=== PATIENT | male | born 1985 | race Caucasian/White ===

== ENCOUNTER 2021-11-29 19:11 | Emergency (ER) | payer OTHER ==
[2021-11-29 19:23] VITALS: TEMP 98.9
[2021-11-29 19:44] LABS: Appearance,Urine Clear (Clear); Bilirubin,Urine Negative (Negative); Blood,Urine Negative (Negative); Color,Urine Light Yellow; Glucose,Urine (UA) Negative (Negative); Ketones,Urine Negative (Negative); Leukocyte Esterase,Urine Negative (Negative); Nitrite,Urine Negative (Negative); PH, Urine 6.5 (5.0-8.0); Protein,Urine Negative (Negative); Specific Gravity,Urine 1.003 (1.001-1.035); Urobilinogen,Urine <2.0 mg/dL (<2.0)
[2021-11-29 20:00] LABS: Amphetamine Screen,Urine Detected (NotDetected); Barbiturate Screen,Urine Not Detected (NotDetected); Benzodiazepines Screen,Urine Not Detected (NotDetected); Cocaine Screen,Urine Not Detected (NotDetected); Methadone Screen, Urine Not Detected (NotDetected); Opiate Screen,Urine Not Detected (NotDetected); Oxycodone Screen, Urine Not Detected (NotDetected); Phencyclidine Screen,Urine Not Detected (NotDetected); Tricyclic Antidepressant,Urine Not Detected (NotDetected); Urn Cannabinoid Scrn Detected (NotDetected)
--- NOTE | 2021-11-29 21:45 | ED ---
General Adult HPI - General Source: patient Mode of arrival: ambulatory Limitations: no limitations <Preston Chandra - Last Filed: 11/29/21 22:49> <Cosmo Barton - Last Filed: 11/30/21 12:49> - General Chief complaint: Psychiatric Symptoms Stated complaint: Mental health eval Time Seen by Provider: 11/29/21 19:28 - History of Present Illness Initial comments: Dictation was produced using [employer] dictation software. please excuse any grammatical, word or spelling errors. Chief Complaint: 36-year-old male presents to the emergency department for visual and auditory hallucinations. History of Present Illness: 6-year-old male who presents to emergency Department with request for mental health admission. Patient states that he has been having visual and auditory hallucinations. Denies any suicidal or homicidal ideation. Patient state he used sympathomimetics recently and states that he still high. Patient has no medical complaints. The ROS documented in this emergency department record has been reviewed and confirmed by me. Those systems with pertinent positive or negative responses have been documented in the HPI. All other systems are other negative and/or noncontributory. PHYSICAL EXAM: General Impression: Alert and oriented x3, not in acute distress HEENT: Normocephalic atraumatic, extra-ocular movements intact, pupils equal and reactive to light bilaterally, mucous membranes moist. Cardiovascular: Heart regular rate and rhythm Chest: Able to complete full sentences, no retractions, no tachypnea Abdomen: abdomen soft, non-tender, non-distended, no organomegaly Musculoskeletal: Pulses present and equal in all extremities, no peripheral edema Motor: no focal deficits noted Neurological: CN II-XII grossly intact, no focal motor or sensory deficits noted Skin: Intact with no visualized rashes Psych: Normal affect and mood ED course: 36-year-old male presents emergency department for psychiatric complaint. Patient reporting visual auditory hallucinations. Signs upon arrival are within acceptable limits. Patient is well-appearing and not complaining of any medical issues at this time. Patient had been in the waiting room for approximately 2 hours and 30 minutes until he was able to be rubbed in bed 14. Patient medically cleared for EPS evaluation. care signed out to Dr. Priest pending EPS evaluation. (Preston Chandra) - Related Data Home Medications Medication Instructions Recorded Confirmed No Known Home Medications 11/29/21 11/29/21 Allergies Allergy/AdvReac Type Severity Reaction Status Date / Time venom-honey bee Allergy Anaphylaxis Verified 11/29/21 22:59 [bee venom (honey bee)] Review of Systems ROS Other: All systems not noted in ROS Statement are negative. <Preston Chandra - Last Filed: 11/29/21 22:49> ROS Other: All systems not noted in ROS Statement are negative. <Cosmo Barton - Last Filed: 11/30/21 12:49> ROS Statement: Those systems with pertinent positive or pertinent negative responses have been documented in the HPI. Past Medical History Past Medical History: Hypertension Additional Past Medical History / Comment(s): IVDA History of Any Multi-Drug Resistant Organisms: None Reported Past Surgical History: No Surgical Hx Reported Past Anesthesia/Blood Transfusion Reactions: Unable to Obtain Past Psychological History: ADD/ADHD, Anxiety, Bipolar, Depression, PTSD Smoking Status: Current every day smoker Past Alcohol Use History: Daily Past Drug Use History: IV Drug Use, Methamphetamine <Preston Chandra - Last Filed: 11/29/21 22:49> General Exam Limitations: no limitations <Preston Chandra - Last Filed: 11/29/21 22:49> Course Vital Signs 11/29/21 19:18 Temperature 98.9 F Pulse Rate 108 H Respiratory 22 Rate Blood Pressure 165/101 O2 Sat by Pulse 98 Oximetry Medical Decision Making - Lab Data Result diagrams: 11/30/21 03:13 11/30/21 03:13 <Cosmo Barton - Last Filed: 11/30/21 12:49> - Medical Decision Making Patient was putting psych evaluation. EPS and psychiatry Dr. Edwards evaluated the patient in that he is stable for discharge home. Will provide with a safety plan. Patient was discharged home in stable condition. (Cosmo Barton) - Lab Data Lab Results 11/29/21 11/30/21 11/30/21 Range/Units 19:31 03:13 03:13 WBC 14.5 H (3.8-10.6) k/uL RBC 4.92 (4.30-5.90) m/uL Hgb 16.5 (13.0-17.5) gm/dL Hct 47.5 (39.0-53.0) % MCV 96.4 (80.0-100.0) fL MCH 33.5 (25.0-35.0) pg MCHC 34.7 (31.0-37.0) g/dL RDW 13.4 (11.5-15.5) % Plt Count 384 (150-450) k/uL MPV 6.8 Neutrophils % 76 % Lymphocytes % 15 % Monocytes % 6 % Eosinophils % 1 % Basophils % 0 % Neutrophils # 11.1 H (1.3-7.7) k/uL Lymphocytes # 2.2 (1.0-4.8) k/uL Monocytes # 0.9 (0-1.0) k/uL Eosinophils # 0.1 (0-0.7) k/uL Basophils # 0.0 (0-0.2) k/uL Sodium 134 L (137-145) mmol/L Potassium 4.3 (3.5-5.1) mmol/L Chloride 101 (98-107) mmol/L Carbon Dioxide 23 (22-30) mmol/L Anion Gap 10 mmol/L BUN 13 (9-20) mg/dL Creatinine 0.87 (0.66-1.25) mg/dL Est GFR (CKD-EPI)AfAm >90 (>60 ml/min/1.73 sqM) Est GFR (CKD-EPI)NonAf >90 (>60 ml/min/1.73 sqM) Glucose 102 H (74-99) mg/dL Calcium 10.0 (8.4-10.2) mg/dL Magnesium 1.8 (1.6-2.3) mg/dL Urine Color Light Yellow Urine Appearance Clear (Clear) Urine pH 6.5 (5.0-8.0) Ur Specific [place] 1.003 (1.001-1.035) Urine Protein Negative (Negative) Urine Glucose (UA) Negative (Negative) Urine Ketones Negative (Negative) Urine Blood Negative (Negative) Urine Nitrite Negative (Negative) Urine Bilirubin Negative (Negative) Urine Urobilinogen <2.0 (<2.0) mg/dL Ur Leukocyte Esterase Negative (Negative) Urine Opiates Screen Not Detected (NotDetected) Ur Oxycodone Screen Not Detected (NotDetected) Urine Methadone Screen Not Detected (NotDetected) Ur Propoxyphene Screen Not Detected (NotDetected) Ur Barbiturates Screen Not Detected (NotDetected) U Tricyclic Antidepress Not Detected (NotDetected) Ur Phencyclidine Scrn Not Detected (NotDetected) Ur Amphetamines Screen Detected H (NotDetected) U Methamphetamines Scrn Detected H (NotDetected) U Benzodiazepines Scrn Not Detected (NotDetected) Urine Cocaine Screen Not Detected (NotDetected) U Marijuana (THC) Screen Detected H (NotDetected) Disposition <Preston Chandra - Last Filed: 11/29/21 22:49> Is patient prescribed a controlled substance at d/c from ED?: No <Cosmo Barton - Last Filed: 11/30/21 12:49> Clinical Impression: Encounter for psychiatric assessment Disposition: HOME SELF-CARE Condition: Fair Additional Instructions: Please see safety plan for further instructions. Referrals: None,Stated [Primary Care Provider] - 1-2 days
[2021-11-30] MEDS ORDERED: LORazepam 1 MG TAB PO STA (00:35)
[2021-11-30] MEDS ORDERED: ZIPRASIDONE 20 MG CAP PO STA (01:49)
[2021-11-30] MEDS ORDERED: SODIUM CHLORIDE 0.9% 1,000 ML IV ONE (02:40)
[2021-11-30 03:45] LABS: Basophils % (A) 0 %; Eosinophils # (A) 0.1 k/uL (0-0.7); Eosinophils % (A) 1 %; HCT 47.5 % (39.0-53.0); HGB 16.5 gm/dL (13.0-17.5); Lymphocytes # (A) 2.2 k/uL (1.0-4.8); Lymphocytes % (A) 15 %; MCH 33.5 pg (25.0-35.0); MCHC 34.7 g/dL (31.0-37.0); MCV 96.4 fL (80.0-100.0); Mean Platelet Volume 6.8; Monocytes # (A) 0.9 k/uL (0-1.0); Monocytes % (A) 6 %; Neutrophils # (A) 11.1 k/uL (1.3-7.7); Neutrophils % (A) 76 %; Platelet Count 384 k/uL (150-450); RBC 4.92 m/uL (4.30-5.90); RDW 13.4 % (11.5-15.5); WBC 14.5 k/uL (3.8-10.6)
[2021-11-30 04:03] LABS: African American GFR (CKD) >90 (>60 ml/min/1.73 sqM); Anion Gap 10 mmol/L; Blood Urea Nitrogen 13 mg/dL (9-20); Carbon Dioxide 23 mmol/L (22-30); Chloride 101 mmol/L (98-107); Glucose 102 mg/dL (74-99); Magnesium 1.8 mg/dL (1.6-2.3); Non-African American GFR(CKD) >90 (>60 ml/min/1.73 sqM); Potassium 4.3 mmol/L (3.5-5.1); Sodium 134 mmol/L (137-145)
[2021-11-30 13:39] VITALS: BP 148/81; PULSE 96; RESP 18
== END 2021-11-30 13:39 | disposition home or self-care (01) ==
LOC: EC 19:11
DX: R44.0 Auditory hallucinations (principal); I10 Essential (primary) hypertension; F17.200 Nicotine dependence, unspecified, uncomplicated; Z91.030 Bee allergy status
CPT/HCPCS: 36415; 80048; 80306; 81003; 82075; 83735; 85025; 96360; 99284

== ENCOUNTER 2022-06-06 21:30 | Emergency (ER) | payer OTHER ==
[2022-06-06 21:49] VITALS: BP 149/84
--- NOTE | 2022-06-06 22:09 | ED ---
General Adult HPI - General Chief complaint: Drug Screen Stated complaint: Detox Time Seen by Provider: 06/06/22 21:41 Source: patient, RN notes reviewed Mode of arrival: EMS Limitations: no limitations - History of Present Illness Initial comments: 37-year-old male with a history of methamphetamine abuse presents to the emergency department with a chief complaint of medical clearance. She reports that he is a patient at [facility] for alcohol withdrawal and detox, and [facility] requested that he be evaluated in the emergency department. Patient reports that he snorted two lines of methamphetamine two days ago and reports feeling jittery and is unable to sit still. Patient reports that his last drink was beer on saturday. He denies headache, fever, chills, chest pain, palpitations, shortness of breath, cough, abdominal pain, NVD, dysuria. Patient denies homicidal/suicidal ideation. Denies auditory/visual hallucinations. - Related Data Home Medications Medication Instructions Recorded Confirmed No Known Home Medications 11/29/21 11/29/21 Allergies Allergy/AdvReac Type Severity Reaction Status Date / Time venom-honey bee Allergy Anaphylaxis Verified 11/29/21 22:59 [bee venom (honey bee)] Review of Systems ROS Statement: Those systems with pertinent positive or pertinent negative responses have been documented in the HPI. ROS Other: All systems not noted in ROS Statement are negative. Past Medical History Past Medical History: Hypertension Additional Past Medical History / Comment(s): IVDA History of Any Multi-Drug Resistant Organisms: None Reported Past Surgical History: No Surgical Hx Reported Past Anesthesia/Blood Transfusion Reactions: Unable to Obtain Past Psychological History: ADD/ADHD, Anxiety, Bipolar, Depression, PTSD Smoking Status: Current every day smoker Past Alcohol Use History: Daily Past Drug Use History: IV Drug Use, Methamphetamine General Exam Limitations: no limitations General appearance: alert, in no apparent distress, anxious, other (Pt is pacing around room, patient is hyperactive but cooperative when given commands) Head exam: Present: atraumatic, normocephalic, normal inspection Eye exam: Present: normal appearance, PERRL, EOMI. Absent: scleral icterus, conjunctival injection, periorbital swelling ENT exam: Present: normal exam, mucous membranes moist Neck exam: Present: normal inspection. Absent: tenderness, meningismus, lymphadenopathy Respiratory exam: Present: normal lung sounds bilaterally. Absent: respiratory distress, wheezes, rales, rhonchi, stridor Cardiovascular Exam: Present: regular rate, normal rhythm, normal heart sounds. Absent: systolic murmur, diastolic murmur, rubs, gallop, clicks GI/Abdominal exam: Present: soft, normal bowel sounds. Absent: distended, tenderness, guarding, rebound, rigid Extremities exam: Present: normal inspection, full ROM, normal capillary refill. Absent: tenderness, pedal edema, joint swelling, calf tenderness Back exam: Present: normal inspection Neurological exam: Present: alert, oriented X3, CN II-XII intact Psychiatric exam: Present: normal affect, normal mood Skin exam: Present: warm, dry, intact, normal color. Absent: rash Course Vital Signs 06/06/22 21:48 Pulse Rate 84 Respiratory 18 Rate Blood Pressure 149/84 O2 Sat by Pulse 99 Oximetry EKG Findings - EKG Comments: EKG Findings:: I interpreted the following: EKG performed at 22:18. Rate 85 bpm normal sinus rhythm. GA interval 159, QRS duration 105, QT/QTc 360/403 Medical Decision Making - Medical Decision Making Was pt. sent in by a medical professional or institution (BRIDGER Zuniga, [employer], urgent care, hospital, or group home...) When possible be specific @ -[No] Did you speak to anyone other than the patient for history (EMS, parent, family, police, friend...)? What history was obtained from this source @ -[No] Did you review nursing and triage notes (agree or disagree)? Why? @ -[I reviewed and agree with nursing and triage notes] Were old charts reviewed (outside hosp., previous admission, EMS record, old EKG, old radiological studies, urgent care reports/EKG's, group home records)? Report findings @ -[No old charts were reviewed] Differential Diagnosis (chest pain, altered mental status, abdominal pain women, abdominal pain men, vaginal bleeding, weakness, fever, dyspnea, syncope, headache, dizziness, GI bleed, back pain, seizure, CVA, palpatations, mental health)? @ -[not applicable] EKG interpreted by me (3pts min.). @ -[As above] X-rays interpreted by me (1pt min.). @ -[None done] CT interpreted by me (1pt min.). @ -[None done] U/S interpreted by me (1pt. min.). @ -[None done] What testing was considered but not performed or refused? (CT, X-rays, U/S, labs)? Why? @ -[None] What meds were considered but not given or refused? Why? @ -[None] Did you discuss the management of the patient with other professionals (professionals i.e. Dr., PA, PR[employer]AL [employer]ER, lab, RT, psych nurse, social science manager, hammersmith helper, teacher, program officer, porter sample case)? Give summary @ -[No] Was smoking cessation discussed for >3mins.? @ -[No] Was critical care preformed (if so, how long)? @ -[No] Were there social determinants of health that impacted care today? How? (Homelessness, low income, unemployed, alcoholism, drug addiction, transportation, low edu. Level, literacy, decrease access to med. care, detention, rehab)? @ -[No] Was there de-escalation of care discussed even if they declined (Discuss DNR or withdrawal of care, Hospice)? DNR status @ -[No] What co-morbidities impacted this encounter? (DM, HTN, Smoking, COPD, CAD, Cancer, CVA, ARF, Chemo, Hep., AIDS, mental health diagnosis, sleep apnea, morbid obesity)? @ -[None] Was patient admitted / discharged? Hospital course, mention meds given and route, prescriptions, significant lab abnormalities, going to OR and other pertinent info. @ -37 -year-old male presents to the emergency department for medical clearance. She had a history and physical performed while in the emergency department. physical exam reveals anxious, pleasant male in no acute distress, heart rate regular, lung sounds clear bilaterally. Lab work and EKG essentially unremarkable. Patient is medically cleared. He was encouraged to follow up with his primary care doctor within 1-2 days if symptoms worsen or persist. Return precautions were discussed. Patient was discharged in stable condition all questions and comments were addressed. I discussed the case with Dr. Arreaga [facility] who agrees with the plan of care. Undiagnosed new problem with uncertain prognosis? @ -[No] Drug Therapy requiring intensive monitoring for toxicity (Heparin, Nitro, Insulin, Cardizem)? @ -[No] Were any procedures done? @ -[No] Diagnosis/symptom? @ -medical clearance a Acute, or Chronic, or Acute on Chronic? @ acute Uncomplicated (without systemic symptoms) or Complicated (systemic symptoms)? @ -uncomplicated Side effects of treatment? @ -[No] Exacerbation, Progression, or Severe Exacerbation? @ -[No] Poses a threat to life or bodily function? How? (Chest pain, USA, ID, pneumonia, PE, COPD, DKA, ARF, appy, cholecystitis, CVA, Diverticulitis, Homicidal, Suicidal, threat to staff... and all critical care pts) @ -[No] - Lab Data Result diagrams: 06/06/22 22:12 06/06/22 22:12 Lab Results 06/06/22 06/06/22 06/06/22 Range/Units 21:33 22:12 22:12 WBC 12.6 H (3.8-10.6) k/uL RBC 4.71 (4.30-5.90) m/uL Hgb 15.9 (13.0-17.5) gm/dL Hct 45.2 (39.0-53.0) % MCV 96.0 (80.0-100.0) fL MCH 33.7 (25.0-35.0) pg MCHC 35.1 (31.0-37.0) g/dL RDW 12.0 (11.5-15.5) % Plt Count 413 (150-450) k/uL MPV 6.5 Neutrophils % 66 % Lymphocytes % 23 % Monocytes % 7 % Eosinophils % 2 % Basophils % 1 % Neutrophils # 8.3 H (1.3-7.7) k/uL Lymphocytes # 2.9 (1.0-4.8) k/uL Monocytes # 0.9 (0-1.0) k/uL Eosinophils # 0.2 (0-0.7) k/uL Basophils # 0.1 (0-0.2) k/uL Sodium 134 L (137-145) mmol/L Potassium 4.7 (3.5-5.1) mmol/L Chloride 101 (98-107) mmol/L Carbon Dioxide 26 (22-30) mmol/L Anion Gap 7 mmol/L BUN 14 (9-20) mg/dL Creatinine 0.79 (0.66-1.25) mg/dL Est GFR (CKD-EPI)AfAm >90 (>60 ml/min/1.73 sqM) Est GFR (CKD-EPI)NonAf >90 (>60 ml/min/1.73 sqM) Glucose 89 (74-99) mg/dL Calcium 9.4 (8.4-10.2) mg/dL Urine Opiates Screen Not Detected (NotDetected) Ur Oxycodone Screen Not Detected (NotDetected) Urine Methadone Screen Not Detected (NotDetected) Ur Propoxyphene Screen Not Detected (NotDetected) Ur Barbiturates Screen Not Detected (NotDetected) U Tricyclic Antidepress Not Detected (NotDetected) Ur Phencyclidine Scrn Not Detected (NotDetected) Ur Amphetamines Screen Detected H (NotDetected) U Methamphetamines Scrn Detected H (NotDetected) U Benzodiazepines Scrn Not Detected (NotDetected) Urine Cocaine Screen Not Detected (NotDetected) U Marijuana (THC) Screen Detected H (NotDetected) Disposition Clinical Impression: Well adult exam Disposition: HOME SELF-CARE Condition: Stable Additional Instructions: Please return to the nearest emergency department if symptoms worsen or persist. Is patient prescribed a controlled substance at d/c from ED?: No Referrals: None,Stated [Primary Care Provider] - 1-2 days
[2022-06-06 22:19] LABS: Basophils # (A) 0.1 k/uL (0-0.2); Basophils % (A) 1 %; Eosinophils # (A) 0.2 k/uL (0-0.7); Eosinophils % (A) 2 %; HCT 45.2 % (39.0-53.0); HGB 15.9 gm/dL (13.0-17.5); Lymphocytes # (A) 2.9 k/uL (1.0-4.8); Lymphocytes % (A) 23 %; MCH 33.7 pg (25.0-35.0); MCHC 35.1 g/dL (31.0-37.0); Mean Platelet Volume 6.5; Monocytes # (A) 0.9 k/uL (0-1.0); Monocytes % (A) 7 %; Neutrophils # (A) 8.3 k/uL (1.3-7.7); Neutrophils % (A) 66 %; Platelet Count 413 k/uL (150-450); RBC 4.71 m/uL (4.30-5.90); WBC 12.6 k/uL (3.8-10.6)
[2022-06-06 22:27] LABS: Amphetamine Screen,Urine Detected (NotDetected); Barbiturate Screen,Urine Not Detected (NotDetected); Benzodiazepines Screen,Urine Not Detected (NotDetected); Cocaine Screen,Urine Not Detected (NotDetected); Methadone Screen, Urine Not Detected (NotDetected); Opiate Screen,Urine Not Detected (NotDetected); Oxycodone Screen, Urine Not Detected (NotDetected); Phencyclidine Screen,Urine Not Detected (NotDetected); Tricyclic Antidepressant,Urine Not Detected (NotDetected); Urn Cannabinoid Scrn Detected (NotDetected)
[2022-06-06 22:28] LABS: African American GFR (CKD) >90 (>60 ml/min/1.73 sqM); Anion Gap 7 mmol/L; Blood Urea Nitrogen 14 mg/dL (9-20); Calcium 9.4 mg/dL (8.4-10.2); Carbon Dioxide 26 mmol/L (22-30); Chloride 101 mmol/L (98-107); Glucose 89 mg/dL (74-99); Non-African American GFR(CKD) >90 (>60 ml/min/1.73 sqM); Potassium 4.7 mmol/L (3.5-5.1); Sodium 134 mmol/L (137-145)
[2022-06-06 23:06] VITALS: PULSE 75; RESP 20
== END 2022-06-06 22:58 | disposition home or self-care (01) ==
LOC: EC 21:30
DX: I10 Essential (primary) hypertension (principal); F31.9 Bipolar disorder, unspecified; F41.9 Anxiety disorder, unspecified; F17.200 Nicotine dependence, unspecified, uncomplicated; Z00.00 Encounter for general adult medical examination without abnormal findings; Z91.038 Other insect allergy status
CPT/HCPCS: 36415; 80048; 80306; 82075; 85025; 93005; 99283

== ENCOUNTER 2022-06-07 10:20 | Emergency (ER) | payer OTHER ==
[2022-06-07 10:31] VITALS: RESP 16; TEMP 98
[2022-06-07 11:04] LABS: Amphetamine Screen,Urine Detected (NotDetected); Barbiturate Screen,Urine Not Detected (NotDetected); Benzodiazepines Screen,Urine Not Detected (NotDetected); Cocaine Screen,Urine Not Detected (NotDetected); Methadone Screen, Urine Not Detected (NotDetected); Opiate Screen,Urine Not Detected (NotDetected); Oxycodone Screen, Urine Not Detected (NotDetected); Phencyclidine Screen,Urine Not Detected (NotDetected); Tricyclic Antidepressant,Urine Not Detected (NotDetected); Urn Cannabinoid Scrn Detected (NotDetected)
--- NOTE | 2022-06-07 11:31 | ED ---
Psych HPI <EdiAlex bal - Last Filed: 06/07/22 17:45> - General Source: patient, family, RN notes reviewed Mode of arrival: ambulatory Limitations: no limitations <Reggie Abraham - Last Filed: 06/09/22 07:43> - General Chief Complaint: Psychiatric Symptoms Stated Complaint: mental health Time Seen by Provider: 06/07/22 10:31 - History of Present Illness Initial Comments: 37-year-old male presents emergency from for psychiatric evaluation. Patient states he still been having visual and auditory hallucinations. Patient states that his last use of methamphetamines was Saturday. Patient was seen here had lab work is essentially in by [facility]. Patient states he was discharged but he took his own ride and he was accepted back to [facility]. Patient continues to have this hallucinations he attempted to get drugs, alcohol last night though significant other in the room states this did not happen. Patient denies any physical complaints he does admit to regular alcohol use. (Reggie Abraham) - Related Data Home Medications Medication Instructions Recorded Confirmed buPROPion HCL [buPROPion HCL SR] 150 mg PO DAILY 06/07/22 06/07/22 Allergies Allergy/AdvReac Type Severity Reaction Status Date / Time venom-honey bee Allergy Anaphylaxis Verified 06/07/22 15:03 [bee venom (honey bee)] Review of Systems ROS Other: All systems not noted in ROS Statement are negative. <EdivalerianoAlex - Last Filed: 06/07/22 17:45> ROS Other: All systems not noted in ROS Statement are negative. <Reggie Abraham - Last Filed: 06/09/22 07:43> ROS Statement: Those systems with pertinent positive or pertinent negative responses have been documented in the HPI. Past Medical History Past Medical History: Hypertension Additional Past Medical History / Comment(s): IVDA History of Any Multi-Drug Resistant Organisms: None Reported Past Surgical History: No Surgical Hx Reported Past Anesthesia/Blood Transfusion Reactions: Unable to Obtain Past Psychological History: ADD/ADHD, Anxiety, Bipolar, Depression, PTSD Smoking Status: Current every day smoker Past Alcohol Use History: Daily Past Drug Use History: IV Drug Use, Methamphetamine <Reggie Abraham - Last Filed: 06/09/22 07:43> General Exam Limitations: no limitations General appearance: alert, in no apparent distress Head exam: Present: atraumatic, normocephalic, normal inspection Eye exam: Present: normal appearance, PERRL, EOMI. Absent: scleral icterus, conjunctival injection, periorbital swelling ENT exam: Present: normal exam, normal oropharynx, mucous membranes moist Neck exam: Present: normal inspection, full ROM. Absent: tenderness, meningismus, lymphadenopathy Respiratory exam: Present: normal lung sounds bilaterally. Absent: respiratory distress, wheezes, rales, rhonchi, stridor Cardiovascular Exam: Present: regular rate, normal rhythm, normal heart sounds. Absent: systolic murmur, diastolic murmur, rubs, gallop, clicks Neurological exam: Present: alert, oriented X3, CN II-XII intact Psychiatric exam: Present: anxious Skin exam: Present: warm, dry, intact, normal color. Absent: rash <Reggie Abraham - Last Filed: 06/09/22 07:43> Course Vital Signs 06/07/22 06/07/22 10:28 17:52 Temperature 98 F Pulse Rate 73 66 Respiratory 16 16 Rate Blood Pressure 176/70 124/75 O2 Sat by Pulse 98 98 Oximetry Medical Decision Making <Reggie Abraham - Last Filed: 06/09/22 07:43> - Medical Decision Making Was pt. sent in by a medical professional or institution (Dr. PA, C[employer] VAN SALESPERSON, urgent care, hospital, or fpc...) When possible be specific @ -No Did you speak to anyone other than the patient for history (EMS, parent, family, police, friend...)? What history was obtained from this source @ -No Did you review nursing and triage notes (agree or disagree)? Why? @ -I reviewed and agree with nursing and triage notes Were old charts reviewed (outside hosp., previous admission, EMS record, old EKG, old radiological studies, urgent care reports/EKG's, fpc records)? Report findings @ -No old charts were reviewed Differential Diagnosis (chest pain, altered mental status, abdominal pain women, abdominal pain men, vaginal bleeding, weakness, fever, dyspnea, syncope, headache, dizziness, GI bleed, back pain, seizure, CVA, palpatations, mental health)? @ -Schizophrenic, bipolar disorder,'s psychosis, drug-induced delirium EKG interpreted by me (3pts min.). @ -None X-rays interpreted by me (1pt min.). @ -None done CT interpreted by me (1pt min.). @ -None done U/S interpreted by me (1pt. min.). @ -None done What testing was considered but not performed or refused? (CT, X-rays, U/S, labs)? Why? @ -None What meds were considered but not given or refused? Why? @ -None Did you discuss the management of the patient with other professionals (professionals i.e. , PA, C[employer] VAN SALESPERSON, lab, RT, psych nurse, social scientist, urban planning professor, teacher, security flex officer, insurance case manager)? Give summary @ -No Was smoking cessation discussed for >3mins.? @ -No Was critical care preformed (if so, how long)? @ -No Were there social determinants of health that impacted care today? How? (Homelessness, low income, unemployed, alcoholism, drug addiction, transportation, low edu. Level, literacy, decrease access to med. care, snf, rehab)? @ -No Was there de-escalation of care discussed even if they declined (Discuss DNR or withdrawal of care, Hospice)? DNR status @ -No What co-morbidities impacted this encounter? (DM, HTN, Smoking, COPD, CAD, Cancer, CVA, ARF, Chemo, Hep., AIDS, mental health diagnosis, sleep apnea, morbid obesity)? @ -None Was patient admitted / discharged? Hospital course, mention meds given and route, prescriptions, significant lab abnormalities, going to OR and other pertinent info. @ -Discharge. Patient was evaluated EPS, patient's was able to sleep, van Carrillo patient was reevaluated and discharged in stable condition. Undiagnosed new problem with uncertain prognosis? @ -No Drug Therapy requiring intensive monitoring for toxicity (Heparin, Nitro, Insulin, Cardizem)? @ -No Were any procedures done? @ -No Diagnosis/symptom? @ -Methamphetamine abuse Acute, or Chronic, or Acute on Chronic? @ -Acute on chronic Uncomplicated (without systemic symptoms) or Complicated (systemic symptoms)? @ -Complicated Side effects of treatment? @ -No Exacerbation, Progression, or Severe Exacerbation? @ -No Poses a threat to life or bodily function? How? (Chest pain, [place], [place], pneumonia, PE, COPD, DKA, ARF, appy, cholecystitis, CVA, Diverticulitis, Homicidal, Suicidal, threat to staff... and all critical care pts) @ -No (Reggie Abraham) - Lab Data Lab Results 06/07/22 Range/Units 10:46 Urine Opiates Screen Not Detected (NotDetected) Ur Oxycodone Screen Not Detected (NotDetected) Urine Methadone Screen Not Detected (NotDetected) Ur Propoxyphene Screen Not Detected (NotDetected) Ur Barbiturates Screen Not Detected (NotDetected) U Tricyclic Antidepress Not Detected (NotDetected) Ur Phencyclidine Scrn Not Detected (NotDetected) Ur Amphetamines Screen Detected H (NotDetected) U Methamphetamines Scrn Detected H (NotDetected) U Benzodiazepines Scrn Not Detected (NotDetected) Urine Cocaine Screen Not Detected (NotDetected) U Marijuana (THC) Screen Detected H (NotDetected) Disposition Is patient prescribed a controlled substance at d/c from ED?: No <Alex Priest - Last Filed: 06/07/22 17:45> <Reggie Abraham - Last Filed: 06/09/22 07:43> Clinical Impression: Mood disorder, Substance abuse Disposition: HOME SELF-CARE Condition: Fair Instructions (If sedation given, give patient instructions): Mood Disorders (ED) Referrals: None,Stated [Primary Care Provider] - 1-2 days
[2022-06-07] MEDS ORDERED: ZIPRASIDONE 20 MG VIAL IM STA (12:36)
[2022-06-07 17:54] VITALS: BP 124/75; PULSE 66
== END 2022-06-07 18:07 | disposition home or self-care (01) ==
LOC: EC 10:20
DX: F39 Unspecified mood [affective] disorder (principal); F19.10 Other psychoactive substance abuse, uncomplicated; I10 Essential (primary) hypertension; F90.9 Attention-deficit hyperactivity disorder, unspecified type; F41.9 Anxiety disorder, unspecified; F31.9 Bipolar disorder, unspecified; F17.200 Nicotine dependence, unspecified, uncomplicated; F15.10 Other stimulant abuse, uncomplicated; Z91.030 Bee allergy status
CPT/HCPCS: 82075; 80306; 99285; 96372; J3486

== ENCOUNTER 2023-03-03 19:52 | Inpatient (IN) | payer MEDICAID, OTHER ==
[2023-03-04] MEDS ORDERED: LORazepam 2 MG/ML INJ IV PRN (01:05)
--- NOTE | 2023-03-04 01:27 | ED ---
General Adult HPI <Alexey Robison Jodi - Last Filed: 03/05/23 12:14> - General Source: patient, family Mode of arrival: ambulatory Limitations: no limitations <Jacques Garcia - Last Filed: 03/06/23 10:24> - General Chief complaint: Psychiatric Symptoms Stated complaint: Alcohol Withdrawal Time Seen by Provider: 03/03/23 23:35 - History of Present Illness Initial comments: A 38-year-old male presenting with chief complaint of psychiatric issue. Per father, patient has had paranoid delusions. States that people are out to get him. Also states that the patient is a drug abuser and drinks alcohol on a daily basis. States that he snorts drug. Unsure of IV drug use. Patient refusing to give history. Mother states that this has been ongoing for the past 6 months. States that he is no longer able to help manage the patient's symptoms. His last drink sometime this morning possibly around 3 AM however patient is not sure. No firearms available in the house. (Jacques Garcia) - Related Data Home Medications Medication Instructions Recorded Confirmed No Known Home Medications 03/04/23 03/04/23 Allergies Allergy/AdvReac Type Severity Reaction Status Date / Time venom-honey bee Allergy Anaphylaxis Verified 03/04/23 11:01 [bee venom (honey bee)] Review of Systems ROS Other: All systems not noted in ROS Statement are negative. <Alexey Robison Jodi - Last Filed: 03/05/23 12:14> ROS Other: All systems not noted in ROS Statement are negative. <Jacques Garcia - Last Filed: 03/06/23 10:24> ROS Statement: Those systems with pertinent positive or pertinent negative responses have been documented in the HPI. Past Medical History Past Medical History: Hypertension Additional Past Medical History / Comment(s): IVDA History of Any Multi-Drug Resistant Organisms: None Reported Past Surgical History: No Surgical Hx Reported Past Anesthesia/Blood Transfusion Reactions: Unable to Obtain Past Psychological History: ADD/ADHD, Anxiety, Bipolar, Depression, PTSD Smoking Status: Current every day smoker Past Alcohol Use History: Abuse, Daily, Heavy Past Drug Use History: Heroin, IV Drug Use, Methamphetamine, Opiates <Jacques Garcia - Last Filed: 03/06/23 10:24> General Exam Limitations: no limitations General appearance: alert <Jacques Garcia - Last Filed: 03/06/23 10:24> Course Vital Signs 03/03/23 03/04/23 03/04/23 19:56 07:33 14:44 Temperature 98.3 F 98 F 98.2 F Pulse Rate 105 H 94 99 Respiratory 20 16 18 Rate Blood Pressure 183/85 151/81 142/99 O2 Sat by Pulse 98 97 98 Oximetry 03/05/23 03/05/23 03/05/23 06:51 08:00 16:11 Temperature Pulse Rate 75 84 69 Respiratory 19 17 18 Rate Blood Pressure 130/95 134/98 147/97 O2 Sat by Pulse 97 98 100 Oximetry 03/05/23 19:52 Temperature Pulse Rate 82 Respiratory 14 Rate Blood Pressure 147/108 O2 Sat by Pulse 99 Oximetry Procedures - Restraint - Face to Face Restraint Occurrence 1 Patient's Immediate Situation: Endangers self safety, Endangers staff safety Patient's Reaction to the Intervention: Calm, Fearful, Hostile, Belligerent Patient's Medical & Behavioral Condition: Follows directions, Anxious, Agitated Need to Continue or Terminate Restraint or Seclusion: Continue Face to Face Eval of Restraint Date: 03/05/23 Face to Face Eval of Restraint Time: 12:15 <Alexey Robison - Last Filed: 03/05/23 12:14> Medical Decision Making - Lab Data Result diagrams: 03/04/23 02:18 <Alexey Robison - Last Filed: 03/05/23 12:14> - Lab Data Result diagrams: 03/04/23 02:18 <Jacques Garcia - Last Filed: 03/06/23 10:24> - Medical Decision Making Was pt. sent in by a medical professional or institution (, PA, [employer] OPERATIONS MANAGER, urgent care, hospital, or intermediate...) When possible be specific @ -No Did you speak to anyone other than the patient for history (EMS, parent, family, police, friend...)? What history was obtained from this source @ -Spoke to the patient's father who reported parts of the history. For further details please see HPI. Did you review nursing and triage notes (agree or disagree)? Why? @ -I reviewed and agree with nursing and triage notes Were old charts reviewed (outside hosp., previous admission, EMS record, old EKG, old radiological studies, urgent care reports/EKG's, intermediate records)? Report findings @ -No old charts were reviewed Differential Diagnosis (chest pain, altered mental status, abdominal pain women, abdominal pain men, vaginal bleeding, weakness, fever, dyspnea, syncope, headache, dizziness, GI bleed, back pain, seizure, CVA, palpatations, mental health, musculoskeletal)? @ -Differential Mental Health Depression, anxiety, bipolar, psychosis, schizophrenia, borderline personality, situational depression, adjustment disorder, behavioral disorder, brain tumor, malingering, substance abuse, encephalopathy, medication reaction, dementia, hypothyroidism, degenerative neurologic disorder, lupus.... This is not meant to be all-inclusive list EKG interpreted by me (3pts min.). @ -None X-rays interpreted by me (1pt min.). @ -None done CT interpreted by me (1pt min.). @ -None done U/S interpreted by me (1pt. min.). @ -None done What testing was considered but not performed or refused? (CT, X-rays, U/S, l abs)? Why? @ -None What meds were considered but not given or refused? Why? @ -None Did you discuss the management of the patient with other professionals (professionals i.e. , PA, [employer]PER[employer] MANAGER, lab, RT, psych nurse, social service assistant, furnace feeder, teacher, bank secrecy act officer, community case manager)? Give summary @ -No Was smoking cessation discussed for >3mins.? @ -No Was critical care preformed (if so, how long)? @ -No Were there social determinants of health that impacted care today? How? (Homelessness, low income, unemployed, alcoholism, drug addiction, transportation, low edu. Level, literacy, decrease access to med. care, correction, rehab)? @ -No Was there de-escalation of care discussed even if they declined (Discuss DNR or withdrawal of care, Hospice)? DNR status @ -No What co-morbidities impacted this encounter? (DM, HTN, Smoking, COPD, CAD, Cance r, CVA, ARF, Chemo, Hep., AIDS, mental health diagnosis, sleep apnea, morbid obesity)? @ -None Was patient admitted / discharged? Hospital course, mention meds given and route, prescriptions, significant lab abnormalities, going to OR and other pertinent info. @ -Pending Disposition of patient pending EPS evaluation. Patient evaluated by EPS. At this time, recommending inpatient psychiatric care. (Jacques Garcia) - Lab Data Lab Results 03/04/23 03/04/23 03/04/23 Range/Units 02:18 02:18 02:18 WBC 9.1 (3.8-10.6) k/uL RBC 4.53 (4.30-5.90) m/uL Hgb 15.5 (13.0-17.5) gm/dL Hct 45.2 (39.0-53.0) % MCV 99.9 (80.0-100.0) fL MCH 34.2 (25.0-35.0) pg MCHC 34.3 (31.0-37.0) g/dL RDW 12.3 (11.5-15.5) % Plt Count 378 (150-450) k/uL MPV 6.6 Neutrophils % 59 % Lymphocytes % 31 % Monocytes % 6 % Eosinophils % 1 % Basophils % 0 % Neutrophils # 5.4 (1.3-7.7) k/uL Lymphocytes # 2.8 (1.0-4.8) k/uL Monocytes # 0.6 (0-1.0) k/uL Eosinophils # 0.1 (0-0.7) k/uL Basophils # 0.0 (0-0.2) k/uL Urine Color Colorless Urine Appearance Clear (Clear) Urine pH 6.5 (5.0-8.0) Ur Specific [place] 1.009 (1.001-1.035) Urine Protein Negative (Negative) Urine Glucose (UA) Negative (Negative) Urine Ketones Trace H (Negative) Urine Blood Negative (Negative) Urine Nitrite Negative (Negative) Urine Bilirubin Negative (Negative) Urine Urobilinogen <2.0 (<2.0) mg/dL Ur Leukocyte Esterase Negative (Negative) Urine Opiates Screen Not Detected (NotDetected) Ur Oxycodone Screen Not Detected (NotDetected) Urine Methadone Screen Not Detected (NotDetected) Ur Propoxyphene Screen Not Detected (NotDetected) Ur Barbiturates Screen Not Detected (NotDetected) U Tricyclic Antidepress Not Detected (NotDetected) Ur Phencyclidine Scrn Not Detected (NotDetected) Ur Amphetamines Screen Detected H (NotDetected) U Methamphetamines Scrn Detected H (NotDetected) U Benzodiazepines Scrn Not Detected (NotDetected) Urine Cocaine Screen Detected H (NotDetected) U Marijuana (THC) Screen Detected H (NotDetected) Serum Alcohol <10 mg/dL Influenza Type A (PCR) (Not Detectd) Influenza Type B (PCR) (Not Detectd) RSV (PCR) (Not Detectd) SARS-CoV-2 (PCR) (Not Detectd) 03/05/23 Range/Units 06:03 WBC (3.8-10.6) k/uL RBC (4.30-5.90) m/uL Hgb (13.0-17.5) gm/dL Hct (39.0-53.0) % MCV (80.0-100.0) fL MCH (25.0-35.0) pg MCHC (31.0-37.0) g/dL RDW (11.5-15.5) % Plt Count (150-450) k/uL MPV Neutrophils % % Lymphocytes % % Monocytes % % Eosinophils % % Basophils % % Neutrophils # (1.3-7.7) k/uL Lymphocytes # (1.0-4.8) k/uL Monocytes # (0-1.0) k/uL Eosinophils # (0-0.7) k/uL Basophils # (0-0.2) k/uL Urine Color Urine Appearance (Clear) Urine pH (5.0-8.0) Ur Specific [place] (1.001-1.035) Urine Protein (Negative) Urine Glucose (UA) (Negative) Urine Ketones (Negative) Urine Blood (Negative) Urine Nitrite (Negative) Urine Bilirubin (Negative) Urine Urobilinogen (<2.0) mg/dL Ur Leukocyte Esterase (Negative) Urine Opiates Screen (NotDetected) Ur Oxycodone Screen (NotDetected) Urine Methadone Screen (NotDetected) Ur Propoxyphene Screen (NotDetected) Ur Barbiturates Screen (NotDetected) U Tricyclic Antidepress (NotDetected) Ur Phencyclidine Scrn (NotDetected) Ur Amphetamines Screen (NotDetected) U Methamphetamines Scrn (NotDetected) U Benzodiazepines Scrn (NotDetected) Urine Cocaine Screen (NotDetected) U Marijuana (THC) Screen (NotDetected) Serum Alcohol mg/dL Influenza Type A (PCR) Not Detected (Not Detectd) Influenza Type B (PCR) Not Detected (Not Detectd) RSV (PCR) Not Detected (Not Detectd) SARS-CoV-2 (PCR) Not Detected (Not Detectd) Disposition <Alexey Robison - Last Filed: 03/05/23 12:14> <Jacques Garcia - Last Filed: 03/06/23 10:24> Clinical Impression: Psychiatric disorder Disposition: TRANSFER TO PSYCH HOSP/UNIT
[2023-03-04] MEDS ORDERED: diphenhydrAMINE 50 MG/ML 1 ML VIAL IM STA (01:33)
[2023-03-04] MEDS ORDERED: LORazepam 2 MG/ML INJ IM STA (01:33)
[2023-03-04] MEDS ORDERED: HALOPERIDOL LACTATE 5 MG/ML 1 ML VIAL IM STA (01:34)
[2023-03-04 02:27] LABS: Basophils % (A) 0 %; Eosinophils # (A) 0.1 k/uL (0-0.7); Eosinophils % (A) 1 %; HCT 45.2 % (39.0-53.0); HGB 15.5 gm/dL (13.0-17.5); Lymphocytes # (A) 2.8 k/uL (1.0-4.8); Lymphocytes % (A) 31 %; MCH 34.2 pg (25.0-35.0); MCHC 34.3 g/dL (31.0-37.0); MCV 99.9 fL (80.0-100.0); Mean Platelet Volume 6.6; Monocytes # (A) 0.6 k/uL (0-1.0); Monocytes % (A) 6 %; Neutrophils # (A) 5.4 k/uL (1.3-7.7); Neutrophils % (A) 59 %; Platelet Count 378 k/uL (150-450); RBC 4.53 m/uL (4.30-5.90); RDW 12.3 % (11.5-15.5); WBC 9.1 k/uL (3.8-10.6)
[2023-03-04] MEDS ORDERED: chlordiazePOXIDE 25 MG CAP PO PRN ×4 (03:33)
[2023-03-04 06:33] LABS: Appearance,Urine Clear (Clear); Bilirubin,Urine Negative (Negative); Blood,Urine Negative (Negative); Color,Urine Colorless; Glucose,Urine (UA) Negative (Negative); Ketones,Urine Trace (Negative); Leukocyte Esterase,Urine Negative (Negative); Nitrite,Urine Negative (Negative); PH, Urine 6.5 (5.0-8.0); Protein,Urine Negative (Negative); Specific Gravity,Urine 1.009 (1.001-1.035); Urobilinogen,Urine <2.0 mg/dL (<2.0)
[2023-03-04 06:45] LABS: Amphetamine Screen,Urine Detected (NotDetected); Barbiturate Screen,Urine Not Detected (NotDetected); Benzodiazepines Screen,Urine Not Detected (NotDetected); Cocaine Screen,Urine Detected (NotDetected); Methadone Screen, Urine Not Detected (NotDetected); Opiate Screen,Urine Not Detected (NotDetected); Oxycodone Screen, Urine Not Detected (NotDetected); Phencyclidine Screen,Urine Not Detected (NotDetected); Tricyclic Antidepressant,Urine Not Detected (NotDetected); Urn Cannabinoid Scrn Detected (NotDetected)
[2023-03-04] MEDS: LORazepam 2 MG/ML INJ IV PRN (09:45)
[2023-03-05] MEDS: LORazepam 2 MG/ML INJ IV PRN (06:22)
[2023-03-05] MEDS ORDERED: LORazepam 2 MG/ML INJ IV STA ×5 (06:37→17:34)
[2023-03-05] MEDS ORDERED: ZIPRASIDONE 20 MG VIAL IM STA (12:18)
[2023-03-05] MEDS ORDERED: OLANZapine 10 MG VIAL IM STA (14:33)
--- NOTE | 2023-03-05 22:14 | P.PN ---
Progress Note - Text Progress Note Date: 03/05/23 notified of new consult , patient is heavily medicated and currently sedated , unable to evaluate.
[2023-03-05] MEDS ORDERED: MAG HYDROX/AL HYDROX/SIMETH 30 ML CUP PO PRN (22:54)
[2023-03-05] MEDS ORDERED: HALOPERIDOL LACTATE 5 MG/ML 1 ML VIAL IM PRN (22:54)
[2023-03-05] MEDS ORDERED: LORazepam 2 MG/ML INJ IM PRN (22:54)
[2023-03-06] MEDS ORDERED: NICOTINE 14MG/24HR PATCH TRANSDERM SCH (09:00)
[2023-03-06] MEDS ORDERED: chlordiazePOXIDE 25 MG CAP PO SCH (09:00)
[2023-03-06] MEDS: haloperidoL 5 MG TAB PO PRN ×2 (10:37→18:16)
[2023-03-06] MEDS: LORazepam 1 MG TAB PO PRN ×2 (10:43→17:59)
[2023-03-06] MEDS ORDERED: traZODone HCL 100 MG TAB PO PRN (13:52)
--- NOTE | 2023-03-06 13:59 | P.HP ---
Psychiatric H&P - . H&P Date: 03/06/23 History & Physical: Allergies Allergy/AdvReac Type Severity Reaction Status Date / Time venom-honey bee Allergy Anaphylaxis Verified 03/04/23 11:01 bee venom (honey bee) Vital Signs Temp 97.9 F 03/05/23 21:38 Pulse 60 03/05/23 21:38 Resp 16 03/05/23 21:38 BP 106/64 03/05/23 21:38 Pulse Ox 99 03/05/23 21:38 FiO2 Laboratory Last Values WBC 9.1 k/uL (3.8-10.6) 03/04/23 02:18 RBC 4.53 m/uL (4.30-5.90) 03/04/23 02:18 Hgb 15.5 gm/dL (13.0-17.5) 03/04/23 02:18 Hct 45.2 % (39.0-53.0) 03/04/23 02:18 MCV 99.9 fL (80.0-100.0) 03/04/23 02:18 MCH 34.2 pg (25.0-35.0) 03/04/23 02:18 MCHC 34.3 g/dL (31.0-37.0) 03/04/23 02:18 RDW 12.3 % (11.5-15.5) 03/04/23 02:18 Plt Count 378 k/uL (150-450) 03/04/23 02:18 MPV 6.6 03/04/23 02:18 Neutrophils % 59 % 03/04/23 02:18 Lymphocytes % 31 % 03/04/23 02:18 Monocytes % 6 % 03/04/23 02:18 Eosinophils % 1 % 03/04/23 02:18 Basophils % 0 % 03/04/23 02:18 Neutrophils # 5.4 k/uL (1.3-7.7) 03/04/23 02:18 Lymphocytes # 2.8 k/uL (1.0-4.8) 03/04/23 02:18 Monocytes # 0.6 k/uL (0-1.0) 03/04/23 02:18 Eosinophils # 0.1 k/uL (0-0.7) 03/04/23 02:18 Basophils # 0.0 k/uL (0-0.2) 03/04/23 02:18 Urine Color Colorless 03/04/23 02:18 Urine Appearance Clear (Clear) 03/04/23 02:18 Urine pH 6.5 (5.0-8.0) 03/04/23 02:18 Ur Specific [place] 1.009 (1.001-1.035) 03/04/23 02:18 Urine Protein Negative (Negative) 03/04/23 02:18 Urine Glucose (UA) Negative (Negative) 03/04/23 02:18 Urine Ketones Trace (Negative) H 03/04/23 02:18 Urine Blood Negative (Negative) 03/04/23 02:18 Urine Nitrite Negative (Negative) 03/04/23 02:18 Urine Bilirubin Negative (Negative) 03/04/23 02:18 Urine Urobilinogen <2.0 mg/dL (<2.0) 03/04/23 02:18 Ur Leukocyte Esterase Negative (Negative) 03/04/23 02:18 Urine Opiates Screen Not Detected (NotDetected) 03/04/23 02:18 Ur Oxycodone Screen Not Detected (NotDetected) 03/04/23 02:18 Urine Methadone Screen Not Detected (NotDetected) 03/04/23 02:18 Ur Propoxyphene Screen Not Detected (NotDetected) 03/04/23 02:18 Ur Barbiturates Screen Not Detected (NotDetected) 03/04/23 02:18 U Tricyclic Antidepress Not Detected (NotDetected) 03/04/23 02:18 Ur Phencyclidine Scrn Not Detected (NotDetected) 03/04/23 02:18 Ur Amphetamines Screen Detected (NotDetected) H 03/04/23 02:18 U Methamphetamines Scrn Detected (NotDetected) H 03/04/23 02:18 U Benzodiazepines Scrn Not Detected (NotDetected) 03/04/23 02:18 Urine Cocaine Screen Detected (NotDetected) H 03/04/23 02:18 U Marijuana (THC) Screen Detected (NotDetected) H 03/04/23 02:18 Serum Alcohol <10 mg/dL 03/04/23 02:18 Influenza Type A (PCR) Not Detected (Not Detectd) 03/05/23 06:03 Influenza Type B (PCR) Not Detected (Not Detectd) 03/05/23 06:03 RSV (PCR) Not Detected (Not Detectd) 03/05/23 06:03 SARS-CoV-2 (PCR) Not Detected (Not Detectd) 03/05/23 06:03 03/06/23 13:53 IDENTIFYING DATA: Patient is a 38-year-old male who is currently homeless, unemployed HPI: Patient presented to the hospital yesterday on petition written by his father. According to petition father believes that patient thinks that people are going to kill him, he is having auditory hallucinations, drinking and using drugs. Patient urine drug screen is positive for amphetamines, methamphetamine, cocaine, THC. Patient was seen today by get [facility], he appeared to have poor hygiene and grooming. Unkempt appearance. He claims that he is homeless, he was fairly irritable with insurance underwriter sales, did not want to talk much to insurance underwriter sales and turned away and covered his head with the sheets. He claims that "my parents twisted my words" when asked how he got to the hospital. He answered I don't know for several questions. He is denying any drug use however his urine drug was positive for several different substances. He is denying any withdrawal symptoms at this time over states that he wants to take Ativan due to drinking about 4 or call boys of beer and 2 pints of liquor regularly. He denie s any history of severe withdrawal symptoms. He claims that he is having anxiety and also problems with his mood. At this time he is denying any delusions or paranoia. He appeared to have poor decision making skills, poor insight and judgment. Patient denies any suicidal or homicidal ideations intent or plan. At this time patient denies any auditory or visual hallucinations. PAST PSYCHIATRIC HISTORY: Patient states that he has history of polysubstance abuse and mood disorder. Patient denies being on any psychiatric medications. Patient denies any previous psychiatric hospitalizations. Patient used to follow-up at [facility] with Dr. Little however the last follow-up with his in August 2022. His chart was closed in October 2022. Patient denies any history of suicide attempts in the past. PMH:Past Medical History: Hypertension Additional Past Medical History / Comment(s): IVDA History of Any Multi-Drug Resistant Organisms: None Reported Past Surgical History: No Surgical Hx Reported Past Anesthesia/Blood Transfusion Reactions: Unable to Obtain Past Psychological History: ADD/ADHD, Anxiety, Bipolar, Depression, PTSD Smoking Status: Current every day smoker Past Alcohol Use History: Abuse, Daily, Heavy Past Drug Use History: Heroin, IV Drug Use, Methamphetamine, Opiates ALLERGIES: as per EMR CHEMICAL DEPENDENCY HISTORY: as per HPI FAMILY PSYCHIATRIC/SUBSTANCE USE HISTORY: denies SOCIAL HISTORY: Patient was born and raised in this area of [place], he was fairly vague about his living arrangements however does states that he "sleeps on the streets". He refused to give any other information about his social history. MENTAL STATUS EXAM: General Appearance: Patient appears to be unkempt appearance, disheveled, stated age is alert, difficult to engage with, concrete. Patient appears to have poor hygiene and grooming. Behavior: Patient is seated without any agitated behavior. Evasive. Guarded. Speech: Patient's speech is fluent and nonpressured. [place]. Mood/Affect: Patient reports their mood is depressed and anxious, affect is congruent and constricted. Suicidality/Homicidality: Patient denies having any homicidal ideation intent or plan. Denies any suicidal ideations intent or plan Perceptions: Patient denies any visual hallucinations and denies any auditory hallucinations Though content/process: [place], poverty of content. Memory and concentration: AOX3, grossly intact for the purposes of this session. Judgment and insight: poor/impulsive STRENGTHS/WEAKNESSES: strength is that patient is resilient. Weakness is that patient has poor judgment and is impulsive INTELLECT: average IMPRESSIONS: Depressive disorder unspecified, rule out secondary to polysubstance abuse Cocaine use disorder Methamphetamine use disorder Cannabis use disorder Nicotine dependence Homelessness PLAN: -Patient is admitted under involuntary status to MHU for stabilization of psychiatric symptoms and safety. Patient has not signed adult voluntary form and medication consent and is placed in patient's chart. A second certification was completed and along with petition will be filed for court. -Medications : Zoloft 50 mg daily for mood/anxiety. Trazodone 100 mg daily at bedtime when necessary for insomnia. We'll consider replacing with antipsychotic either Zyprexa versus Seroquel tomorrow if needed. Librium 3 times a day scheduled for alcohol withdrawal symptoms. -Ativan and Haldol PRN for agitation/aggression -CIWA protocol with Ativan PRN for ETOH withdrawal -Patient was informed of the risks, benefits and side effects of the medication and patient verbally consented to taking the medications. Patient signed med consent form and was placed in chart. -Internal Medicine consult to perform medical evaluation and physical. -NRT - nicotine patch -SW on board for discharge planning. Encourage patient to participate in groups to work on coping skills. Will await deferral and court date.
--- NOTE | 2023-03-06 15:40 | P.PN ---
Progress Note - Text Progress Note Date: 03/06/23 Attempted to see the patient. He is currently too agitated to be examined per nurse.
[2023-03-06] MEDS: NICOTINE GUM (POLACRILEX) 2 MG GUM BUCCAL PRN (16:20)
[2023-03-07] MEDS: SERTRALINE 50 MG TAB PO SCH (08:32)
[2023-03-07] MEDS: haloperidoL 5 MG TAB PO PRN (09:49)
[2023-03-07] MEDS: LORazepam 1 MG TAB PO PRN ×2 (09:49→15:56)
[2023-03-07] MEDS ORDERED: OLANZapine 5 MG TAB PO ONE (11:57)
--- NOTE | 2023-03-07 12:06 | P.PN ---
Progress Note - Text Progress Note Date: 03/07/23 Interval history: Patient was seen wandering the hallways and was agreeable to speak to typewriter tester. Patient appeared to be somewhat agitated and anxious. He demanded to speak to the doctor and was somewhat intrusive and pacing around the hallways. He was fairly focused on his parents lying about his condition and believes that he does not need mental health treatment. He claims that he does not understand why he is involuntarily admitted and wants to be released. He claims that he is losing out on work and also his truck might be taken away from him. He claims that he is feeling anxious at this time, endorses depression. He states that he is struggling significantly with methamphetamine abuse. He states that currently he is homeless and wants to return back to the streets, he does not trust his parents. He spoke about "talking to some guys" and trying to resolve issues however did not share much clarity on this. At this time is denying any auditory or visual hallucinations. Denying any suicidal or homicidal ideations intent or plan. Patient appeared to have low impulse control. Poor hygiene and grooming. Claims that he is not sleeping well at nighttime. Mental status examination: General Appearance: Patient appears to be unkempt appearance, disheveled, poor hygiene and grooming. He is wandering the hallways, appears to be agitated and anxious. Behavior: Patient is looking in the hallway, agitated behavior. Evasive. Intrusive Speech: Patient's speech is fluent and nonpressured. Demanding. Irritable. Mood/Affect: Patient reports their mood is depressed and anxious, affect is congruent Suicidality/Homicidality: Patient denies having any homicidal ideation intent or plan. Denies any suicidal ideations intent or plan Perceptions: Patient denies any visual hallucinations and denies any auditory hallucinations Though content/process: is rambling, endorsing paranoia towards his parent. Minimizing his need for hospitalization. Memory and concentration: AOX3, grossly intact for the purposes of this session. Judgment and insight: poor/impulsive IMPRESSIONS: Depressive disorder unspecified, rule out secondary to polysubstance abuse Cocaine use disorder Methamphetamine use disorder Cannabis use disorder Nicotine dependence Homelessness PLAN: -Patient is admitted under involuntary status to MHU for stabilization of psychiatric symptoms and safety. Patient has not signed adult voluntary form and medication consent and is placed in patient's chart. -Medications : continue Zoloft 50 mg daily for mood/anxiety. Trazodone 100 mg daily at bedtime when necessary for insomnia. Librium 3 times a day scheduled for alcohol withdrawal symptoms. added zyprexa 5 mg once now for agitation and 10 mg qhs scheduled for mood stabilization/paranoia/sleep. -Ativan and Haldol PRN for agitation/aggression -CIWA protocol with Ativan PRN for ETOH withdrawal -NRT - nicotine patch -SW on board for discharge planning. Encourage patient to participate in groups to work on coping skills. Will await deferral and court date.
[2023-03-07] MEDS ORDERED: PALIPERIDONE 3 MG TAB.ER.24 PO SCH (21:00)
[2023-03-07] MEDS ORDERED: OLANZapine 10 MG TAB PO SCH (21:00)
[2023-03-08] MEDS: NICOTINE GUM (POLACRILEX) 2 MG GUM BUCCAL PRN ×3 (07:30→18:44)
[2023-03-08] MEDS: SERTRALINE 50 MG TAB PO SCH (08:32)
[2023-03-08] MEDS: LORazepam 1 MG TAB PO PRN ×2 (11:15→16:39)
--- NOTE | 2023-03-08 11:20 | P.PN ---
Progress Note - Text Progress Note Date: 03/08/23 Interval history: Patient was seen wandering the hallways and was agreeable to speak to account underwriter alicia davalos. Patient appears to be less agitated and anxious today. He continues to focus on discharge. He has been taking his medications as prescribed. He claims that the withdrawal symptoms have been improving. He continues to be somewhat impulsive and trying to negotiate discharge. He asked several questions about the court process once again and to speak to his health care attorney. He was agreeable to stay over the weekend to have his medications adjusted. He claims that he does not like going to groups and that does not appeal to him. He states that he is eating fairly well. Claims that he slept last night. At this time is denying any auditory or visual hallucinations. Denying any suicidal or homicidal ideations intent or plan. Patient appeared to have low impulse control, improving mildly. Improving hygiene and grooming. Mental status examination: General Appearance: Patient appears to be improving appearance, disheveled. He is wandering the hallways, appears to be less agitated and anxious. Behavior: Patient is in the hallway, less agitated behavior. I'll be more cooperative today. Speech: Patient's speech is fluent and nonpressured. less Irritable. Mood/Affect: Patient reports their mood is improving mildly, affect is congruent Suicidality/Homicidality: Patient denies having any homicidal ideation intent or plan. Denies any suicidal ideations intent or plan Perceptions: Patient denies any visual hallucinations and denies any auditory hallucinations Though content/process: rambling, not endorsing paranoia. Minimizing his need for hospitalization. Focused on discharge Memory and concentration: AOX3, grossly intact for the purposes of this session. Judgment and insight: poor/impulsive, improving mildly IMPRESSIONS: Depressive disorder unspecified, rule out secondary to polysubstance abuse Cocaine use disorder Methamphetamine use disorder Cannabis use disorder Nicotine dependence Homelessness PLAN: -Patient is admitted under involuntary status to [facility] for stabilization of psychiatric symptoms and safety. Patient has not signed adult voluntary form and medication consent and is placed in patient's chart. -Medications : increase Zoloft 100 mg daily for mood/anxiety. Trazodone 100 mg daily at bedtime when necessary for insomnia. decrease Librium 10 mg 3 times a day scheduled for alcohol withdrawal symptoms, continue decreasing over the weekend. invega 6mg qhs for mood stabilization/paranoia/sleep. -Ativan and Haldol PRN for agitation/aggression -CIWA protocol with Ativan PRN for ETOH withdrawal -NRT - nicotine patch -SW on board for discharge planning. Encourage patient to participate in groups to work on coping skills. Will await deferral and court date. possible discharge saturday if patient is improving. patient is homeless, will need [facility] referral.
[2023-03-08] MEDS ORDERED: PALIPERIDONE 6 MG TAB.ER.24 PO SCH (21:00)
[2023-03-09] MEDS ORDERED: SERTRALINE 100 MG TAB PO SCH (09:00)
[2023-03-09] MEDS ORDERED: traZODone HCL 50 MG TAB PO PRN (10:58)
--- NOTE | 2023-03-09 11:01 | P.PN ---
Progress Note - Text Progress Note Date: 03/09/23 Interval history: Patient was seen lying in bed today and was directable and agreeable to speak with com writer. Patient claims that she feels very tired this morning. He claimed that he usually does not feel this tired and requested to have his medications decreased. He has been taking his medications as prescribed. He states that he feels lethargic. He reports an improvement in his mood and anxiety. He continues to focus on discharge. He states that he is not interested in going to groups or rehab. He states that his appetite is fair at this time. At this time patient denies any suicidal or homicidal ideations intent or plan. Denies any Auditory or visual hallucinations. Patient denies any side effects from the medications and has been compliant with meds. Claims that the sleeping medication did not sit well with him last night he was referring to trazodone. Mental status exam: General Appearance: Patient appears to be unshaven, stated age is alert, directable, and cooperative. Appears to be lethargic. Behavior: No agitated behavior. Patient is calm and directable Speech: Patient's speech is fluent and nonpressured. [place] Mood/Affect: Mood is improving mildly, affect is congruent and constricted. Suicidality/Homicidality: Patient denies having any suicidal or homicidal ideation intent or plan. Perceptions: Patient denies any auditory or visual hallucinations. Though content/process: There is no evidence of any delusional thought content and thought process is linear and goal-directed. Focused on his medications and also discharge. Memory and concentration: AOX3, grossly intact for the purposes of this session Judgment and insight: improving mildly Assessment/Plan: Continue with current diagnosis. Patient continues to meet criteria for inpatient psychiatric admission for symptom stabilization and safety.Patient will be maintained on current psychotropic medication regimen, with the exception of discontinuing trazodone due to poor tolerance, change Zoloft to daily at bedtime dosing. Also discontinued scheduled Librium. Monitor for medication compliance and for any psychotropic medication side effects. Will continue to monitor ongoing response to treatment. Encouraged participation in milieu.
[2023-03-09] MEDS: haloperidoL 5 MG TAB PO PRN (11:21)
[2023-03-09] MEDS: LORazepam 1 MG TAB PO PRN (11:21)
[2023-03-09] MEDS: NICOTINE GUM (POLACRILEX) 2 MG GUM BUCCAL PRN ×2 (11:55→16:55)
[2023-03-09] MEDS: PALIPERIDONE 6 MG TAB.ER.24 PO SCH (20:15)
[2023-03-09] MEDS: SERTRALINE 100 MG TAB PO SCH (20:15)
[2023-03-09] MEDS ORDERED: PALIPERIDONE 3 MG TAB.ER.24 PO SCH (21:00)
[2023-03-10] MEDS: NICOTINE GUM (POLACRILEX) 2 MG GUM BUCCAL PRN ×3 (08:03→17:44)
[2023-03-10 09:21] LABS: Glucose,Whole Blood 123 mg/dL (70-110)
[2023-03-10] MEDS: MAGNESIUM HYDROXIDE 2,400 MG/30 ML CUP PO PRN (09:29)
[2023-03-10] MEDS: IBUPROFEN 600 MG TAB PO PRN (09:30)
[2023-03-10 09:40] VITALS: RESP 18
--- NOTE | 2023-03-10 10:54 | P.PN ---
Progress Note - Text Progress Note Date: 03/10/23 Interval history: Patient was seen wandering the hallways this morning. He states that he did not get enough rest last night and wanted to be restarted back on a lower dose of the trazodone. He states that he has been feeling a bit better in terms of his mood and anxiety, he appears to be less irritable today with script writer more directable. He asked to be placed on naltrexone for his alcohol cravings. He reports an improvement in his mood and anxiety. He continues to focus on discharge. He states that he is not interested in going to groups or rehab. He states that his appetite is fair at this time. At this time patient denies any suicidal or homicidal ideations intent or plan. Denies any Auditory or visual hallucinations. Patient denies any side effects from the medications and has been compliant with meds. Mental status exam: General Appearance: Patient appears to be unshaven, stated age is alert, directable, and cooperative. Appears to be more awake and cooperative. Behavior: No agitated behavior. Patient is calm and directable Speech: Patient's speech is fluent and nonpressured. Mood/Affect: Mood is improving mildly, affect is congruent and constricted. Suicidality/Homicidality: Patient denies having any suicidal or homicidal ideation intent or plan. Perceptions: Patient denies any auditory or visual hallucinations. Though content/process: There is no evidence of any delusional thought content and thought process is linear and goal-directed. Focused on his medications and also discharge. Memory and concentration: AOX3, grossly intact for the purposes of this session Judgment and insight: improving mildly Assessment/Plan: Continue with current diagnosis. Patient continues to meet criteria for inpatient psychiatric admission for symptom stabilization and safety.Patient will be maintained on current psychotropic medication regimen, with the exception of restarting trazodone 50 mg qhs for sleep, naltrexone 50 mg daily for etoh cravings, patient is agreeable to receive the vivitrol injection tomorrow if tolerating med well. Monitor for medication compliance and for any psychotropic medication side effects. Will continue to monitor ongoing response to treatment. Encouraged participation in milieu. likely discharge tomorrow, he is refusing rehab
[2023-03-10] MEDS: NALTREXONE HCL 50 MG TAB PO SCH (11:18)
[2023-03-10] MEDS: LORazepam 1 MG TAB PO PRN ×2 (12:59→20:30)
[2023-03-10] MEDS: haloperidoL 5 MG TAB PO PRN (17:44)
[2023-03-10] MEDS: SERTRALINE 100 MG TAB PO SCH (20:28)
[2023-03-10] MEDS: PALIPERIDONE 6 MG TAB.ER.24 PO SCH (20:28)
[2023-03-10] MEDS ORDERED: traZODone HCL 50 MG TAB PO SCH (21:00)
[2023-03-11] MEDS: IBUPROFEN 600 MG TAB PO PRN (05:24)
[2023-03-11 07:11] VITALS: BP 151/94; PULSE 89; TEMP 98.4
[2023-03-11] MEDS: NALTREXONE HCL 50 MG TAB PO SCH (09:22)
[2023-03-11] MEDS: ACETAMINOPHEN TAB 325 MG TAB PO PRN ×2 (09:22→12:52)
[2023-03-11] MEDS: NICOTINE GUM (POLACRILEX) 2 MG GUM BUCCAL PRN ×2 (09:50→11:52)
[2023-03-11] MEDS ORDERED: ONDANSETRON 4 MG TAB PO STA (09:55)
--- NOTE | 2023-03-11 10:32 | P.DS ---
Providers Date of admission: 03/05/23 21:02 Expected date of discharge: 03/11/23 Attending physician: Lorenzo Hoskins MD Consults: 03/05/23 22:54 Consult Physician Routine Consulting Provider: Monae Physician Consult Reason/Comments: H&P and medical Do you want consulting provider notified?: Yes Primary care physician: Stated None - Discharge Diagnosis(es) (1) Depressive disorder Current Visit: Yes Status: Acute Priority: High (2) Cocaine use disorder Current Visit: Yes Status: Acute Priority: High (3) Methamphetamine use disorder, moderate Current Visit: Yes Status: Acute Priority: High (4) Cannabis use disorder Current Visit: Yes Status: Acute Priority: Medium (5) Nicotine dependence Current Visit: Yes Status: Acute Priority: Low (6) Homelessness Current Visit: Yes Status: Acute Priority: Low (7) Alcohol abuse Current Visit: Yes Status: Acute Priority: High Hospital Course: Admission HPI: Admission note was completed by group underwriter "Patient is a 38-year-old male who is currently homeless, unemployed. Patient presented to the hospital yesterday on petition written by his father. According to petition father believes that patient thinks that people are going to kill him, he is having auditory hallucinations, drinking and using drugs. Patient urine drug screen i s positive for amphetamines, methamphetamine, cocaine, THC. Patient was seen today by salomón wheat, he appeared to have poor hygiene and grooming. Unkempt appearance. He claims that he is homeless, he was fairly irritable with group underwriter, did not want to talk much to group underwriter and turned away and covered his head with the sheets. He claims that "my parents twisted my words" when asked how he got to the hospital. He answered I don't know for several questions. He is denying any drug use however his urine drug was positive for several different substances. He is denying any withdrawal symptoms at this time over states that he wants to take Ativan due to drinking about 4 or call boys of beer and 2 pints of liquor regularly. He denies any history of severe withdrawal symptoms. He claims that he is having anxiety and also problems with his mood. At this time he is denying any delusions or paranoia. He appeared to have poor decision making skills, poor insight and judgment. Patient denies any suicidal or homicidal ideations intent or plan. At this time patient denies any auditory or visual hallucinations." Hospital course: Upon admission to the unit patient was admitted involuntarily on a petition and certificate and a second certificate was completed and faxed with the courts. Patient will be meeting with his lumber sorter machine today prior to d/c to sign deferral. Patient got along well with other patients on the unit and followed unit protocol. Patient was compliant with the medications and denied any side effects throughout hospital course. Patient was started on paliperidone by sangita th increased to a dose of 6 mg daily at bedtime for mood stabilization/psychosis, Zoloft 100 mg daily for mood/anxiety, trazodone was started however discontinued due to intolerance. Patient claimed that he had good repsonse to naltrexone in the past and was restaretd on it. Patient was also placed on librium and ativan prn for etoh withdrawal. Patient spoke of his stressors and engaged in therapy both group and individual. Patient was also seen by medical team for history and physical exam. Throughout the course of the hospitalization patient gradually improved with regards to mood, anxiety, suicidal thoughts, sleep and returned back to their baseline level of functioning. On the day of discharge patient denied any suicidal or homicidal ideations intent or plan denied any auditory or visual hallucinations. Patient endorsed wanting to live for his health and his work/job. The patient denied any access to guns or weapons. Patient denied any paranoia and did not endorse any delusions. Patient does have a significant history of substance abuse and was counseled on abstaining from all substances including alcohol and marijuana. Patient was offered inpatient substance rehab however initially declined it but now is interested in calling access line for intake date after discharge. Patient was also counseled on the medications and need for regular compliance and was encouraged to follow-up with their outpatient appointment for mental health and also for primary care. Patiet will be given long term referral aswell upon discharge today Mental status exam: General Appearance: Patient appears to be thin, stated age is alert, pleasant, and cooperative. Patient is in no acute distress and has improved hygiene and grooming Behavior: Patient is calmly seated without any agitated behavior. Speech: Patient's speech is fluent and nonpressured. Mood/Affect: Patient reports their mood is "alright", affect is congruent and euthymic. Suicidality/Homicidality: Patient denies having any suicidal or homicidal ideation intent or plan. Perceptions: Patient denies any auditory or visual hallucinations. Though content/process: There is no evidence of any delusional thought content and thought process is linear and goal-directed. more future oriented Memory and concentration: AOX3, grossly intact for the purposes of this session. Can spell "WORLD" backwards correctly. Judgment and insight: chronically poor, however has improved with guarded prognosis Impression: Depressive disorder unspecified Cocaine use disorder Methamphetamine use disorder moderate Cannabis use disorder alcohol abuse Homelessness Nicotine dependence Plan: -Continue with discharge today as patient has improved and stabilized psychiatrically and is not currently an imminent threat to himself and/or others. Patient will remain at chronically elevated risk for harm to self and/or others due to his polysubstance abuse. -Continue medications: Paliperidone by mouth milligrams daily at bedtime for mood stabilization, Benadryl 50 mg daily at bedtime when necessary for insomnia, Zoloft 100 mg daily for mood/anxiety, by mouth 50 mg daily for alcohol cravings. -Patient was counseled on the need for medication compliance and appropriate follow-up at mental health and also primary care for medical issues. Patient verbalized understanding and agreed. -Social work to help when a patient discharged today and referral for long term. Patient will also be given the resources and information for access line for rehab. Social work also to arrange for patients follow up appointments with [facility] for psychiatric care along with follow up with primary care provider. -Patient counseled on abstaining from recreational drugs and marijuana and alcohol. Was informed/educated on the adverse effects on their physical and mental health. Patient verbally agreed and understood. -Patient was instructed to return to the hospital or seek immediate medical care if their psychiatric or medical symptoms do worsen or reoccur. Allergies Allergy/AdvReac Type Severity Reaction Status Date / Time venom-honey bee Allergy Anaphylaxis Verified 03/04/23 11:01 [bee venom (honey bee)] Laboratory Results WBC 9.1 k/uL (3.8-10.6) 03/04/23 02:18 RBC 4.53 m/uL (4.30-5.90) 03/04/23 02:18 Hgb 15.5 gm/dL (13.0-17.5) 03/04/23 02:18 Hct 45.2 % (39.0-53.0) 03/04/23 02:18 MCV 99.9 fL (80.0-100.0) 03/04/23 02:18 MCH 34.2 pg (25.0-35.0) 03/04/23 02:18 MCHC 34.3 g/dL (31.0-37.0) 03/04/23 02:18 RDW 12.3 % (11.5-15.5) 03/04/23 02:18 Plt Count 378 k/uL (150-450) 03/04/23 02:18 MPV 6.6 03/04/23 02:18 Neutrophils % 59 % 03/04/23 02:18 Lymphocytes % 31 % 03/04/23 02:18 Monocytes % 6 % 03/04/23 02:18 Eosinophils % 1 % 03/04/23 02:18 Basophils % 0 % 03/04/23 02:18 Neutrophils # 5.4 k/uL (1.3-7.7) 03/04/23 02:18 Lymphocytes # 2.8 k/uL (1.0-4.8) 03/04/23 02:18 Monocytes # 0.6 k/uL (0-1.0) 03/04/23 02:18 Eosinophils # 0.1 k/uL (0-0.7) 03/04/23 02:18 Basophils # 0.0 k/uL (0-0.2) 03/04/23 02:18 POC Glucose (mg/dL) 123 mg/dL (70-110) H 03/10/23 09:19 POC Glu Program Director/Air Personality MARLA Steele Nati 03/10/23 09:19 Urine Color Colorless 03/04/23 02:18 Urine Appearance Clear (Clear) 03/04/23 02:18 Urine pH 6.5 (5.0-8.0) 03/04/23 02:18 Ur Specific [place] 1.009 (1.001-1.035) 03/04/23 02:18 Urine Protein Negative (Negative) 03/04/23 02:18 Urine Glucose (UA) Negative (Negative) 03/04/23 02:18 Urine Ketones Trace (Negative) H 03/04/23 02:18 Urine Blood Negative (Negative) 03/04/23 02:18 Urine Nitrite Negative (Negative) 03/04/23 02:18 Urine Bilirubin Negative (Negative) 03/04/23 02:18 Urine Urobilinogen <2.0 mg/dL (<2.0) 03/04/23 02:18 Ur Leukocyte Esterase Negative (Negative) 03/04/23 02:18 Urine Opiates Screen Not Detected (NotDetected) 03/04/23 02:18 Ur Oxycodone Screen Not Detected (NotDetected) 03/04/23 02:18 Urine Methadone Screen Not Detected (NotDetected) 03/04/23 02:18 Ur Propoxyphene Screen Not Detected (NotDetected) 03/04/23 02:18 Ur Barbiturates Screen Not Detected (NotDetected) 03/04/23 02:18 U Tricyclic Antidepress Not Detected (NotDetected) 03/04/23 02:18 Ur Phencyclidine Scrn Not Detected (NotDetected) 03/04/23 02:18 Ur Amphetamines Screen Detected (NotDetected) H 03/04/23 02:18 U Methamphetamines Scrn Detected (NotDetected) H 03/04/23 02:18 U Benzodiazepines Scrn Not Detected (NotDetected) 03/04/23 02:18 Urine Cocaine Screen Detected (NotDetected) H 03/04/23 02:18 U Marijuana (THC) Screen Detected (NotDetected) H 03/04/23 02:18 Serum Alcohol <10 mg/dL 03/04/23 02:18 Influenza Type A (PCR) Not Detected (Not Detectd) 03/05/23 06:03 Influenza Type B (PCR) Not Detected (Not Detectd) 03/05/23 06:03 RSV (PCR) Not Detected (Not Detectd) 03/05/23 06:03 SARS-CoV-2 (PCR) Not Detected (Not Detectd) 03/05/23 06:03 Vital Signs Temp 98.4 F 03/11/23 03:30 Pulse 89 03/11/23 03:30 Resp 18 03/11/23 03:30 BP 151/94 03/11/23 03:30 Pulse Ox 99 03/11/23 03:30 FiO2 Patient Condition at Discharge: Stable Plan - Discharge Summary New Discharge Prescriptions: New Paliperidone [Invega] 6 mg PO HS 30 Days #30 tab Nicotine Gum (Polacrilex) [Nicorette] 2 mg BUCCAL Q4HR PRN 30 Days #180 pieceofgum PRN Reason: Nicotine Cravings Naltrexone HCl [Revia] 50 mg PO DAILY 30 Days #30 tab diphenhydrAMINE [Benadryl] 50 mg PO HS PRN 30 Days #30 capsule PRN Reason: Insomnia Sertraline [Zoloft] 100 mg PO HS 30 Days #30 tab Discharge Medication List Naltrexone HCl [Revia] 50 mg PO DAILY 30 Days #30 tab 03/11/23 [Rx] Nicotine Gum (Polacrilex) [Nicorette] 2 mg BUCCAL Q4HR PRN 30 Days #180 pieceofgum 03/11/23 [Rx] Paliperidone [Invega] 6 mg PO HS 30 Days #30 tab 03/11/23 [Rx] Sertraline [Zoloft] 100 mg PO HS 30 Days #30 tab 03/11/23 [Rx] diphenhydrAMINE [Benadryl] 50 mg PO HS PRN 30 Days #30 capsule 03/11/23 [Rx] Follow up Appointment(s)/Referral(s): None,Stated [Primary Care Provider] - 1-2 days Activity/Diet/Wound Care/Special Instructions: Avoid the use of street drugs and alcohol. Take all medications as prescribed. When you are in need of refills on your medications, please contact your medical provider and/or outpatient psychiatrist/provider to have this done. Please go to your scheduled outpatient appointment for aftercare treatment. If symptoms return or become worse, call the crisis line at and/or go to the nearest emergency room for evaluation. National Suicide Hotline 988. Discharge Disposition: OTHER INSTITUTION NOT DEFINED
[2023-03-11] MEDS: LORazepam 1 MG TAB PO PRN (11:54)
[2023-03-11] MEDS: haloperidoL 5 MG TAB PO PRN (11:54)
[2023-03-11] MEDS: MAGNESIUM HYDROXIDE 2,400 MG/30 ML CUP PO PRN (12:53)
== END 2023-03-11 14:10 | disposition home or self-care (01) | DRG 754 ==
LOC: EC 19:52 → 3MHU 03-05 21:02
PROVIDERS: ADMIT Psychiatry & Neurology Psychiatry; ATTEND Psychiatry & Neurology Psychiatry
DX: F32.A Depression, unspecified (principal); F14.90 Cocaine use, unspecified, uncomplicated; F15.90 Other stimulant use, unspecified, uncomplicated; F12.90 Cannabis use, unspecified, uncomplicated; F17.200 Nicotine dependence, unspecified, uncomplicated; F31.9 Bipolar disorder, unspecified; F43.10 Post-traumatic stress disorder, unspecified; F90.9 Attention-deficit hyperactivity disorder, unspecified type; G47.00 Insomnia, unspecified; R45.851 Suicidal ideations; Z56.0 Unemployment, unspecified; Z59.00 Homelessness unspecified; Z79.899 Other long term (current) drug therapy; Z11.52 Encounter for screening for COVID-19
CPT/HCPCS: 36415; 80306; 80320; 81003; 82075; 85025; 87636; 96372; 96374; 96376; 99285

== ENCOUNTER 2023-07-17 12:39 | Emergency (ER) | payer OTHER ==
[2023-07-17 13:02] LABS: Basophils % (A) 0 %; Eosinophils # (A) 0.2 k/uL (0-0.7); Eosinophils % (A) 1 %; HCT 46.1 % (39.0-53.0); HGB 15.2 gm/dL (13.0-17.5); Lymphocytes # (A) 1.9 k/uL (1.0-4.8); Lymphocytes % (A) 14 %; MCH 33.2 pg (25.0-35.0); MCV 100.7 fL (80.0-100.0); Monocytes # (A) 0.5 k/uL (0-1.0); Monocytes % (A) 4 %; Neutrophils # (A) 10.5 k/uL (1.3-7.7); Neutrophils % (A) 79 %; Platelet Count 525 k/uL (150-450); RBC 4.58 m/uL (4.30-5.90); RDW 13.3 % (11.5-15.5); WBC 13.3 k/uL (3.8-10.6)
[2023-07-17 13:10] LABS: ALT 32 U/L (4-49); AST 39 U/L (17-59); African American GFR (CKD) >90 (>60 ml/min/1.73 sqM); Albumin 4.2 g/dL (3.5-5.0); Alkaline Phosphatase 46 U/L (38-126); Anion Gap 9 mmol/L; Blood Urea Nitrogen 7 mg/dL (9-20); Calcium 8.8 mg/dL (8.4-10.2); Carbon Dioxide 26 mmol/L (22-30); Chloride 102 mmol/L (98-107); Glucose 97 mg/dL (74-99); Non-African American GFR(CKD) >90 (>60 ml/min/1.73 sqM); Partial Thromboplastin Time 25.1 sec (22.0-30.0); Potassium 4.1 mmol/L (3.5-5.1); Prothrombin Time 10.6 sec (10.0-12.5); Sodium 137 mmol/L (137-145); Total Bilirubin 0.7 mg/dL (0.2-1.3); Total Protein 6.6 g/dL (6.3-8.2)
[2023-07-17 13:14] VITALS: RESP 18; TEMP 98.7
--- NOTE | 2023-07-17 13:28 | ED ---
Chest Pain HPI - General Source: patient, RN notes reviewed Mode of arrival: ambulatory Limitations: no limitations <Reggie Abraham - Last Filed: 07/17/23 13:26> - General Source: RN notes reviewed, old records reviewed Mode of arrival: ambulatory Limitations: no limitations - History of Present Illness MD Complaint: chest pain -: hour(s) Onset: during exertion Pain Location: substernal, left chest Pain Radiation: back Severity: moderate Severity scale (1-10): 6 Quality: aching, heaviness, sharp Consistency: constant Improves With: nothing, eating Anginal Symptoms: diaphoresis, dyspnea Treatments Prior to Arrival: none <Nas Pedraza - Last Filed: 07/27/23 20:35> - General Chief Complaint: Chest Pain Stated Complaint: Chest Pain 170/124 Time Seen by Provider: 07/17/23 12:47 - History of Present Illness Initial Comments: 38-year-old male presents emergency department with chief complaint of epigastric discomfort. Patient states that this started after intercourse. Patient states he has a prior history of reflux. States pain has improved some. He does admit to increasing nasal congestion, cough and cold-like symptoms. Patient denies any lower abdominal pain no dysuria no other complaints. (Reggie Abraham) This is a 38-year-old male presents for evaluation of chest pain severe abdominal pain chest pain pain to his back which has improved some but does persist. Patient's pain initially occurred during intercourse and he has had this pain before with severely uncontrolled blood pressure. Patient states he supposed be on blood pressure medication which he does not take (Nas Pedraza) - Related Data Home Medications Medication Instructions Recorded Confirmed Ammonium Lactate Cream [Lac-Hydrin 1 applic TOPICAL BID 07/17/23 07/17/23 12% Cream] Doxycycline Hyclate 100 mg PO BID 07/17/23 07/17/23 Previous Rx's Medication Instructions Recorded lisinopriL [Prinivil] 10 mg PO DAILY #60 tab 07/18/23 Allergies Allergy/AdvReac Type Severity Reaction Status Date / Time venom-honey bee Allergy Anaphylaxis Verified 07/17/23 17:02 [bee venom (honey bee)] Review of Systems ROS Other: All systems not noted in ROS Statement are negative. <Reggie Abraham - Last Filed: 02/28/24 13:26> ROS Other: All systems not noted in ROS Statement are negative. <AprilsebasSinmarion Woo - Last Filed: 07/27/23 20:35> ROS Statement: Those systems with pertinent positive or pertinent negative responses have been documented in the HPI. EKG Findings - EKG Comments: EKG Findings:: EKG is sinus 73 MA 168 QRS 114 QTc 404 - EKG Results: EKG: interpreted by ERMD <KeilaNas B - Last Filed: 07/27/23 20:35> Past Medical History Past Medical History: Hypertension Additional Past Medical History / Comment(s): IVDA History of Any Multi-Drug Resistant Organisms: None Reported Past Surgical History: No Surgical Hx Reported Past Anesthesia/Blood Transfusion Reactions: Unable to Obtain Past Psychological History: ADD/ADHD, Anxiety, Bipolar, Depression, PTSD Smoking Status: Current every day smoker Past Alcohol Use History: Abuse, Daily, Heavy Past Drug Use History: Heroin, IV Drug Use, Methamphetamine, Opiates <Reggie Abraham M - Last Filed: 07/17/23 13:26> General Exam Limitations: no limitations <Reggie Abraham M - Last Filed: 07/17/23 13:26> General appearance: alert, in no apparent distress, anxious Head exam: Present: atraumatic, normocephalic, normal inspection Eye exam: Present: normal appearance, PERRL, EOMI. Absent: scleral icterus, conjunctival injection, periorbital swelling ENT exam: Present: normal exam, mucous membranes moist Neck exam: Present: normal inspection. Absent: tenderness, meningismus, lymphadenopathy Respiratory exam: Present: normal lung sounds bilaterally. Absent: respiratory distress, wheezes, rales, rhonchi, stridor Cardiovascular Exam: Present: regular rate, normal rhythm, normal heart sounds. Absent: systolic murmur, diastolic murmur, rubs, gallop, clicks GI/Abdominal exam: Present: soft, normal bowel sounds. Absent: distended, tenderness, guarding, rebound, rigid Extremities exam: Present: normal inspection, full ROM, normal capillary refill. Absent: tenderness, pedal edema, joint swelling, calf tenderness Back exam: Present: normal inspection Neurological exam: Present: alert, oriented X3, CN II-XII intact Psychiatric exam: Present: normal affect, normal mood Skin exam: Present: warm, dry, intact, normal color. Absent: rash <Nas Pedraza - Last Filed: 07/27/23 20:35> - General Exam Comments Initial Comments: Visual Physical Exam Vital signs reviewed General: Well-appearing, nontoxic, no acute distress. Head: Normocephalic, atraumatic Eyes: PERRLA, EOMI ENT: Airway patent Chest: Nonlabored breathing Skin: No visual rash, normal skin tone Neuro: Alert and oriented 3 Musculoskeletal: No gross abnormalities (Reggie Abraham) Course <KeilaNas Woo - Last Filed: 07/27/23 20:35> Vital Signs 07/17/23 07/17/23 07/17/23 12:41 15:47 17:15 Temperature 98.7 F Pulse Rate 92 96 Respiratory 18 18 Rate Blood Pressure 187/114 192/114 178/103 O2 Sat by Pulse 98 98 Oximetry 07/17/23 18:09 Temperature Pulse Rate 78 Respiratory 18 Rate Blood Pressure 157/109 O2 Sat by Pulse 98 Oximetry - Reevaluation(s) Reevaluation #1: Medical records reviewed (Nas Pedraza) Reevaluation #2: Patient symptoms unchanged (Nas Pedraza) Reevaluation #3: Patient informed of results questions answered Studies Chest x-ray and CT chest are negative for acute disease (Nas Pedraza) Reevaluation #4: Was pt. sent in by a medical professional or institution (, PA, CONVERSION DEVELOPER, urgent care, hospital, or [facility]...) When possible be specific @ -no Did you speak to anyone other than the patient for history (EMS, parent, family, police, friend...)? What history was obtained from this source @ -no Did you review nursing and triage notes (agree or disagree)? Why? @ -agree Are old charts reviewed (outside hosp., previous admission, EMS record, old EKG, old radiological studies, urgent care reports/EKG's, [facility] records)? Report findings @ -yes Differential Diagnosis (chest pain, altered mental status, abdominal pain women, abdominal pain men, vaginal bleeding, weakness, fever, dyspnea, syncope, headache, dizziness, GI bleed, back pain, seizure, CVA, palpatations, mental health, musculoskeletal)? @ -prior EKG interpreted by me (3pts min.). @ -yes X-rays interpreted by me (1pt min.). @ -yes negative for acute disease CT interpreted by me (1pt min.). @ -Yes negative for acute disease U/S interpreted by me (1pt. min.). @ -no What testing was considered but not performed or refused? (CT, X-rays, U/S, labs)? Why? @ -none What meds were considered but not given or refused? Why? @ -none Did you discuss the management of the patient with other professionals (professionals i.e. , PA, CONVERSION DEVELOPER, lab, RT, psych nurse, child welfare social worker, gas pumping station supervisor, teacher, fare enforcement officer, wrapper caser)? Give summary @ -no Was smoking cessation discussed for >3mins.? @ -no Was critical care preformed (if so, how long)? @ -no Were there social determinants of health that impacted care today? How? (Homelessness, low income, unemployed, alcoholism, drug addiction, transportation, low edu. Level, literacy, decrease access to med. care, custodial, rehab)? @ -none Was there de-escalation of care discussed even if they declined (Discuss DNR or withdrawal of care, Hospice)? DNR status @ -no What co-morbidities impacted this encounter? (DM, HTN, Smoking, COPD, CAD, Cancer, CVA, ARF, Chemo, Hep., AIDS, mental health diagnosis, sleep apnea, morbid obesity)? @ -none Was patient admitted / discharged? Hospital course, mention meds given and route, prescriptions, significant lab abnormalities, going to OR and other pertinent info. @ - 38 Male to the ER for evaluation of chest pain with severe elevated blood pressure. Patient has known high blood pressure without treatment patient be started on hypertensive medication and patient can be discharged home Discharge Undiagnosed new problem with uncertain prognosis? @ -no Drug Therapy requiring intensive monitoring for toxicity (Heparin, Nitro, Insulin, Cardizem)? @ -no Were any procedures done? @ -no Diagnosis/symptom? @ -Chest pain Acute, or Chronic, or Acute on Chronic? @ -Acute Uncomplicated (without systemic symptoms) or Complicated (systemic symptoms)? @ -Complicated Side effects of treatment? @ -no Exacerbation, Progression, or Severe Exacerbation? @ -exacerbation Poses a threat to life or bodily function? How? (Chest pain, [place], NH, pneumonia, PE, COPD, DKA, ARF, appy, cholecystitis, CVA, Diverticulitis, Homicidal, Suicidal, threat to staff... and all critical care pts) @ -yes with chest pain (Nas Pedraza) Reevaluation #5: Differential Chest Pain: Stable Angina, Unstable Angina, STEMI, NSTEMI Aortic Dissection, Pneumothorax, Musculoskeletal, Esophageal Spasm GERD, Cholecystitis, Pancreatitis, Zoster, this is not meant to be an all-inclusive list. (Nas Pedraza) Chest Pain MDM <Reggie Abraham - Last Filed: 07/17/23 13:26> <Nas Pedraza - Last Filed: 07/27/23 20:35> - MDM I completed the quick note portion of this chart signed Reggie Abraham PA-C (Reggie Abraham) 38 Male to the ER for evaluation of chest pain with severe elevated blood pressure. Patient has known high blood pressure without treatment patient be started on hypertensive medication and patient can be discharged home (Nas Pedraza) Disposition <Reggie Abraham - Last Filed: 07/17/23 13:26> Is patient prescribed a controlled substance at d/c from ED?: No Time of Disposition: 18:00 <Nas Pedraza - Last Filed: 07/27/23 20:35> Clinical Impression: Chest pain, Atypical chest pain, Hypertension Disposition: HOME SELF-CARE Condition: Good Instructions (If sedation given, give patient instructions): Chest Pain (ED), Hypertension (ED) Prescriptions: lisinopriL [Prinivil] 10 mg PO DAILY #60 tab Referrals: None,Stated [Primary Care Provider] - 1-2 days
--- NOTE | 2023-07-17 13:38 | XR ---
EXAMINATION TYPE: XR chest 2V DATE OF EXAM: 07/17/2023 COMPARISON: None INDICATION: Chest pain short of breath TECHNIQUE: Frontal and lateral views of the chest are obtained. FINDINGS: The heart size is normal. The pulmonary vasculature is normal. The lungs are clear. IMPRESSION: 1. No acute pulmonary process.
[2023-07-17] MEDS: SODIUM CHLORIDE 0.9% 1,000 ML IV STA (16:20)
[2023-07-17] MEDS: MORPHINE SULFATE 4 MG/ML SYRINGE IVP STA (16:22)
--- NOTE | 2023-07-17 17:02 | CT ---
EXAMINATION TYPE: CT angio chest DATE OF EXAM: 07/17/2023 COMPARISON: Radiograph same day HISTORY: 38-year-old male chest pain TECHNIQUE: Contiguous axial scanning of the chest after the administration of 100ml mL of Isovue 370. Coronal/sagittal reconstructions performed. CT DLP: 422.2mGycm. Automatic exposure control utilized for a dose reduction. FINDINGS: Heart is normal size without pericardial effusion. No flattening of the interventricular septum reflu x of contrast into the hepatic veins. Aorta normal caliber with conventional arch vessel branching anatomy. No thoracic lymphadenopathy by CT size criteria. There is suboptimal contrast bolus and some breathing motion artifact limiting the evaluation. No lar ge central pulmonary embolus is seen. However, many of the lobar, segmental, and more distal branches are very limited to nondiagnostic. Unable to exclude pulmonary emboli such as within anterior segmen jacobo branch of the left upper lobe, axial image 61. Calcified right hilar and subcarinal lymph nodes compatible with prior granulomatous disease. Calcifi ed granuloma right middle lobe and inferior lingula. No consolidation or pleural effusion. Mild dependent atelectasis in addition, there is some focal patchy atelectasis versus early infiltrat e at the lateral basilar right middle lobe, axial image 121. Mild degenerative disc disease lower thoracic spine. IMPRESSION: 1. Suboptimal contrast bolus and breathing motion limiting evaluation for pulmonary embolus. No large central pulmonary embolus. However, lobar, segmental, and more distal arterial branches are very carver ited to nondiagnostic. For example, there is either artifact versus embolus involving the anterior se gmental branch of the left upper lobe axial image 61. Further clinical correlation advised. 2. Some focal patchy atelectasis or early infiltrate/pneumonia lateral segment right middle lobe.
[2023-07-17] MEDS: cloNIDine HCL 0.1 MG TAB PO STA (17:34)
[2023-07-17] MEDS: LABETALOL 5 MG/ML VIAL MDV IVP STA (17:39)
[2023-07-17 18:24] VITALS: BP 157/109; PULSE 78
== END 2023-07-17 18:29 | disposition home or self-care (01) ==
LOC: EC 12:39
DX: I10 Essential (primary) hypertension (principal); I47.10 Supraventricular tachycardia, unspecified; F15.90 Other stimulant use, unspecified, uncomplicated; F17.200 Nicotine dependence, unspecified, uncomplicated; Z86.59 Personal history of other mental and behavioral disorders; Z20.822 Contact with and (suspected) exposure to COVID-19; Z91.030 Bee allergy status
CPT/HCPCS: 36415; 93005; 80053; 83690; 83735; 84484; 85025; 85610; 85730; 87636; 71046; 71275; 99285; 96374; 96361; Q9967; J1920

== ENCOUNTER 2023-09-15 06:45 | Inpatient (IN) | payer OTHER ==
--- NOTE | 2023-09-15 07:27 | ED ---
General Adult HPI - General Chief complaint: Recheck/Abnormal Lab/Rx Stated complaint: Overdose Time Seen by Provider: 09/15/23 07:05 Source: patient, RN notes reviewed Mode of arrival: EMS Limitations: no limitations - History of Present Illness Initial comments: Patient is a 38-year-old male presenting to the emergency department with concerns for shaking. Patient states this occurred after snorting Ativan. When questioned if he was certain this was Ativan patient was unclear. Patient states it could have been something different. Patient states is hard to relax. Patient has wandering thoughts. - Related Data Home Medications Medication Instructions Recorded Confirmed buPROPion XL [Wellbutrin XL] 150 mg PO DAILY 09/15/23 09/15/23 traZODone HCL [Desyrel] 100 mg PO HS 09/15/23 09/15/23 Previous Rx's Medication Instructions Recorded lisinopriL [Prinivil] 10 mg PO DAILY #60 tab 07/18/23 Allergies Allergy/AdvReac Type Severity Reaction Status Date / Time venom-honey bee Allergy Anaphylaxis Verified 09/15/23 07:02 [bee venom (honey bee)] Review of Systems ROS Statement: Those systems with pertinent positive or pertinent negative responses have been documented in the HPI. ROS Other: All systems not noted in ROS Statement are negative. Constitutional: Denies: fever Eyes: Denies: eye pain ENT: Denies: ear pain Respiratory: Denies: cough, dyspnea Cardiovascular: Denies: chest pain Psychiatric: Reports: as per HPI Past Medical History Past Medical History: Hypertension Additional Past Medical History / Comment(s): IVDA History of Any Multi-Drug Resistant Organisms: None Reported Past Surgical History: No Surgical Hx Reported Past Anesthesia/Blood Transfusion Reactions: Unable to Obtain Past Psychological History: ADD/ADHD, Anxiety, Bipolar, Depression, PTSD Smoking Status: Current every day smoker Past Alcohol Use History: Abuse, Daily, Heavy Past Drug Use History: Heroin, IV Drug Use, Methamphetamine, Opiates General Exam Limitations: no limitations General appearance: alert Head exam: Present: atraumatic Eye exam: Present: normal appearance, PERRL, EOMI ENT exam: Present: normal oropharynx Neck exam: Present: normal inspection Respiratory exam: Present: normal lung sounds bilaterally Cardiovascular Exam: Present: tachycardia GI/Abdominal exam: Present: soft. Absent: tenderness Extremities exam: Present: normal inspection Neurological exam: Present: alert Expanded Focused psych exam: Present: restlessness, flight of ideas Skin exam: Present: diaphoretic Course Vital Signs 09/15/23 09/15/23 09/15/23 06:47 07:00 07:04 Temperature 98.5 F Pulse Rate 131 H 134 H Pulse Rate [ 131 H Real Estate Analyst ] Respiratory 22 Rate Blood Pressure 149/109 149/109 O2 Sat by Pulse 97 97 Oximetry Fraction of Inspired Oxygen (FIO2) 09/15/23 09/15/23 09/15/23 07:30 09:08 09:15 Temperature Pulse Rate 146 H 150 H Pulse Rate [ Real Estate Analyst ] Respiratory 38 H 38 H Rate Blood Pressure 173/73 101/58 57/36 O2 Sat by Pulse 98 96 Oximetry Fraction of Inspired Oxygen (FIO2) 09/15/23 09/15/23 09/15/23 09:25 09:40 09:47 Temperature Pulse Rate 143 H 144 H 138 H Pulse Rate [ Real Estate Analyst ] Respiratory 40 H 46 H 46 H Rate Blood Pressure 86/51 111/70 120/68 O2 Sat by Pulse 97 96 96 Oximetry Fraction of Inspired Oxygen (FIO2) 09/15/23 09/15/23 09/15/23 09:52 10:04 10:29 Temperature Pulse Rate 126 H 115 H Pulse Rate [ Real Estate Analyst ] Respiratory 42 H 42 H Rate Blood Pressure 116/66 92/56 O2 Sat by Pulse 95 94 L Oximetry Fraction of 100 Inspired Oxygen (FIO2) 09/15/23 09/15/23 10:47 11:05 Temperature Pulse Rate Pulse Rate [ Real Estate Analyst ] Respiratory Rate Blood Pressure O2 Sat by Pulse Oximetry Fraction of 100 50 Inspired Oxygen (FIO2) - Reevaluation(s) Reevaluation #1: 09/15/23 08:44 Patient reevaluated twice and unchanged. More Ativan ordered. 09/15/23 09:35 Patient remains hyperactive and agitated and diaphoretic despite 12 of Ativan. Additional fluids and Ativan ordered. EKG Findings - EKG Results: EKG: interpreted by PAUL (Complex tachycardia with a rate of 148. Significant artifact. Nonspecific ST-T) EKG shows: tachycardia Procedures - ABG Interpretation Ph: 7.17 PCO2: 58 PO2: 209 Bicarbonate: 21 Interpretation: respiratory acidosis - Central Line Placement Right Femoral Consent Obtained: emergent situation Patient Placed on Monitor/Pulse Ox: Yes MD Prep: mask, gown, gloves Central Line Prep: Povidone-Iodine 1% Ultrasound Used for Placement: No Central Line Lumen Inserted: triple Central Line Position: good blood return, all ports aspirated, flushed, capped, sutured in place with 3-0 nylon Dressing Applied: Tegaderm Patient Tolerated Procedure: well Complications: none - Intubation Paralytic: Rocuronium Laryngoscope: Cee Size: 3 Assist Device Used: other (glide scope used) ET Tube Size: 8 Tube Placement Confirmation: visualized tube passing through cords, equal breath sounds bilaterally, no breath sounds over epigastrium, confirmation by capnometry Patient Tolerated Procedure: well Intubation Complications: none Medical Decision Making - Medical Decision Making Was pt. sent in by a medical professional or institution (BRIDGER Zuniga, STATION SUPERVISOR, urgent care, hospital, or senior living...) When possible be specific @ -No Did you speak to anyone other than the patient for history (EMS, parent, family, police, friend...)? What history was obtained from this source @ -No Did you review nursing and triage notes (agree or disagree)? Why? @ -I reviewed and agree with nursing and triage notes Were old charts reviewed (outside hosp., previous admission, EMS record, old EKG, old radiological studies, urgent care reports/EKG's, senior living records)? Report findings @ -Previous visits reviewed Differential Diagnosis (chest pain, altered mental status, abdominal pain women, abdominal pain men, vaginal bleeding, weakness, fever, dyspnea, syncope, headache, dizziness, GI bleed, back pain, seizure, CVA, palpatations, mental health, musculoskeletal)? @ -Differential Altered Mental Status: Hypoglycemia, DKA, hypercapnia, ETOH, overdose, CO poisoning, trauma, myxedema coma, HTN encephalopathy, infection, encephalitis, psychosis, intercranial hemorrhage, hepatic encephalopathy, meningitis, CVA, this is not meant to be an all-inclusive list EKG interpreted by me (3pts min.). @ -As above X-rays interpreted by me (1pt min.). @ -This x-ray shows endotracheal tube in appropriate position CT interpreted by me (1pt min.). @ -None done U/S interpreted by me (1pt. min.). @ -None done What testing was considered but not performed or refused? (CT, X-rays, U/S, labs)? Why? @ -None What meds were considered but not given or refused? Why? @ -Considered succinylcholine for intubation however concern for rhabdomyolysis developing Did you discuss the management of the patient with other professionals (professionals i.e. , PA, STATION SUPERVISOR, lab, RT, psych nurse, dialysis social worker, dining service inspector, teacher, supervisor dog license officer, outpatient case manager)? Give summary @ -Case was discussed with Dr. Easton who will come consult and admit the patient for hospital call. Dr. Ruiz also paged for critical care consult Was smoking cessation discussed for >3mins.? @ -No Was critical care preformed (if so, how long)? @ -84 minutes critical care time Were there social determinants of health that impacted care today? How? (Homelessness, low income, unemployed, alcoholism, drug addiction, transportation, low edu. Level, literacy, decrease access to med. care, detention, rehab)? @ -No Was there de-escalation of care discussed even if they declined (Discuss DNR or withdrawal of care, Hospice)? DNR status @ -No What co-morbidities impacted this encounter? (DM, HTN, Smoking, COPD, CAD, Cancer, CVA, ARF, Chemo, Hep., AIDS, mental health diagnosis, sleep apnea, morbid obesity)? @ -History of drug abuse Was patient admitted / discharged? Hospital course, mention meds given and route, prescriptions, significant lab abnormalities, going to OR and other pertinent info. @ -Patient presents with agitation and diaphoresis with tachycardia and hypertension. Patient given 28 of Ativan with improvement of this however is becoming drowsy and difficulty protecting his airway. Patient was then intubated for airway support. Blood pressure did drop. Central line was placed and patient is started on pressors. Patient will be admitted to intensive care unit. Admission orders written. Undiagnosed new problem with uncertain prognosis? @ -No Drug Therapy requiring intensive monitoring for toxicity (Heparin, Nitro, I nsulin, Cardizem)? @ -Levophed Were any procedures done? @ -See above Diagnosis/symptom? @ -Methamphetamine toxicity Acute, or Chronic, or Acute on Chronic? @ -Acute Uncomplicated (without systemic symptoms) or Complicated (systemic symptoms)? @ -Complicated with abnormal vital signs and altered mental status requiring multiple doses of medication and intervention Side effects of treatment? @ -No Exacerbation, Progression, or Severe Exacerbation? @ -No Poses a threat to life or bodily function? How? (Chest pain, [place], [place], pneumonia, PE, COPD, DKA, ARF, appy, cholecystitis, CVA, Diverticulitis, Homicidal, Suicidal, threat to staff... and all critical care pts) @ -Threat for rhabdomyolysis. Threat to organ function - Lab Data Result diagrams: 09/15/23 07:40 09/15/23 07:40 Lab Results 09/15/23 09/15/23 09/15/23 Range/Units 07:40 07:40 07:40 WBC 12.3 H (3.8-10.6) k/uL RBC 4.62 (4.30-5.90) m/uL Hgb 15.2 (13.0-17.5) gm/dL Hct 45.5 (39.0-53.0) % MCV 98.6 (80.0-100.0) fL MCH 32.8 (25.0-35.0) pg MCHC 33.3 (31.0-37.0) g/dL RDW 13.3 (11.5-15.5) % Plt Count 397 (150-450) k/uL MPV 6.8 Neutrophils % 86 % Lymphocytes % 10 % Monocytes % 3 % Eosinophils % 0 % Basophils % 0 % Neutrophils # 10.6 H (1.3-7.7) k/uL Lymphocytes # 1.2 (1.0-4.8) k/uL Monocytes # 0.4 (0-1.0) k/uL Eosinophils # 0.0 (0-0.7) k/uL Basophils # 0.0 (0-0.2) k/uL Sodium 144 (137-145) mmol/L Potassium 5.8 H (3.5-5.1) mmol/L Chloride 106 (98-107) mmol/L Carbon Dioxide 21 L (22-30) mmol/L Anion Gap 17 mmol/L BUN 29 H (9-20) mg/dL Creatinine 1.05 (0.66-1.25) mg/dL Est GFR (CKD-EPI)AfAm >90 (>60 ml/min/1.73 sqM) Est GFR (CKD-EPI)NonAf 90 (>60 ml/min/1.73 sqM) Glucose 109 H (74-99) mg/dL POC Glucose (mg/dL) (70-110) mg/dL POC Glu Music Professor ID Calcium 10.9 H (8.4-10.2) mg/dL Total Bilirubin 0.7 (0.2-1.3) mg/dL AST 42 (17-59) U/L ALT 31 (4-49) U/L Alkaline Phosphatase 73 (38-126) U/L Total Protein 8.7 H (6.3-8.2) g/dL Albumin 5.6 H (3.5-5.0) g/dL Salicylates <1.0 mg/dL Urine Opiates Screen Not Detected (NotDetected) Ur Oxycodone Screen Not Detected (NotDetected) Urine Methadone Screen Not Detected (NotDetected) Acetaminophen <10.0 ug/mL Ur Barbiturates Screen Not Detected (NotDetected) U Tricyclic Antidepress Not Detected (NotDetected) Ur Phencyclidine Scrn Not Detected (NotDetected) Ur Amphetamines Screen Detected H (NotDetected) U Methamphetamines Scrn Detected H (NotDetected) U Benzodiazepines Scrn Not Detected (NotDetected) Urine Cocaine Screen Not Detected (NotDetected) U Marijuana (THC) Screen Detected H (NotDetected) Serum Alcohol <10 mg/dL 09/15/23 Range/Units 09:23 WBC (3.8-10.6) k/uL RBC (4.30-5.90) m/uL Hgb (13.0-17.5) gm/dL Hct (39.0-53.0) % MCV (80.0-100.0) fL MCH (25.0-35.0) pg MCHC (31.0-37.0) g/dL RDW (11.5-15.5) % Plt Count (150-450) k/uL MPV Neutrophils % % Lymphocytes % % Monocytes % % Eosinophils % % Basophils % % Neutrophils # (1.3-7.7) k/uL Lymphocytes # (1.0-4.8) k/uL Monocytes # (0-1.0) k/uL Eosinophils # (0-0.7) k/uL Basophils # (0-0.2) k/uL Sodium (137-145) mmol/L Potassium (3.5-5.1) mmol/L Chloride (98-107) mmol/L Carbon Dioxide (22-30) mmol/L Anion Gap mmol/L BUN (9-20) mg/dL Creatinine (0.66-1.25) mg/dL Est GFR (CKD-EPI)AfAm (>60 ml/min/1.73 sqM) Est GFR (CKD-EPI)NonAf (>60 ml/min/1.73 sqM) Glucose (74-99) mg/dL POC Glucose (mg/dL) 80 (70-110) mg/dL POC Glu Music Professor ID Gwen Curiel Calcium (8.4-10.2) mg/dL Total Bilirubin (0.2-1.3) mg/dL AST (17-59) U/L ALT (4-49) U/L Alkaline Phosphatase (38-126) U/L Total Protein (6.3-8.2) g/dL Albumin (3.5-5.0) g/dL Salicylates mg/dL Urine Opiates Screen (NotDetected) Ur Oxycodone Screen (NotDetected) Urine Methadone Screen (NotDetected) Acetaminophen ug/mL Ur Barbiturates Screen (NotDetected) U Tricyclic Antidepress (NotDetected) Ur Phencyclidine Scrn (NotDetected) Ur Amphetamines Screen (NotDetected) U Methamphetamines Scrn (NotDetected) U Benzodiazepines Scrn (NotDetected) Urine Cocaine Screen (NotDetected) U Marijuana (THC) Screen (NotDetected) Serum Alcohol mg/dL Critical Care Time Critical Care Time: Yes Total Critical Care Time: 84 Disposition Clinical Impression: Poisoning by methamphetamine Disposition: ADMITTED IP TO THIS [facility] Condition: Critical Is patient prescribed a controlled substance at d/c from ED?: No Referrals: None,Stated [Primary Care Provider] - 1-2 days Time of Disposition: 11:14
[2023-09-15] MEDS: LORazepam 2 MG/ML INJ IV STA ×6 (07:51→10:06)
[2023-09-15] MEDS: SODIUM CHLORIDE 0.9% 500 ML 500 ML IV STA (07:52)
[2023-09-15 08:28] LABS: ALT 31 U/L (4-49); AST 42 U/L (17-59); Acetaminophen <10.0 ug/mL; African American GFR (CKD) >90 (>60 ml/min/1.73 sqM); Albumin 5.6 g/dL (3.5-5.0); Alcohol <10 mg/dL; Alkaline Phosphatase 73 U/L (38-126); Anion Gap 17 mmol/L; Blood Urea Nitrogen 29 mg/dL (9-20); Calcium 10.9 mg/dL (8.4-10.2); Carbon Dioxide 21 mmol/L (22-30); Chloride 106 mmol/L (98-107); Glucose 109 mg/dL (74-99); Non-African American GFR(CKD) 90 (>60 ml/min/1.73 sqM); Potassium 5.8 mmol/L (3.5-5.1); Salicylate <1.0 mg/dL; Sodium 144 mmol/L (137-145); Total Bilirubin 0.7 mg/dL (0.2-1.3); Total Protein 8.7 g/dL (6.3-8.2)
[2023-09-15 08:32] LABS: Basophils % (A) 0 %; Eosinophils % (A) 0 %; HCT 45.5 % (39.0-53.0); HGB 15.2 gm/dL (13.0-17.5); Lymphocytes # (A) 1.2 k/uL (1.0-4.8); Lymphocytes % (A) 10 %; MCH 32.8 pg (25.0-35.0); MCHC 33.3 g/dL (31.0-37.0); MCV 98.6 fL (80.0-100.0); Mean Platelet Volume 6.8; Monocytes # (A) 0.4 k/uL (0-1.0); Monocytes % (A) 3 %; Neutrophils # (A) 10.6 k/uL (1.3-7.7); Neutrophils % (A) 86 %; Platelet Count 397 k/uL (150-450); RBC 4.62 m/uL (4.30-5.90); RDW 13.3 % (11.5-15.5); WBC 12.3 k/uL (3.8-10.6)
[2023-09-15] MEDS: SODIUM CHLORIDE 0.9% 1,000 ML IV STA ×5 (09:16→20:20)
[2023-09-15 09:25] LABS: Glucose,Whole Blood 80 mg/dL (70-110)
[2023-09-15] MEDS ORDERED: LORazepam 2 MG/ML INJ IV PRN (10:24)
[2023-09-15] MEDS: ROCURONIUM 10 MG/ML (5 ML VIAL) IV ONE (10:34)
[2023-09-15 10:42] LABS: Cocaine Screen,Urine Not Detected (NotDetected); Phencyclidine Screen,Urine Not Detected (NotDetected); Urn Cannabinoid Scrn Detected (NotDetected)
[2023-09-15 10:43] LABS: Amphetamine Screen,Urine Detected (NotDetected); Barbiturate Screen,Urine Not Detected (NotDetected); Benzodiazepines Screen,Urine Not Detected (NotDetected); Methadone Screen, Urine Not Detected (NotDetected); Opiate Screen,Urine Not Detected (NotDetected); Oxycodone Screen, Urine Not Detected (NotDetected); Tricyclic Antidepressant,Urine Not Detected (NotDetected)
[2023-09-15 11:02] LABS: ABG HCO3 22 mmol/L (21-25); ABG Oxygen Saturation 98.9 % (94-97); ABG PCO2 59 mmHg (35-45); ABG PO2 209 mmHg (83-108); ABG TCO2 23 mmol/L (19-24); Allen Test Performed? Yes
[2023-09-15] MEDS: NOREPINEPHRINE 32 MG in SODIUM CHLORIDE 0.9% 218 ML IV SCH ×2 (11:10→19:45)
--- NOTE | 2023-09-15 11:15 | XR ---
EXAMINATION TYPE: XR chest 1V portable DATE OF EXAM: 09/15/2023 11:04 AM CLINICAL INDICATION:Male, 38 years old with history of Tube placement; [facility] COMPARISON: Chest radiographs from 07/09/2023. TECHNIQUE: XR chest 1V portable Frontal view of the chest. FINDINGS: Lungs/Pleura: There is no evidence of pleural effusion, focal consolidation, or pneumothorax. Pulmonary vascularity: Unremarkable. Heart/mediastinum: Cardiomediastinal silhouette is unremarkable. Musculoskeletal: No acute osseous pathology. Other findings: None Lines/Tubes: Endotracheal tube with distal tip 4.1 cm above the carole. IMPRESSION: No acute cardiopulmonary disease/process.
[2023-09-15] MEDS ORDERED: NALOXONE 0.4 MG/ML 1 ML VIAL IV PRN (11:17)
[2023-09-15 12:20] LABS: Amorphous Sediment,Urine Many /hpf; Appearance,Urine Turbid (Clear); Bilirubin,Urine Negative (Negative); Blood,Urine Negative (Negative); Color,Urine Yellow; Glucose,Urine (UA) Negative (Negative); Hyaline Casts,Urine 63 /lpf (0-2); Ketones,Urine Negative (Negative); Leukocyte Esterase,Urine Negative (Negative); Nitrite,Urine Negative (Negative); PH, Urine 5.5 (5.0-8.0); Protein,Urine Trace (Negative); RBC,Urine 3 /hpf (0-5); Specific Gravity,Urine 1.027 (1.001-1.035); Squamous Epithelial Cell,Urine 2 /hpf (0-4); Urobilinogen,Urine <2.0 mg/dL (<2.0)
[2023-09-15 13:59] LABS: ABG PH 7.17 (7.35-7.45)
[2023-09-15] MEDS: IPRATROPIUM-ALBUTEROL 3 ML NEB INHALATION PRN (15:39)
[2023-09-15] MEDS: MIDAZOLAM HCL 50 MG in SODIUM CHLORIDE 0.9% 40 ML IV SCH (16:09)
[2023-09-15] MEDS: LORazepam 2 MG/ML INJ IV PRN (16:26)
--- NOTE | 2023-09-15 16:30 | P.HPIM ---
History of Present Illness H&P Date: 09/15/23 Patient is a 38-year-old male with history of high blood pressure, GERD, intervenous drug use, tobacco dependency, and polysubstance abuse who initially presented to the emergency department with "uncontrollable shaking for 1 hour prior to arrival after masturbating" per ED triage record. Patient reports a history of methamphetamine, alcohol, and marijuana use. He had told the ER that his last meth use was 1 week ago but that he use pot yesterday. At the time of arrival the patient was able to answer questions and follow commands. On arrival patient was tachycardic with a pulse of 131 and hypertensive with a blood pressure of 149/101. Initial laboratory analysis included CBC, CMP, creatine kinase, and urinalysis which were remarkable for white blood cell count 12.3, potassium 5.8, carbon dioxide 21 with anion gap of 17, BUN 29, calcium 10.98, creatinine kinase 591. Urine drug screen was positive for methamphetamines and marijuana due to shaking and agitation in the emergency department he received a total of 28 mg of Ativan. He then became sedated and ultimately required intubation. During that process he became mildly hypotensive and Levophed was initiated and a right groin central line was placed. Arrangements were made for admission to ICU. Critical care was consulted. Patient was started on normal saline at 130 cc/h. Patient seen and examined at bedside. Patient is intubated and sedated. All information is obtained from thorough record review from emergency department notes as well as prior hospital stays. Vital signs reviewed General: nontoxic, no distress, appears at stated age Derm: warm, dry Eyes: EOMI, no lid lag, anicteric sclera, pupils equal round reactive to light ENT: Nose and ears atraumatic Cardiovascular: S1S2 reg, no murmur, no edema Lungs: clear to auscultation bilateral, no rhonchi, no rales, no wheeze, no accessory muscle use Abdominal: soft, nontender to palpation, no guarding Ext: no gross muscle atrophy, no contractures Neuro: not breathing over the vent, Psych: Sedated on vent Assessment/Plan: Adverse reaction to methamphetamine Toxic metabolic encephalopathy Uncontrollable tremors Anion gap metabolic acidosis Hypercalcemia Hyperkalemia Potentially, undetermined etiology -Continue with normal saline at 130 cc/h -Check lactic acid, osmolality, and repeat basic metabolic profile -Await critical care recommendations -Continue with propofol for sedation. Continue with Ativan as needed for severe agitation -Start thiamine 100 mg daily and folic acid 1 mg daily based on history of alcohol dependency -EEG in a.m. -Propofol Imaging: Chest x-rays reviewed by myself shows no acute cardiopulmonary process with ET tube in place. Data Review: As per HPI The patient is admitted with an anticipated greater than 2 midnight stay for evaluation of [tremors and altered mentaiton]. Surrogate decision-maker:Father per records CODE STATUS: fulll by default as patient unable to answer DVT prophylaxis: Heparin Anticipated discharge date: Pending Clinical Course Anticipated discharge place: Pending Clinical Course This dictation was prepared using [employer] voice recognition software. Though every attempt is made to correct errors during dictation some may still exist. Past Medical History Past Medical History: Hypertension Additional Past Medical History / Comment(s): IVDA History of Any Multi-Drug Resistant Organisms: None Reported Past Surgical History: No Surgical Hx Reported Past Anesthesia/Blood Transfusion Reactions: Unable to Obtain Past Psychological History: ADD/ADHD, Anxiety, Bipolar, Depression, PTSD Smoking Status: Current every day smoker Past Alcohol Use History: Abuse, Daily, Heavy Past Drug Use History: Heroin, IV Drug Use, Methamphetamine, Opiates Medications and Allergies Home Medications Medication Instructions Recorded Confirmed Type lisinopriL [Prinivil] 10 mg PO DAILY #60 tab 07/18/23 09/15/23 Rx buPROPion XL [Wellbutrin XL] 150 mg PO DAILY 09/15/23 09/15/23 History traZODone HCL [Desyrel] 100 mg PO HS 09/15/23 09/15/23 History Allergies Allergy/AdvReac Type Severity Reaction Status Date / Time venom-honey bee Allergy Anaphylaxis Verified 09/15/23 07:02 [bee venom (honey bee)] Physical Exam Osteopathic Statement: *. No significant issues noted on an osteopathic structural exam other than those noted in the History and Physical/Consult. Vitals: Vital Signs Temp Pulse Pulse Resp BP Pulse Ox FiO2 09/15/23 15:50 93 09/15/23 15:39 97 09/15/23 15:33 50 09/15/23 13:03 103 H 18 118/72 97 09/15/23 12:30 106 H 27 H 110/66 95 09/15/23 12:00 108 H 27 H 119/68 94 L 09/15/23 11:30 113 H 29 H 99/51 92 L 09/15/23 11:15 108 H 33 H 90/48 91 L 09/15/23 11:05 50 09/15/23 10:47 100 09/15/23 10:29 100 09/15/23 10:04 115 H 42 H 92/56 94 L 09/15/23 09:52 126 H 42 H 116/66 95 09/15/23 09:47 138 H 46 H 120/68 96 09/15/23 09:40 144 H 46 H 111/70 96 09/15/23 09:25 143 H 40 H 86/51 97 09/15/23 09:15 38 H 57/36 96 09/15/23 09:08 150 H 38 H 101/58 09/15/23 07:30 146 H 173/73 98 09/15/23 07:04 131 H 09/15/23 07:00 134 H 149/109 97 09/15/23 06:47 98.5 F 131 H 22 149/109 97 Intake and Output 09/15/23 09/15/23 09/15/23 06:59 14:59 22:59 Intake Total 25.015 Output Total 200 Balance -174.985 Intake: Intake, IV Titration 25.015 Amount Norepinephrine 32 mg In 0.085 Sodium Chloride 0.9% 218 ml @ 0.03 MCG/KG/MIN 1. 021 mls/hr IV .Q24H NATALYA Rx#:[id number] propofoL 1,000 mg In 24.930 Empty Bag 1 bag @ 15 MCG/ KG/MIN 6.532 mls/hr IV . [id number] NATALYA Rx#:[id number] Output: Urine 200 Uretheral ([place]) 200 Other: Weight 72.575 kg Results CBC & Chem 7: 09/15/23 07:40 09/15/23 07:40 Labs: Abnormal Lab Results - Last 24 Hours (Table) 09/15/23 09/15/23 09/15/23 Range/Units 07:40 07:40 07:40 WBC 12.3 H (3.8-10.6) k/uL Neutrophils # 10.6 H (1.3-7.7) k/uL ABG pH (7.35-7.45) ABG pCO2 (35-45) mmHg ABG pO2 (83-108) mmHg ABG O2 Saturation (94-97) % Potassium 5.8 H (3.5-5.1) mmol/L Carbon Dioxide 21 L (22-30) mmol/L BUN 29 H (9-20) mg/dL Glucose 109 H (74-99) mg/dL Calcium 10.9 H (8.4-10.2) mg/dL Creatine Kinase (55-170) U/L Total Protein 8.7 H (6.3-8.2) g/dL Albumin 5.6 H (3.5-5.0) g/dL Urine Protein (Negative) Urine WBC Clumps (None) /hpf Amorphous Sediment (None) /hpf Hyaline Casts (0-2) /lpf Ur Amphetamines Screen Detected H (NotDetected) U Methamphetamines Scrn Detected H (NotDetected) U Marijuana (THC) Screen Detected H (NotDetected) 09/15/23 09/15/23 09/15/23 Range/Units 07:40 07:40 10:59 WBC (3.8-10.6) k/uL Neutrophils # (1.3-7.7) k/uL ABG pH 7.17 L* (7.35-7.45) ABG pCO2 59 H (35-45) mmHg ABG pO2 209 H (83-108) mmHg ABG O2 Saturation 98.9 H (94-97) % Potassium (3.5-5.1) mmol/L Carbon Dioxide (22-30) mmol/L BUN (9-20) mg/dL Glucose (74-99) mg/dL Calcium (8.4-10.2) mg/dL Creatine Kinase 591 H (55-170) U/L Total Protein (6.3-8.2) g/dL Albumin (3.5-5.0) g/dL Urine Protein Trace H (Negative) Urine WBC Clumps Occasional H (None) /hpf Amorphous Sediment Many H (None) /hpf Hyaline Casts 63 H (0-2) /lpf Ur Amphetamines Screen (NotDetected) U Methamphetamines Scrn (NotDetected) U Marijuana (THC) Screen (NotDetected)
[2023-09-15 18:46] LABS: ABG Base Excess -4.7 mmol/L; ABG HCO3 21 mmol/L (21-25); ABG Oxygen Saturation 97.2 % (94-97); ABG PCO2 39 mmHg (35-45); ABG PH 7.34 (7.35-7.45); ABG PO2 94 mmHg (83-108); ABG TCO2 22 mmol/L (19-24); Allen Test Performed? Yes
[2023-09-15 19:33] LABS: African American GFR (CKD) 69 (>60 ml/min/1.73 sqM); Anion Gap 14 mmol/L; Blood Urea Nitrogen 41 mg/dL (9-20); Calcium 8.3 mg/dL (8.4-10.2); Carbon Dioxide 14 mmol/L (22-30); Chloride 114 mmol/L (98-107); Glucose 119 mg/dL (74-99); Non-African American GFR(CKD) 60 (>60 ml/min/1.73 sqM); Sodium 142 mmol/L (137-145)
[2023-09-15 19:34] LABS: Potassium 5.2 mmol/L (3.5-5.1)
[2023-09-15] MEDS: SODIUM CHLORIDE 0.9% 1,000 ML IV ONE (20:21)
[2023-09-15] MEDS: CHLORHEXIDINE GLUCONATE 15 ML CUP MUCOUS MEM SCH (21:45)
--- NOTE | 2023-09-16 04:40 | P.CNPUL ---
History of Present Illness Consult date: 09/16/23 Requesting physician: Mir Jacobo Reason for consult: other (ICU management, methamphetamine overdose) Chief complaint: Shaking and anxiety History of present illness: Patient is a 38-year-old white male with past medical history significant for polysubstance abuse. He is currently intubated mechanical ventilator and unable to provide any information. After reviewing ER records, the patient presented yesterday morning after snorting an unknown substance, possibly thought to be Ativan. He was noted to be hypertensive and tachycardic in the emergency room. He was having uncontrollable shaking with associated anxiety, and soon he became agitated. He was given multiple doses of Ativan, total of 28 mg total. He then became drowsy and had difficulty protecting his airway. Patient was intubated for airway support. Postintubation the patient did become hypotensive. He was given a total of 4.5 L normal saline bolus followed by low-dose norepinephrine, which is currently on hold. A central line was inserted by the ER physician. On my evaluation, patient remains in trauma bay 1. Postintubation chest x-ray shows the endotracheal tube 4.1 cm above the carole. No acute cardiopulmonary process/disease. Most recent ABG show a PaO2 of 94, pCO2 of 39, pH of 7.34. This was done on ventilator settings of assist-control, respiratory rate 18, tidal volume 500, FiO2 50%, PEEP of 5. He is currently sedated on propofol which is infusing at 50 mcg/kg/min. He is breathing slightly above set rate. Current blood pressure is stable. Vasopressors on hold. Normal saline infusing at 130 MLS per hour. Most recent CBC on arrival shows some mild leukocytosis with a WBC count of 12.3, otherwise unremarkable. Most recent BMP from yesterday: Sodium 142, potassium 5.2, chloride 114, serum bicarb 14, BUN 41, creatinine 1.46, glucose 119. CK level 591. There is an acute kidney injury. Suspect some component of rhabdomyolysis. lactic acid level 1.3. Urine drug screen was positive for amphetamines, methamphetamines, and marijuana. EtOH level less than 10. Currently awaiting a bed in the intensive care unit. Review of Systems ROS unobtainable: due to endotracheal tube Past Medical History Past Medical History: Hypertension Additional Past Medical History / Comment(s): IVDA- Heroin; Crystal Meth, Marijuana, snorts "stuff" Bipolar, Anxiety, Depression, PTSD, ETOH - 4 or 5 "tall boys a night" Doesn't stop till he passes out; whiskey. last drink 09/14/23; seizure when he lived in [place] about 2018 History of Any Multi-Drug Resistant Organisms: None Reported Past Surgical History: No Surgical Hx Reported Past Anesthesia/Blood Transfusion Reactions: Unable to Obtain Past Psychological History: ADD/ADHD, Anxiety, Bipolar, Depression, PTSD Smoking Status: Current every day smoker Past Alcohol Use History: Abuse, Daily, Heavy Additional Past Alcohol Use History / Comment(s): per mother 4 or 5 tallboys a night; drinks until he passes out; drinks whiskey if he can get it Past Drug Use History: Heroin, IV Drug Use, Methamphetamine, Opiates - Past Family History Mother Family Medical History: COPD, Hyperlipidemia, Hypertension, Myocardial Infarction ([place]) Additional Family Medical History / Comment(s): adrenal insuffiency, anxiety, depression Father Family Medical History: COPD, Diabetes Mellitus, Hypertension Medications and Allergies Home Medications Medication Instructions Recorded Confirmed Type lisinopriL [Prinivil] 10 mg PO DAILY #60 tab 07/18/23 09/15/23 Rx buPROPion XL [Wellbutrin XL] 150 mg PO DAILY 09/15/23 09/15/23 History traZODone HCL [Desyrel] 100 mg PO HS 09/15/23 09/15/23 History Allergies Allergy/AdvReac Type Severity Reaction Status Date / Time venom-honey bee Allergy Anaphylaxis Verified 09/15/23 07:02 [bee venom (honey bee)] Physical Exam Vitals: Vital Signs Temp Pulse Pulse Resp BP Pulse Ox FiO2 09/16/23 04:03 86 18 113/72 100 09/16/23 03:47 50 09/16/23 03:03 89 18 118/66 100 09/16/23 02:00 88 18 115/73 100 09/16/23 00:21 83 18 112/78 100 09/15/23 23:16 82 18 115/76 100 50 09/15/23 23:00 82 19 115/73 100 50 09/15/23 22:30 82 20 115/72 97 09/15/23 22:00 81 19 115/77 100 50 09/15/23 21:40 81 20 112/74 100 09/15/23 21:20 82 20 109/71 100 09/15/23 21:00 81 20 117/74 100 09/15/23 20:40 85 20 117/79 100 09/15/23 20:20 84 20 114/75 100 09/15/23 20:00 85 19 124/83 100 50 09/15/23 19:39 90 09/15/23 19:30 98.5 F 86 20 121/80 100 09/15/23 19:29 86 09/15/23 19:22 50 09/15/23 19:00 87 20 127/85 100 50 09/15/23 18:30 90 20 175/112 100 09/15/23 18:00 87 21 136/89 09/15/23 17:30 89 21 121/81 100 09/15/23 17:00 90 23 123/81 100 09/15/23 16:30 99 19 137/83 99 09/15/23 16:00 93 23 130/85 99 09/15/23 15:50 93 09/15/23 15:39 97 09/15/23 15:33 50 09/15/23 15:30 94 24 126/82 99 09/15/23 15:00 96 21 129/84 98 09/15/23 14:30 98 21 120/81 96 09/15/23 14:00 99 25 H 131/88 93 L 09/15/23 13:30 101 H 25 H 121/78 96 09/15/23 13:03 103 H 18 118/72 97 09/15/23 12:30 106 H 27 H 110/66 95 09/15/23 12:00 108 H 27 H 119/68 94 L 09/15/23 11:30 113 H 29 H 99/51 92 L 09/15/23 11:15 108 H 33 H 90/48 91 L 09/15/23 11:05 50 09/15/23 10:47 100 09/15/23 10:29 100 09/15/23 10:04 115 H 42 H 92/56 94 L 09/15/23 09:52 126 H 42 H 116/66 95 09/15/23 09:47 138 H 46 H 120/68 96 09/15/23 09:40 144 H 46 H 111/70 96 09/15/23 09:25 143 H 40 H 86/51 97 09/15/23 09:15 38 H 57/36 96 09/15/23 09:08 150 H 38 H 101/58 09/15/23 07:30 146 H 173/73 98 09/15/23 07:04 131 H 09/15/23 07:00 134 H 149/109 97 09/15/23 06:47 98.5 F 131 H 22 149/109 97 Intake and Output 09/15/23 09/15/23 09/16/23 14:59 22:59 06:59 Intake Total 25.015 1725.387 130 Output Total 200 1515 100 Balance -174.985 210.387 30 Intake: IV 650 130 .9NS 650 130 Intake, IV Titration 25.015 1075.387 Amount Norepinephrine 32 mg In 0.085 Sodium Chloride 0.9% 218 ml @ 0.03 MCG/KG/MIN 1. 021 mls/hr IV .Q24H NATALYA Rx#:[id number] Norepinephrine 32 mg In 0.317 Sodium Chloride 0.9% 218 ml @ 0.03 MCG/KG/MIN 1. 021 mls/hr IV .Q24H NATALYA Rx#:[id number] Sodium Chloride 0.9% 1, 1000 000 ml @ 999 mls/hr IV . Q1H1M ONE Rx#:[id number] propofoL 1,000 mg In 24.930 75.070 Empty Bag 1 bag @ 15 MCG/ KG/MIN 6.532 mls/hr IV . [id number] NATALYA Rx#:[id number] Output: Urine 200 1515 100 Uretheral ([place]) 200 Other: Voiding Method Indwelling Catheter Weight 72.575 kg GENERAL EXAM: Sedated, 38-year-old white male, will open eyes to verbal stimulation but follows no commands. HEAD: Normocephalic and atraumatic EYES: Normal reaction of pupils, equal size. NOSE: Clear with pink turbinates. THROAT: No erythema or exudates. NECK: No masses, no JVD. CHEST: No chest wall deformity. LUNGS: Equal air entry with no crackles, wheeze, rhonchi or dullness. Intubated to the mechanical ventilator, breathing slightly above set rate CVS: S1 and S2 normal with no audible murmur, regular rhythm. No extra heart sounds ABDOMEN: No hepatosplenomegaly, active bowel sounds, no guarding or rigidity. SPINE: No scoliosis or deformity SKIN: No rashes CENTRAL NERVOUS SYSTEM: No focal deficits, tone is normal in all 4 extremities. No tremors. No seizure-like activity. EXTREMITIES: There is no peripheral edema, clubbing, or cyanosis. Peripheral pulses are intact. Results - Laboratory Findings CBC and BMP: 09/16/23 07:52 09/16/23 07:52 ABG ABG pH 7.34 (7.35-7.45) L 09/15/23 18:43 ABG pCO2 39 mmHg (35-45) 09/15/23 18:43 ABG pO2 94 mmHg (83-108) 09/15/23 18:43 ABG O2 Saturation 97.2 % (94-97) H 09/15/23 18:43 Abnormal lab findings: Abnormal Labs 09/15/23 09/15/23 09/15/23 07:40 07:40 07:40 WBC 12.3 H Neutrophils # 10.6 H ABG pH ABG pCO2 ABG pO2 ABG O2 Saturation Potassium 5.8 H Chloride Carbon Dioxide 21 L BUN 29 H Creatinine Glucose 109 H Calcium 10.9 H Creatine Kinase Total Protein 8.7 H Albumin 5.6 H Urine Protein Urine WBC Clumps Amorphous Sediment Hyaline Casts Ur Amphetamines Screen Detected H U Methamphetamines Scrn Detected H U Marijuana (THC) Screen Detected H 09/15/23 09/15/23 09/15/23 07:40 07:40 10:59 WBC Neutrophils # ABG pH 7.17 L* ABG pCO2 59 H ABG pO2 209 H ABG O2 Saturation 98.9 H Potassium Chloride Carbon Dioxide BUN Creatinine Glucose Calcium Creatine Kinase 591 H Total Protein Albumin Urine Protein Trace H Urine WBC Clumps Occasional H Amorphous Sediment Many H Hyaline Casts 63 H Ur Amphetamines Screen U Methamphetamines Scrn U Marijuana (THC) Screen 09/15/23 09/15/23 18:28 18:43 WBC Neutrophils # ABG pH 7.34 L ABG pCO2 ABG pO2 ABG O2 Saturation 97.2 H Potassium 5.2 H Chloride 114 H Carbon Dioxide 14 L BUN 41 H Creatinine 1.46 H Glucose 119 H Calcium 8.3 L Creatine Kinase Total Protein Albumin Urine Protein Urine WBC Clumps Amorphous Sediment Hyaline Casts Ur Amphetamines Screen U Methamphetamines Scrn U Marijuana (THC) Screen - Diagnostic Findings Chest x-ray: image reviewed Assessment and Plan Assessment: Suspected methamphetamine/amphetamine overdose, treated with multiple doses of Ativan in the emergency room, a total of 28 mg, became drowsy and unable to protect airway, patient was intubated for airway protection Mechanical ventilator management, secondary to above, postintubation chest x-ray shows the endotracheal tube 4.1 cm above the carole. Otherwise unremarkable for acute cardiopulmonary disease process. Postintubation hypotension, improved with fluid resuscitation Suspect acute developing rhabdomyelosis, CPK level 591 Acute kidney injury, likely secondary to above Acute metabolic anion gap acidosis Hyperkalemia, improving History of hypertension History of anxiety/depression History of polysubstance abuse Plan: Patient's medications, labs, imaging reviewed Continue on the mechanical ventilator with current settings Repeat ABG in the morning Repeat chest x-ray in the morning Propofol for sedation and add ventilator order set Monitor urine output, repeat labs including CPK in the morning. Continue with IV fluids Add heparin for DVT prophylaxis Add Protonix for GI prophylaxis Consult dietary for tube feeding initiation Patient's prognosis is guarded. Patient is currently in trauma bay 1, awaiting a bed in the intensive care unit. I have personally seen and examined the patient, performed the documentation and the assessment and plan as written. Number of minutes spent on the visit:20 This is a joint evaluation that was done along with nurse practitioner and the patient was seen in the emergency department and subsequently patient was transferred to the ICU. In summary, the patient has acute agitation/psychosis suspected to be related to drug overdose. This patient has taken a combination of amphetamine related drugs. Urine drug screen was positive. The patient required extensive doses of Ativan and I was told he required a total of 28 mg of Ativan and he was still agitated. He was intubated and placed on mechanical ventilator. Following that, the patient was placed on a combination of propofol and fentanyl. At the time of my evaluation, the patient was still agitated and restless. I added Zyprexa. A total of 10 mg of IM Zyprexa was given in the emergency department and the patient will be placed on 5 mg IM every 8 hours on an as-needed basis. Will keep the patient intubated on mechanical ventilator over the next 24 hours. Will monitor his rhabdomyolysis. Continue IV fluids. Continue supportive care. Hemodynamically stable at this point in time. Labs were reviewed. Monitor CPK. Continue IV fluids and the patient is currently on low-dose pressors. Will continue to follow. Will make further recommendations based on her progress. Anticipate weaning of pressors within the next few hours. Condition is obviously critical at this point in time. The chest x-ray was reviewed from this morning and it shows no acute process. Labs were also reviewed. No evidence of any renal failure at this point in time. This evaluation was done more than 30 minutes and this is a critical care evaluation that was done in the emergency department and subsequently patient was seen in the ICU. Time with Patient: Greater than 30
[2023-09-16 05:14] LABS: ABG Base Excess -2.5 mmol/L; ABG HCO3 23 mmol/L (21-25); ABG Oxygen Saturation 98.8 % (94-97); ABG PCO2 39 mmHg (35-45); ABG PH 7.37 (7.35-7.45); ABG PO2 126 mmHg (83-108); ABG TCO2 24 mmol/L (19-24); Allen Test Performed? Yes
[2023-09-16] MEDS: fentaNYL (PF). 1,000 MCG in SODIUM CHLORIDE 0.9% 80 ML IV SCH (06:28)
--- NOTE | 2023-09-16 07:33 | XR ---
EXAMINATION TYPE: XR chest 1V DATE OF EXAM: 09/16/2023 5:50 AM CLINICAL INDICATION:Male, 38 years old with history of intubated; COMPARISON: Chest radiographs from 09/15/2023 TECHNIQUE: XR chest 1V Frontal view of the chest. FINDINGS: Lungs/Pleura: There is no evidence of pleural effusion, focal consolidation, or pneumothorax. Pulmonary vascularity: Unremarkable. Heart/mediastinum: Cardiomediastinal silhouette is unremarkable. Musculoskeletal: No acute osseous pathology. Other findings: None Lines/Tubes: Endotracheal tube with distal tip 4.7 cm above the carole. Nasogastric tube with its distal tip and side-port projecting under the diaphragm. IMPRESSION: No acute cardiopulmonary disease/process.
[2023-09-16 08:58] LABS: ALT 78 U/L (4-49); AST 148 U/L (17-59); African American GFR (CKD) >90 (>60 ml/min/1.73 sqM); Albumin 3.1 g/dL (3.5-5.0); Alkaline Phosphatase 46 U/L (38-126); Anion Gap 4 mmol/L; Blood Urea Nitrogen 27 mg/dL (9-20); Calcium 7.9 mg/dL (8.4-10.2); Carbon Dioxide 21 mmol/L (22-30); Chloride 116 mmol/L (98-107); Glucose 80 mg/dL (74-99); Magnesium 2.5 mg/dL (1.6-2.3); Non-African American GFR(CKD) >90 (>60 ml/min/1.73 sqM); Potassium 4.1 mmol/L (3.5-5.1); Sodium 141 mmol/L (137-145); Total Protein 5.2 g/dL (6.3-8.2)
[2023-09-16 09:00] LABS: Basophils % (A) 0 %; Eosinophils % (A) 0 %; HCT 38.6 % (39.0-53.0); HGB 12.4 gm/dL (13.0-17.5); Lymphocytes # (A) 0.8 k/uL (1.0-4.8); Lymphocytes % (A) 7 %; MCH 32.7 pg (25.0-35.0); MCHC 32.2 g/dL (31.0-37.0); MCV 101.7 fL (80.0-100.0); Macrocytosis Slight; Mean Platelet Volume 6.7; Monocytes # (A) 0.5 k/uL (0-1.0); Monocytes % (A) 4 %; Neutrophils # (A) 10.3 k/uL (1.3-7.7); Neutrophils % (A) 88 %; Platelet Count 256 k/uL (150-450); RBC 3.79 m/uL (4.30-5.90); RDW 13.9 % (11.5-15.5); WBC 11.7 k/uL (3.8-10.6)
[2023-09-16 09:49] LABS: Creatine Kinase 5358 U/L (55-170)
[2023-09-16] MEDS: OLANZapine 10 MG VIAL IM STA (10:24)
[2023-09-16] MEDS: PANTOPRAZOLE 40 MG/10 ML VIAL IV SCH (10:25)
[2023-09-16] MEDS: HEPARIN SODIUM,PORCINE 5,000 UNIT/ML 1 ML VIAL SQ SCH (10:27)
[2023-09-16] MEDS: FOLIC ACID 1 MG TAB PO SCH (10:28)
[2023-09-16] MEDS: THIAMINE 100 MG TAB PO SCH (10:28)
[2023-09-16 11:27] LABS: Glucose,Whole Blood 87 mg/dL (70-110)
--- NOTE | 2023-09-16 17:07 | P.PN ---
Subjective Progress Note Date: 09/16/23 (delayed charting seen at 1010) Patient is a 38-year-old male with history of high blood pressure, GERD, intervenous drug use, tobacco dependency, and polysubstance abuse who initially presented to the emergency department with "uncontrollable shaking for 1 hour prior to arrival after masturbating" per ED triage record. Patient reports a history of methamphetamine, alcohol, and marijuana use. He had told the ER that his last meth use was 1 week ago but that he use pot yesterday. At the time of arrival the patient was able to answer questions and follow commands. On arrival patient was tachycardic with a pulse of 131 and hypertensive with a blood pressure of 149/101. Initial laboratory analysis included CBC, CMP, creatine kinase, and urinalysis which were remarkable for white blood cell count 12.3, potassium 5.8, carbon dioxide 21 with anion gap of 17, BUN 29, calcium 10.98, creatinine kinase 591. Urine drug screen was positive for methamphetamines and marijuana due to shaking and agitation in the emergency department he received a total of 28 mg of Ativan. He then became sedated and ultimately required intubation. During that process he became mildly hypotensive and Levophed was initiated and a right groin central line was placed. Arrangements were made for admission to ICU. Critical care was consulted. Patient was started on normal saline at 130 cc/h. His CK continue to elevate. He had some difficulty with sedation. Patient seen and examined at bedside. He remains sedated on the vent. Per nursing despite propofol he was sitting up in the bed. Seen with Dr. Dumont who is recommending zyprexa. Vital signs reviewed General: Nontoxic, severe distress, appears at stated age Cardiovascular: S1S2 reg, no murmur Lungs: CTA bilateral, no rhonchi, no rales, no accessory muscle use Abdominal: Soft, nontender to palpation, no guarding Ext: No gross muscle atrophy, no edema b/l lower extremities, no contractures Neuro: Opens eyes, +cough, + gag Psych: Sedated on vent Assessment/Plan: Adverse reaction to methamphetamine Toxic metabolic encephalopathy -Continue with propofol for sedation. Continue with Ativan as needed for severe agitation. - D/W Dr. Dumont who added zyprexa for agitation -Thiamine 100 mg daily and folic acid 1 mg daily based on history of alcohol dependency - Await EEG results Rhabdomyolysis Transaminitis -Suspect secondary to methamphetamine use -Transaminitis is likely secondary to rhabdo -Continue with normal saline at 130 cc/h - Repeat CK at 1700 and in AM - Repeat CMP in AM Anion gap metabolic acidosis, resolved Hypercalcemia, resolved Hyperkalemia, resolved Intractable tremors, resolved [place], resolved Imaging: Chest x-ray is reviewed by myself shows no acute process Data Review: Labs reviewed by me include CBC CMP and creatine kinase which are remarkable for white blood cell count 11.7, hemoglobin 12.4, chloride 116, magnesium 2.5, AST 148, ALT 78, creatine kinase 5358 DVT prophylaxis: Heparin SC Anticipated discharge date: Pending Clinical Course Anticipated discharge place: Pending Clinical Course This dictation was prepared using [employer] voice recognition software. Though every attempt is made to correct errors during dictation some may still exist. Objective - Vital Signs Vital signs: Vital Signs Temp 97.6 F 09/16/23 10:30 Pulse 90 09/16/23 10:45 Resp 18 09/16/23 10:45 BP 116/72 09/16/23 10:45 Pulse Ox 97 09/16/23 10:45 FiO2 50 09/16/23 16:00 Intake & Output 09/15/23 09/16/23 09/16/23 18:59 06:59 18:59 Intake Total 77.633 1894.941 929.868 Output Total 200 1615 1265 Balance -122.367 279.941 -335.132 Weight 72.575 kg 70.6 kg Intake: IV 780 650 .9NS 780 650 Intake, IV Titration 77.633 1114.941 279.868 Amount Norepinephrine 32 mg In 0.085 Sodium Chloride 0.9% 218 ml @ 0.03 MCG/KG/MIN 1. 021 mls/hr IV .Q24H NATALYA Rx#:[id number] Norepinephrine 32 mg In 0.317 Sodium Chloride 0.9% 218 ml @ 0.03 MCG/KG/MIN 1. 021 mls/hr IV .Q24H NATALYA Rx#:[id number] Sodium Chloride 0.9% 1, 1000 000 ml @ 999 mls/hr IV . Q1H1M ONE Rx#:[id number] fentaNYL (PF). 1,000 mcg 82.252 In Sodium Chloride 0.9% 80 ml @ 0.5 MCG/KG/HR 3. 629 mls/hr IV .Q24H NATALYA Rx#:[id number] propofoL 1,000 mg In 77.548 114.624 197.616 Empty Bag 1 bag @ 15 MCG/ KG/MIN 6.532 mls/hr IV . [id number] NATALYA Rx#:[id number] Output: Urine 200 1615 1265 Uretheral ([place]) 200 Other: Voiding Method Indwelling Catheter Indwelling Catheter - Labs CBC & Chem 7: 09/16/23 07:52 09/16/23 07:52 Labs: Abnormal Lab Results - Last 24 Hours (Table) 09/15/23 09/15/23 09/16/23 Range/Units 18:28 18:43 05:11 WBC (3.8-10.6) k/uL RBC (4.30-5.90) m/uL Hgb (13.0-17.5) gm/dL Hct (39.0-53.0) % MCV (80.0-100.0) fL Neutrophils # (1.3-7.7) k/uL Lymphocytes # (1.0-4.8) k/uL ABG pH 7.34 L (7.35-7.45) ABG pO2 126 H (83-108) mmHg ABG O2 Saturation 97.2 H 98.8 H (94-97) % Potassium 5.2 H (3.5-5.1) mmol/L Chloride 114 H (98-107) mmol/L Carbon Dioxide 14 L (22-30) mmol/L BUN 41 H (9-20) mg/dL Creatinine 1.46 H (0.66-1.25) mg/dL Glucose 119 H (74-99) mg/dL Osmolality 315 H (275-295) mOsm/kg Calcium 8.3 L (8.4-10.2) mg/dL Magnesium (1.6-2.3) mg/dL AST (17-59) U/L ALT (4-49) U/L Creatine Kinase (55-170) U/L Total Protein (6.3-8.2) g/dL Albumin (3.5-5.0) g/dL 09/16/23 09/16/23 Range/Units 07:52 07:52 WBC 11.7 H (3.8-10.6) k/uL RBC 3.79 L (4.30-5.90) m/uL Hgb 12.4 L (13.0-17.5) gm/dL Hct 38.6 L (39.0-53.0) % MCV 101.7 H (80.0-100.0) fL Neutrophils # 10.3 H (1.3-7.7) k/uL Lymphocytes # 0.8 L (1.0-4.8) k/uL ABG pH (7.35-7.45) ABG pO2 (83-108) mmHg ABG O2 Saturation (94-97) % Potassium (3.5-5.1) mmol/L Chloride 116 H (98-107) mmol/L Carbon Dioxide 21 L (22-30) mmol/L BUN 27 H (9-20) mg/dL Creatinine (0.66-1.25) mg/dL Glucose (74-99) mg/dL Osmolality (275-295) mOsm/kg Calcium 7.9 L (8.4-10.2) mg/dL Magnesium 2.5 H (1.6-2.3) mg/dL AST 148 H (17-59) U/L ALT 78 H (4-49) U/L Creatine Kinase 5358 H* (55-170) U/L Total Protein 5.2 L (6.3-8.2) g/dL Albumin 3.1 L (3.5-5.0) g/dL
[2023-09-16] MEDS: SODIUM CHLORIDE 0.9% 1,000 ML IV SCH (19:33)
[2023-09-16 19:59] LABS: Glucose,Whole Blood 70 mg/dL (70-110)
--- NOTE | 2023-09-16 20:35 | EEG ---
ELECTROENCEPHALOGRAM REPORT PREAMBLE: This is a 38-year-old male with tremors. The patient has history of IV drug use, polysubstance abuse, methamphetamine, alcohol, and marijuana use. The patient currently on fentanyl 1.5, Peridex, folic acid, Ativan, norepinephrine, and propofol 50 mcg/kg per minute. EEG FINDINGS: This is a 21-channel digital EEG recorded with video component, utilizing 10/20 international system with referential and bipolar montages. Background consists of moderately well-developed and regulated, predominantly 10 to 11 hertz alpha activity intermixed with some theta activity in bihemispheric region. Background does not seem to be clearly reactive to eye opening or closing. Different stages of sleep were not clearly seen. Some superimposed intermittent delta activity was seen. No focal or generalized epileptiform activity was seen. IMPRESSION: This is an abnormal EEG due to background slowing of mild degree, suggestive of encephalopathy or medication effect. No focal, lateralized, or epileptiform activity was seen. MMCHRISTOPHERL / IJN: [id number] / [facility] HOSPITALJasmeet
[2023-09-16 21:54] LABS: Glucose,Whole Blood 56 mg/dL (70-110)
[2023-09-16] MEDS: DEXTROSE 50% SYRINGE 50 ML IVP STA (21:55)
[2023-09-16] MEDS: DEXTROSE 50% SYRINGE 50 ML IVP ONE (22:00)
[2023-09-16 22:15] LABS: Glucose,Whole Blood 99 mg/dL (70-110)
[2023-09-16 23:52] LABS: Glucose,Whole Blood 93 mg/dL (70-110)
[2023-09-17] MEDS: ACETAMINOPHEN TAB 325 MG TAB PO PRN (00:51)
[2023-09-17] MEDS: LORazepam 2 MG/ML INJ IV PRN (00:51)
[2023-09-17 03:51] LABS: Glucose,Whole Blood 84 mg/dL (70-110)
[2023-09-17 05:38] LABS: ABG Base Excess -2.9 mmol/L; ABG HCO3 22 mmol/L (21-25); ABG Oxygen Saturation 97.1 % (94-97); ABG PCO2 38 mmHg (35-45); ABG PH 7.38 (7.35-7.45); ABG PO2 82 mmHg (83-108); ABG TCO2 23 mmol/L (19-24); Allen Test Performed? Yes
[2023-09-17 06:27] LABS: HCT 36.6 % (39.0-53.0); HGB 11.6 gm/dL (13.0-17.5); MCH 32.6 pg (25.0-35.0); MCHC 31.7 g/dL (31.0-37.0); MCV 102.8 fL (80.0-100.0); Macrocytosis Slight; Mean Platelet Volume 7.1; Platelet Count 239 k/uL (150-450); RBC 3.56 m/uL (4.30-5.90); RDW 13.7 % (11.5-15.5); WBC 9.9 k/uL (3.8-10.6)
[2023-09-17 06:48] LABS: Glucose,Whole Blood 85 mg/dL (70-110)
[2023-09-17 06:51] LABS: ALT 233 U/L (4-49); AST 268 U/L (17-59); African American GFR (CKD) >90 (>60 ml/min/1.73 sqM); Albumin 2.9 g/dL (3.5-5.0); Alkaline Phosphatase 51 U/L (38-126); Anion Gap 4 mmol/L; Blood Urea Nitrogen 14 mg/dL (9-20); Calcium 7.7 mg/dL (8.4-10.2); Carbon Dioxide 21 mmol/L (22-30); Chloride 113 mmol/L (98-107); Glucose 72 mg/dL (74-99); Non-African American GFR(CKD) >90 (>60 ml/min/1.73 sqM); Phosphorus 2.2 mg/dL (2.5-4.5); Potassium 4.1 mmol/L (3.5-5.1); Sodium 138 mmol/L (137-145); Total Bilirubin 0.6 mg/dL (0.2-1.3)
[2023-09-17 06:55] LABS: Creatine Kinase 1463 U/L (55-170)
--- NOTE | 2023-09-17 08:25 | XR ---
EXAMINATION TYPE: XR chest 1V DATE OF EXAM: 09/17/2023 COMPARISON: 09/16/2023 INDICATION: Intubated difficulty breathing TECHNIQUE: Single frontal view of the chest is obtained. FINDINGS: The heart size is normal. The pulmonary vasculature is normal. Mild right lower lobe infiltrate is present. Retrocardiac infiltrate may be present. Small left pleur al effusion is present. Endotracheal tube tip is above the carole. Nasogastric tube transverses the thorax tip within the lef t upper quadrant of the abdomen. IMPRESSION: 1. Right lower lobe infiltrate. Retrocardiac infiltrate is present with a small left effusion. Follow -up is recommended. 2. Lines and catheters discussed above.
--- NOTE | 2023-09-17 14:05 | P.PN ---
Subjective Progress Note Date: 09/17/23 (delayed charting seen at 1030) Patient is a 38-year-old male with history of high blood pressure, GERD, intervenous drug use, tobacco dependency, and polysubstance abuse who initially presented to the emergency department with "uncontrollable shaking for 1 hour prior to arrival after masturbating" per ED triage record. Patient reports a history of methamphetamine, alcohol, and marijuana use. He had told the ER that his last meth use was 1 week ago but that he use pot yesterday. At the time of arrival the patient was able to answer questions and follow commands. On arrival patient was tachycardic with a pulse of 131 and hypertensive with a blood pressure of 149/101. Initial laboratory analysis included CBC, CMP, creatine kinase, and urinalysis which were remarkable for white blood cell count 12.3, potassium 5.8, carbon dioxide 21 with anion gap of 17, BUN 29, calcium 10.98, creatinine kinase 591. Urine drug screen was positive for methamphetamines and marijuana due to shaking and agitation in the emergency department he received a total of 28 mg of Ativan. He then became sedated and ultimately required intubation. During that process he became mildly hypotensive and Levophed was initiated and a right groin central line was placed. Arrangements were made for admission to ICU. Critical care was consulted. Patient was started on normal saline at 130 cc/h. His CK continued to elevate. He had some difficulty with sedation. Patient seen and examined at bedside. Patient seen and examined at bedside. He opens his eyes to touch but does not follow commands. Vital signs reviewed General: Nontoxic, severe distress, appears at stated age Cardiovascular: S1S2 reg, no murmur Lungs: CTA bilateral, no rhonchi, no rales, no accessory muscle use Abdominal: Soft, nontender to palpation, no guarding Ext: No gross muscle atrophy, no edema b/l lower extremities, no contractures Neuro: Opens eyes, +cough, + gag Psych: Sedated on vent Assessment/Plan: Adverse reaction to methamphetamine Toxic metabolic encephalopathy Case discussed with Dr. Dumont patient still having episodes of agitation. He is recommending continued mechanical ventilation -Currently requiring fentanyl and propofol drip to maintain sedation -Patient receiving Zyprexa 5 mg IM 3 times daily as needed for agitation -Thiamine 100 mg daily and folic acid 1 mg daily based on history of alcohol dependency - EEG without epileptform activity Probable staph Pneumonia - had fevers last night, has infiltrate and + sputum culture - start rocephin 2 grams IVPB daily Rhabdomyolysis Transaminitis -Suspect secondary to methamphetamine use -Transaminitis is likely secondary to rhabdo -Continue with normal saline at 130 cc/h - Repeat CK at 1700 and in AM - Repeat CMP in AM Anion gap metabolic acidosis, resolved Hypercalcemia, resolved Hyperkalemia, resolved Intractable tremors, resolved [place], resolved Imaging: Chest x-ray as reviewed by myself: Right lower lobe infiltrate. EEG: Abnormal EEG due to background slowing. No epileptiform activity noted Data Review: Sputum culture: Presumptive Staph aureus Labs reviewed from today include CBC, CMP, and creatinine kinase which are remarkable for hemoglobin 11.6, chloride 113, carbon dioxide 21, AST 268, ALT 233, CK 1496 DVT prophylaxis: Heparin SC Anticipated discharge date: Pending Clinical Course Anticipated discharge place: Pending Clinical Course This dictation was prepared using [employer] voice recognition software. Though every attempt is made to correct errors during dictation some may still exist. Objective - Vital Signs Vital signs: Vital Signs Temp 99.6 F 09/17/23 04:00 Pulse 98 09/17/23 07:01 Resp 18 09/17/23 07:01 BP 128/78 09/17/23 07:01 Pulse Ox 99 09/17/23 07:01 FiO2 40 09/17/23 12:00 Intake & Output 09/16/23 09/17/23 09/17/23 18:59 06:59 18:59 Intake Total 4464.265 8467.214 865.474 Output Total 1445 755 350 Balance -556.362 8720.214 515.474 Weight 70.6 kg 73.3 kg Intake: IV 910 1690 520 .9NS 910 1690 520 Intake, IV Titration 279.868 505.214 265.474 Amount fentaNYL (PF). 1,000 mcg 82.252 227.401 100 In Sodium Chloride 0.9% 80 ml @ 0.5 MCG/KG/HR 3. 629 mls/hr IV .Q24H [facility] Rx#:[id number] propofoL 1,000 mg In 197.616 277.813 165.474 Empty Bag 1 bag @ 15 MCG/ KG/MIN 6.532 mls/hr IV . [id number] [facility]AL[facility] Rx#:[id number] Tube Feeding 150 80 Other 60 Output: Urine 1445 755 350 Other: Voiding Method Indwelling Catheter Indwelling Catheter Indwelling Catheter - Labs CBC & Chem 7: 09/17/23 05:37 09/17/23 05:37 Labs: Abnormal Lab Results - Last 24 Hours (Table) 09/16/23 09/16/23 09/17/23 Range/Units 16:39 21:54 05:37 RBC 3.56 L (4.30-5.90) m/uL Hgb 11.6 L (13.0-17.5) gm/dL Hct 36.6 L (39.0-53.0) % MCV 102.8 H (80.0-100.0) fL ABG pO2 (83-108) mmHg ABG O2 Saturation (94-97) % Chloride (98-107) mmol/L Carbon Dioxide (22-30) mmol/L Creatinine (0.66-1.25) mg/dL Glucose (74-99) mg/dL POC Glucose (mg/dL) 56 L (70-110) mg/dL Calcium (8.4-10.2) mg/dL Phosphorus (2.5-4.5) mg/dL AST (17-59) U/L ALT (4-49) U/L Creatine Kinase 3462 H* (55-170) U/L Total Protein (6.3-8.2) g/dL Albumin (3.5-5.0) g/dL 09/17/23 09/17/23 Range/Units 05:37 05:47 RBC (4.30-5.90) m/uL Hgb (13.0-17.5) gm/dL Hct (39.0-53.0) % MCV (80.0-100.0) fL ABG pO2 82 L (83-108) mmHg ABG O2 Saturation 97.1 H (94-97) % Chloride 113 H (98-107) mmol/L Carbon Dioxide 21 L (22-30) mmol/L Creatinine 0.64 L (0.66-1.25) mg/dL Glucose 72 L (74-99) mg/dL POC Glucose (mg/dL) (70-110) mg/dL Calcium 7.7 L (8.4-10.2) mg/dL Phosphorus 2.2 L (2.5-4.5) mg/dL AST 268 H (17-59) U/L ALT 233 H (4-49) U/L Creatine Kinase 1463 H* (55-170) U/L Total Protein 5.0 L (6.3-8.2) g/dL Albumin 2.9 L (3.5-5.0) g/dL Microbiology - Last 24 Hours (Table) 09/15/23 10:31 Gram Stain - Preliminary Sputum Sputum Culture - Preliminary Presumptive Staph aureus
--- NOTE | 2023-09-17 14:20 | P.PN ---
Subjective Progress Note Date: 09/17/23 Patient is a 38-year-old white male with past medical history significant for polysubstance abuse. He is currently intubated mechanical ventilator and unable to provide any information. After reviewing ER records, the patient presented yesterday morning after snorting an unknown substance, possibly thought to be Ativan. He was noted to be hypertensive and tachycardic in the emergency room. He was having uncontrollable shaking with associated anxiety, and soon he became agitated. He was given multiple doses of Ativan, total of 28 mg total. He then became drowsy and had difficulty protecting his airway. Patient was intubated for airway support. Postintubation the patient did become hypotensive. He was given a total of 4.5 L normal saline bolus followed by low-dose norepinephrine, which is currently on hold. A central line was inserted by the ER physician. On my evaluation, patient remains in trauma bay 1. Postintubation chest x-ray shows the endotracheal tube 4.1 cm above the carole. No acute cardiopulmonary process/disease. Most recent ABG show a PaO2 of 94, pCO2 of 39, pH of 7.34. This was done on ventilator settings of assist-control, respiratory rate 18, tidal volume 500, FiO2 50%, PEEP of 5. He is currently sedated on propofol which is infusing at 50 mcg/kg/min. He is breathing slightly above set rate. Current blood pressure is stable. Vasopressors on hold. Normal saline infusing at 130 MLS per hour. Most recent CBC on arrival shows some mild leukocytosis wi th a WBC count of 12.3, otherwise unremarkable. Most recent BMP from yesterday: Sodium 142, potassium 5.2, chloride 114, serum bicarb 14, BUN 41, creatinine 1.46, glucose 119. CK level 591. There is an acute kidney injury. Suspect some component of rhabdomyolysis. lactic acid level 1.3. Urine drug screen was positive for amphetamines, methamphetamines, and marijuana. EtOH level less than 10. Currently awaiting a bed in the intensive care unit. On today's evaluation of 09/17/2023, the patient remains intubated on the mechanical ventilator. He is very sensitive to sedation holidays the patient gets very agitated and restless and he tried to jump out of bed once off sedation. This morning, he is calm and comfortable on propofol running at 50 mcg/kg/min and the patient is also on fentanyl at 2 mcg/kg/h. The patient remains on the mechanical ventilator. The patient remains on assist-control mode and the patient is currently at the rate of 18, tidal volume of 500, FiO2 of 50% with a PEEP of 5. The blood gas from today shows a pH of 7.38 with a pCO2 of 38 and pO2 of 82 and a follow-up chest x-ray that was done today showed a limited right lower lobe pulmonary infiltrate/small effusion on the left. Orotracheal tube is in a good location. The patient is showing improvement in CPK level and the rectal mass is improving. BUN is at 40 with a creatinine of 0.6 and a sodium levels of 138. CPK level is down to 1463. AST is 268, ALT 233, and the calcium level is at 7.7. Albumin is at 2.9. WBC count of 9.9 with a hemoglobin of 11.6. He is afebrile at this point in time. Is on IV Rocephin as an empiric antibiotic coverage covering for potential aspiration. No pressors for now. Objective - Vital Signs Vital signs: Vital Signs Temp 99.6 F 09/17/23 04:00 Pulse 98 09/17/23 07:01 Resp 18 09/17/23 07:01 BP 128/78 09/17/23 07:01 Pulse Ox 99 09/17/23 07:01 FiO2 40 09/17/23 08:45 Intake & Output 09/16/23 09/17/23 09/17/23 18:59 06:59 18:59 Intake Total 6166.244 8407.214 79.834 Output Total 1445 755 Balance -335.847 7446.214 79.834 Weight 70.6 kg 73.3 kg Intake: IV 910 1690 .9NS 910 1690 Intake, IV Titration 279.868 505.214 79.834 Amount fentaNYL (PF). 1,000 mcg 82.252 227.401 In Sodium Chloride 0.9% 80 ml @ 0.5 MCG/KG/HR 3. 629 mls/hr IV .Q24H [facility]CLUDES THE [facility] Rx#:[id number] propofoL 1,000 mg In 197.616 277.813 79.834 Empty Bag 1 bag @ 15 MCG/ KG/MIN 6.532 mls/hr IV . [id number] COUNT INCLUDES THE [facility] Rx#:[id number] Tube Feeding 150 Other 60 Output: Urine 1445 755 Other: Voiding Method Indwelling Catheter Indwelling Catheter - Exam GENERAL EXAM: Sedated, 38-year-old white male, will open eyes to verbal stimulation but follows no commands. Intubated on mechanical ventilator on a combination of propofol and fentanyl. HEAD: Normocephalic and atraumatic EYES: Normal reaction of pupils, equal size. NOSE: Clear with pink turbinates. THROAT: No erythema or exudates. NECK: No masses, no JVD. CHEST: No chest wall deformity. LUNGS: Equal air entry with no crackles, wheeze, rhonchi or dullness. Intubated to the mechanical ventilator, breathing slightly above set rate CVS: S1 and S2 normal with no audible murmur, regular rhythm. No extra heart sounds ABDOMEN: No hepatosplenomegaly, active bowel sounds, no guarding or rigidity. SPINE: No scoliosis or deformity SKIN: No rashes CENTRAL NERVOUS SYSTEM: No focal deficits, tone is normal in all 4 extremities. No tremors. No seizure-like activity. EXTREMITIES: There is no peripheral edema, clubbing, or cyanosis. Peripheral pulses are intact. - Labs CBC & Chem 7: 09/17/23 05:37 09/17/23 05:37 Labs: Abnormal Lab Results - Last 24 Hours (Table) 09/16/23 09/16/23 09/17/23 Range/Units 16:39 21:54 05:37 RBC 3.56 L (4.30-5.90) m/uL Hgb 11.6 L (13.0-17.5) gm/dL Hct 36.6 L (39.0-53.0) % MCV 102.8 H (80.0-100.0) fL ABG pO2 (83-108) mmHg ABG O2 Saturation (94-97) % Chloride (98-107) mmol/L Carbon Dioxide (22-30) mmol/L Creatinine (0.66-1.25) mg/dL Glucose (74-99) mg/dL POC Glucose (mg/dL) 56 L (70-110) mg/dL Calcium (8.4-10.2) mg/dL Phosphorus (2.5-4.5) mg/dL AST (17-59) U/L ALT (4-49) U/L Creatine Kinase 3462 H* (55-170) U/L Total Protein (6.3-8.2) g/dL Albumin (3.5-5.0) g/dL 09/17/23 09/17/23 Range/Units 05:37 05:47 RBC (4.30-5.90) m/uL Hgb (13.0-17.5) gm/dL Hct (39.0-53.0) % MCV (80.0-100.0) fL ABG pO2 82 L (83-108) mmHg ABG O2 Saturation 97.1 H (94-97) % Chloride 113 H (98-107) mmol/L Carbon Dioxide 21 L (22-30) mmol/L Creatinine 0.64 L (0.66-1.25) mg/dL Glucose 72 L (74-99) mg/dL POC Glucose (mg/dL) (70-110) mg/dL Calcium 7.7 L (8.4-10.2) mg/dL Phosphorus 2.2 L (2.5-4.5) mg/dL AST 268 H (17-59) U/L ALT 233 H (4-49) U/L Creatine Kinase 1463 H* (55-170) U/L Total Protein 5.0 L (6.3-8.2) g/dL Albumin 2.9 L (3.5-5.0) g/dL Microbiology - Last 24 Hours (Table) 09/15/23 10:31 Gram Stain - Preliminary Sputum Assessment and Plan Assessment: methamphetamine/amphetamine overdose, treated with multiple doses of Ativan in the emergency room, a total of 28 mg, became drowsy and unable to protect airway, patient was intubated for airway protection, currently on a combination of propofol and fentanyl Acute hypoxic/hypercapnic respiratory failure and the patient is currently on mechanical ventilator. The patient was intubated for airway protection. Limited bibasilar atelectatic changes, consider aspiration pneumonia. The patient is currently on IV Rocephin. Postintubation hypotension, improved with fluid resuscitation, currently normotensive Suspect acute developing rhabdomyelosis, CPK level is improving and the patient is currently on IV fluids Acute kidney injury, likely secondary to above, improved Acute metabolic anion gap acidosis, improved Hyperkalemia, improving History of hypertension History of anxiety/depression History of polysubstance abuse Plan: The patient continues to show signs of psychosis/delirium secondary to drugs. Will give another 24 hours of propofol and fentanyl. Continue ventilator support and no ventilator change will be done for today. Patient will receive Zyprexa on as-needed basis for agitation. CPK level is improving Continue IV fluids Manage electrolyte imbalance Continue IV Rocephin Hemodynamically stable The plan is to keep the patient on mechanical ventilation for another 24 hours for the drug effects to recover and ultimately the patient will consider for weaning and possible extubation probably by tomorrow. Overall condition is stable. Will continue to follow. Will be kept on mechanical ventilator for another 24 hours. No evidence of any renal failure at this point in time. This evaluation was done more than 30 minutes and this is a critical care evaluation that was done in the emergency department and subsequently patient was seen in the ICU. Time with Patient: Greater than 30
[2023-09-17 17:54] LABS: Glucose,Whole Blood 90 mg/dL (70-110)
[2023-09-17] MEDS ORDERED: IPRATROPIUM-ALBUTEROL 3 ML NEB INHALATION PRN (23:03)
[2023-09-17 23:20] LABS: Glucose,Whole Blood 94 mg/dL (70-110)
[2023-09-18] MEDS: IPRATROPIUM-ALBUTEROL 3 ML NEB INHALATION SCH (00:47)
[2023-09-18 05:21] LABS: ABG HCO3 26 mmol/L (21-25); ABG Oxygen Saturation 98.1 % (94-97); ABG PCO2 46 mmHg (35-45); ABG PH 7.37 (7.35-7.45); ABG PO2 97 mmHg (83-108); ABG TCO2 28 mmol/L (19-24); Allen Test Performed? Yes
[2023-09-18 06:28] LABS: HCT 37.2 % (39.0-53.0); MCH 32.9 pg (25.0-35.0); MCHC 32.3 g/dL (31.0-37.0); MCV 101.9 fL (80.0-100.0); Macrocytosis Slight; Mean Platelet Volume 7.3; Platelet Count 234 k/uL (150-450); RBC 3.65 m/uL (4.30-5.90); RDW 13.5 % (11.5-15.5); WBC 7.4 k/uL (3.8-10.6)
[2023-09-18 06:37] LABS: ALT 235 U/L (4-49); AST 120 U/L (17-59); African American GFR (CKD) >90 (>60 ml/min/1.73 sqM); Albumin 2.9 g/dL (3.5-5.0); Alkaline Phosphatase 50 U/L (38-126); Anion Gap 3 mmol/L; Blood Urea Nitrogen 8 mg/dL (9-20); Carbon Dioxide 24 mmol/L (22-30); Chloride 109 mmol/L (98-107); Creatine Kinase 744 U/L (55-170); Glucose 111 mg/dL (74-99); Non-African American GFR(CKD) >90 (>60 ml/min/1.73 sqM); Potassium 4.3 mmol/L (3.5-5.1); Sodium 136 mmol/L (137-145); Total Bilirubin 0.5 mg/dL (0.2-1.3); Total Protein 5.1 g/dL (6.3-8.2)
[2023-09-18 06:59] LABS: Glucose,Whole Blood 112 mg/dL (70-110)
--- NOTE | 2023-09-18 07:42 | XR ---
EXAMINATION TYPE: XR chest 1V portable DATE OF EXAM: 09/18/2023 5:40 AM CLINICAL INDICATION:Male, 38 years old with history of Tube placement; [facility] COMPARISON: Chest radiographs from TECHNIQUE: XR chest 1V portable Frontal view of the chest. FINDINGS: Lungs/Pleura: Is right lower lobe airspace opacities. There is no evidence of pleural effusion, left focal consolidation, or pneumothorax. Pulmonary vascularity: Unremarkable. Heart/mediastinum: Cardiomediastinal silhouette is unremarkable. Musculoskeletal: No acute osseous pathology. Other findings: None Lines/Tubes: Endotracheal tube with distal tip 6.9 cm above the carole. Nasogastric tube with its distal tip and side-port projecting under the diaphragm. IMPRESSION: 1. Persistent right lower lobe airspace opacities. 2. Support tubes in appropriate position.
--- NOTE | 2023-09-18 10:14 | CDI ---
Documentation Clarification Form Date: 09/18/2023 08:49:31 AM From: Guadalupe Jackson RN CCDS Phone: [phone] Admit Date: 09/15/2023 11:17:00 AM Patient Name: Tenzin Ro Visit Number: [id number] Discharge Date: ATTENTION: The Clinical Documentation Specialists (CDI) and [facility] Coding Staff appreciate your assistance in clarifying documentation. Please respond to the clarification below the line at the bottom and electronically sign. The CDI & [facility] Coding staff will review the response and follow-up if needed. Please note: Queries are made part of the Legal Health Record. If you have any questions, please contact the author of this message via ITS. Dr. Corina Iniguez Conflicting documentation has been found in the medical record. As attending physician, please provide clarification. Methamphetamine / Amphetamine overdose, Pulmonary consult and notes 09/15 & 09/16. Adverse reaction to Methamphetamine, Medicine H&P and notes 09/14 09/16. History/Risk Factors: 38-year-old male presents to the ED with concerns for shaking. Patient states occurred after snorting Ativan. When questioned if he was certain this was Ativan patient was unclear could have been something else. Patient states its hard to relax. Patient has wandering thoughts. Medical History: HTN, ADD/ADHD, Anxiety, BIpolar, Depression, PTSD, Tobacco dependency, Polysubstance abuse and IV Drug use. 09/14 ED and H&P. Clinical Indicators: 09/14 06:47, VSS: B/P 149/109; HR 131; Temp 98.5F Oral; RR 22; SpO2 97% ra 09/14 09:15, VSS: B/P 57/36; RR 38 09/14, Toxicology Screen: Detected Amphetamines, Methamphetamines, THC 09/14, Labs: Wbc 12.3; Hgb 15.2 Neutrophils 10.6; K 5.8; Carbon Dioxide 21; BUN 29; Cr 1.05; Glucose 109; Calcium 10.9; Creatine Kinase 591; Total Protein 8.7; Albumin 5.6 09/14, H&P: He had told the ER that his last meth use was one week ago but that he used pot yesterday. Upon arrival he was unable to answer questions or follow commands. Treatment: 09/14: Ativan 2mg IV x1; Ativan 2mg IV x 1; Ativan 4mg IV x 1; Ativan 4mg IV x 1; Ativan 8mg IV x 1; Ativan 4mg IV x 1; 09/14 Zemuron IV x 1; 09/14: 0.9NS 500cc IV Bolus; 0.9NS 1L IV Bolus x 2; 09/14 ICU admission; 09/14 Intubated. Please clarify which diagnosis is most appropriate: [ ] Methamphetamine / Amphetamine overdose [ ] Adverse reaction to Methamphetamine [ ] Other (please specify) [ x ] Unable to determine-- patient denied taking recently (Template Last Revised: July 2020) MTDD
[2023-09-18] MEDS: OLANZapine 10 MG VIAL IM PRN (11:35)
[2023-09-18 12:01] LABS: Glucose,Whole Blood 128 mg/dL (70-110)
[2023-09-18] MEDS: OLANZapine 10 MG VIAL IM STA (12:51)
--- NOTE | 2023-09-18 12:59 | P.PN ---
Subjective Progress Note Date: 09/18/23 Patient is a 38-year-old white male with past medical history significant for polysubstance abuse. He is currently intubated mechanical ventilator and unable to provide any information. After reviewing ER records, the patient presented yesterday morning after snorting an unknown substance, possibly thought to be Ativan. He was noted to be hypertensive and tachycardic in the emergency room. He was having uncontrollable shaking with associated anxiety, and soon he became agitated. He was given multiple doses of Ativan, total of 28 mg total. He then became drowsy and had difficulty protecting his airway. Patient was intubated for airway support. Postintubation the patient did become hypotensive. He was given a total of 4.5 L normal saline bolus followed by low-dose norepinephrine, which is currently on hold. A central line was inserted by the ER physician. On my evaluation, patient remains in trauma bay 1. Postintubation chest x-ray shows the endotracheal tube 4.1 cm above the carole. No acute cardiopulmonary process/disease. Most recent ABG show a PaO2 of 94, pCO2 of 39, pH of 7.34. This was done on ventilator settings of assist-control, respiratory rate 18, tidal volume 500, FiO2 50%, PEEP of 5. He is currently sedated on propofol which is infusing at 50 mcg/kg/min. He is breathing slightly above set rate. Current blood pressure is stable. Vasopressors on hold. Normal saline infusing at 130 MLS per hour. Most recent CBC on arrival shows some mild leukocytosis wi th a WBC count of 12.3, otherwise unremarkable. Most recent BMP from yesterday: Sodium 142, potassium 5.2, chloride 114, serum bicarb 14, BUN 41, creatinine 1.46, glucose 119. CK level 591. There is an acute kidney injury. Suspect some component of rhabdomyolysis. lactic acid level 1.3. Urine drug screen was positive for amphetamines, methamphetamines, and marijuana. EtOH level less than 10. Currently awaiting a bed in the intensive care unit. On today's evaluation of 09/17/2023, the patient remains intubated on the mechanical ventilator. He is very sensitive to sedation holidays the patient gets very agitated and restless and he tried to jump out of bed once off sedation. This morning, he is calm and comfortable on propofol running at 50 mcg/kg/min and the patient is also on fentanyl at 2 mcg/kg/h. The patient remains on the mechanical ventilator. The patient remains on assist-control mode and the patient is currently at the rate of 18, tidal volume of 500, FiO2 of 50% with a PEEP of 5. The blood gas from today shows a pH of 7.38 with a pCO2 of 38 and pO2 of 82 and a follow-up chest x-ray that was done today showed a limited right lower lobe pulmonary infiltrate/small effusion on the left. Orotracheal tube is in a good location. The patient is showing improvement in CPK level and the rectal mass is improving. BUN is at 40 with a creatinine of 0.6 and a sodium levels of 138. CPK level is down to 1463. AST is 268, ALT 233, and the calcium level is at 7.7. Albumin is at 2.9. WBC count of 9.9 with a hemoglobin of 11.6. He is afebrile at this point in time. Is on IV Rocephin as an empiric antibiotic coverage covering for potential aspiration. No pressors for now. On today's evaluation of 09/18/2023, the patient remains quite agitated. An attempt was done to wean off the sedation and the patient became extremely agitated, was not following any commands trying to reach out to and became very asynchronous with mechanical ventilator. As such, the trial was aborted. Meanwhile, the patient has developed a pneumonia of the right lower lobe which could be potentially aspiration in nature. The sputum culture was positive for MSSA and the patient is currently on IV Zosyn. He is currently on propofol running at 75 mcg/kg/min and fentanyl at 2 mcg/kg/h. He is also requiring Zyprexa to control his agitation. He is on assist-control mode with rate of 18, tidal volume of 500, FiO2 40% with a PEEP of 5. Tmax was 102. The pH is at 7.37 with a pCO2 of 46 and pO2 of 97. Chest x-ray shows a lower lobe consolidation on the right. He is on tube feed with vital 1.2 at the rate of 44 cc an hour. Fluid balance +1.6 L over the past 24 hours and the patient is on normal saline at rate of 75 cc an hour. The blood work from today shows a WBC count of 7.4 with a hemoglobin of 12. BUN is at 8 with a creatinine of 0.6. Sodium levels at 136, LFTs are improving compared to yesterday. Objective - Vital Signs Vital signs: Vital Signs Temp 100.9 F H 09/18/23 04:00 Pulse 88 09/18/23 08:03 Resp 19 09/18/23 07:00 BP 121/63 09/18/23 07:00 Pulse Ox 96 09/18/23 07:00 FiO2 40 09/18/23 07:40 Intake & Output 09/17/23 09/18/23 09/18/23 18:59 06:59 18:59 Intake Total 2006.114 1698.776 413.702 Output Total 835 1185 755 Balance 1171.114 513.776 -341.298 Weight 75.1 kg Intake: IV 1320 825 275 .9NS 1320 825 225 cefTRIAXone 2 gm In 50 Sodium Chloride 0.9% 50 ml @ 100 mls/hr IVPB Q24HR [facility] Rx#:[id number] Intake, IV Titration 436.114 383.776 98.702 Amount fentaNYL (PF). 1,000 mcg 170.64 100 98.702 In Sodium Chloride 0.9% 80 ml @ 0.5 MCG/KG/HR 3. 629 mls/hr IV .Q24H [facility] Rx#:[id number] propofoL 1,000 mg In 265.474 283.776 Empty Bag 1 bag @ 15 MCG/ KG/MIN 6.532 mls/hr IV . [id number] [facility] Rx#:[id number] Tube Feeding 250 400 40 Other 90 Output: Urine 835 1185 755 Other: Voiding Method Indwelling Catheter Indwelling Catheter - Exam GENERAL EXAM: Sedated, 38-year-old white male, will open eyes to verbal stimulation but follows no commands. Intubated on mechanical ventilator on a combination of propofol and fentanyl. HEAD: Normocephalic and atraumatic EYES: Normal reaction of pupils, equal size. NOSE: Clear with pink turbinates. THROAT: No erythema or exudates. NECK: No masses, no JVD. CHEST: No chest wall deformity. LUNGS: Equal air entry with no crackles, wheeze, rhonchi or dullness. Intubated to the mechanical ventilator, breathing slightly above set rate CVS: S1 and S2 normal with no audible murmur, regular rhythm. No extra heart sounds ABDOMEN: No hepatosplenomegaly, active bowel sounds, no guarding or rigidity. SPINE: No scoliosis or deformity SKIN: No rashes CENTRAL NERVOUS SYSTEM: No focal deficits, tone is normal in all 4 extremities. No tremors. No seizure-like activity. EXTREMITIES: There is no peripheral edema, clubbing, or cyanosis. Peripheral pulses are intact. - Labs CBC & Chem 7: 09/18/23 06:00 09/18/23 06:00 Labs: Abnormal Lab Results - Last 24 Hours (Table) 09/18/23 09/18/23 09/18/23 Range/Units 05:20 06:00 06:00 RBC 3.65 L (4.30-5.90) m/uL Hgb 12.0 L (13.0-17.5) gm/dL Hct 37.2 L (39.0-53.0) % MCV 101.9 H (80.0-100.0) fL ABG pCO2 46 H (35-45) mmHg ABG HCO3 26 H (21-25) mmol/L ABG Total CO2 28 H (19-24) mmol/L ABG O2 Saturation 98.1 H (94-97) % Sodium 136 L (137-145) mmol/L Chloride 109 H (98-107) mmol/L BUN 8 L (9-20) mg/dL Creatinine 0.62 L (0.66-1.25) mg/dL Glucose 111 H (74-99) mg/dL POC Glucose (mg/dL) (70-110) mg/dL Calcium 8.0 L (8.4-10.2) mg/dL AST 120 H (17-59) U/L ALT 235 H (4-49) U/L Creatine Kinase 744 H (55-170) U/L Total Protein 5.1 L (6.3-8.2) g/dL Albumin 2.9 L (3.5-5.0) g/dL 09/18/23 Range/Units 06:57 RBC (4.30-5.90) m/uL Hgb (13.0-17.5) gm/dL Hct (39.0-53.0) % MCV (80.0-100.0) fL ABG pCO2 (35-45) mmHg ABG HCO3 (21-25) mmol/L ABG Total CO2 (19-24) mmol/L ABG O2 Saturation (94-97) % Sodium (137-145) mmol/L Chloride (98-107) mmol/L BUN (9-20) mg/dL Creatinine (0.66-1.25) mg/dL Glucose (74-99) mg/dL POC Glucose (mg/dL) 112 H (70-110) mg/dL Calcium (8.4-10.2) mg/dL AST (17-59) U/L ALT (4-49) U/L Creatine Kinase (55-170) U/L Total Protein (6.3-8.2) g/dL Albumin (3.5-5.0) g/dL Microbiology - Last 24 Hours (Table) 09/15/23 10:31 Gram Stain - Final Sputum Sputum Culture - Final Staphylococcus aureus Assessment and Plan Assessment: methamphetamine/amphetamine overdose, treated with multiple doses of Ativan in the emergency room, a total of 28 mg, became drowsy and unable to protect airway, patient was intubated for airway protection, currently on a combination of propofol and fentanyl the patient is also requiring Zyprexa to control his agitation. Sedation holiday was given and the patient failed due to excessive agitation and he was not showing reasonable neurologic recovery. He could be potentially still in withdrawals. The patient on sedation for another 24 hours. Will keep him intubated for now. Acute hypoxic/hypercapnic respiratory failure and the patient is currently on mechanical ventilator. The patient was intubated for airway protection. Sub sequently, the patient developed a right lower lobe pneumonia Right lower lobe staphylococcal pneumonia with MSSA. The patient is currently on IV Rocephin. Postintubation hypotension, improved with fluid resuscitation, currently normotensive Suspect acute developing rhabdomyelosis, CPK level is improving and the patient is currently on IV fluids Acute kidney injury, likely secondary to above, improved Acute metabolic anion gap acidosis, improved Hyperkalemia, improving History of hypertension History of anxiety/depression History of polysubstance abuse Plan: The patient continues to show signs of psychosis/delirium secondary to drugs. Will give another 24 hours of propofol and fentanyl. Utilize Zyprexa for agitation Continue ventilator support and no ventilator changes . Patient will receive Zyprexa on as-needed basis for agitation. CPK level is improving Continue IV fluids Manage electrolyte imbalance Continue IV Rocephin Hemodynamically stable The plan is to keep the patient on mechanical ventilation for another 24 hours for the drug effects to recover and ultimately the patient will consider for weaning and possible extubation probably by tomorrow. Overall condition is stable. Will continue to follow. Will be kept on mechanical ventilator for another 24 hours. This evaluation was done more than 30 minutes and this is a critical care evaluation that was done in the emergency department and subsequently patient was seen in the ICU. Time with Patient: Greater than 30
--- NOTE | 2023-09-18 15:53 | P.PN ---
Subjective Progress Note Date: 09/18/23 (delayed charting seen at 0920) Patient is a 38-year-old male with history of high blood pressure, GERD, intervenous drug use, tobacco dependency, and polysubstance abuse who initially presented to the emergency department with "uncontrollable shaking for 1 hour prior to arrival after masturbating" per ED triage record. Patient reports a history of methamphetamine, alcohol, and marijuana use. He had told the ER that his last meth use was 1 week ago but that he use pot yesterday. At the time of arrival the patient was able to answer questions and follow commands. On arrival patient was tachycardic with a pulse of 131 and hypertensive with a blood pressure of 149/101. Initial laboratory analysis included CBC, CMP, creatine kinase, and urinalysis which were remarkable for white blood cell count 12.3, potassium 5.8, carbon dioxide 21 with anion gap of 17, BUN 29, calcium 10.98, creatinine kinase 591. Urine drug screen was positive for methamphetamines and marijuana due to shaking and agitation in the emergency department he received a total of 28 mg of Ativan. He then became sedated and ultimately required intubation. During that process he became mildly hypotensive and Levophed was initiated and a right groin central line was placed. Arrangements were made for admission to ICU. Critical care was consulted. Patient was started on normal saline at 130 cc/h. His CK continued to elevate. He had some difficulty with sedation. He developed fevers and suputm culture confirmed MSSA pneumonia. Patient seen and examined at bedside.He continues to be agitated on the vent. He does not follow commands. Vital signs reviewed General: Nontoxic, severe distress, appears at stated age Cardiovascular: S1S2 reg, no murmur Lungs: CTA bilateral, no rhonchi, no rales, no accessory muscle use Abdominal: Soft, nontender to palpation, no guarding Ext: No gross muscle atrophy, no edema b/l lower extremities, no contractures Neuro: Opens eyes, +cough, + gag Psych: Sedated on vent Assessment/Plan: Adverse reaction to methamphetamine Toxic metabolic encephalopathy Case discussed with Dr. Dumont patient still having episodes of agitation. He is recommending continued mechanical ventilation -Currently requiring fentanyl and propofol drip to maintain sedation -Patient receiving Zyprexa 5 mg IM 3 times daily as needed for agitation -Thiamine 100 mg daily and folic acid 1 mg daily based on history of alcohol dependency - EEG without epileptform activity MSSA Pneumonia -Discontinue Rocephin as patient has alegria sensitive MSSA will cefazolin 1 gram IVPB q6h D # 2 of abx Rhabdomyolysis,improved Transaminitis, improving -Suspect secondary to methamphetamine use -Transaminitis is likely secondary to rhabdo -Continue with normal saline at 130 cc/h - Repeat CMP in AM Anion gap metabolic acidosis, resolved Hypercalcemia, resolved Hyperkalemia, resolved Intractable tremors, resolved [place], resolved Imaging: Chest x-ray as reviewed by myself reveals right greater than left interstitial infiltrate Data Review: Labs reviewed from today include CBC and CMP which are remarkable for hemoglobin 12, AST 120, ALT 235. CK is down to 744 Sputum culture came back with MSSA which is pansensitive. DVT prophylaxis: Heparin SC Anticipated discharge date: Pending Clinical Course Anticipated discharge place: Pending Clinical Course This dictation was prepared using [employer] voice recognition software. Though every attempt is made to correct errors during dictation some may still exist. Objective - Vital Signs Vital signs: Vital Signs Temp 98.9 F 09/18/23 08:00 Pulse 86 09/18/23 15:24 Resp 18 09/18/23 13:00 BP 122/69 09/18/23 13:00 Pulse Ox 96 09/18/23 13:00 FiO2 40 09/18/23 15:10 Intake & Output 09/17/23 09/18/23 09/18/23 18:59 06:59 18:59 Intake Total 2006.114 2644.660 4059.426 Output Total 835 1185 1520 Balance 1171.114 513.776 -235.574 Weight 75.1 kg 75.1 kg Intake: IV 1320 825 575 .9NS 1320 825 525 cefTRIAXone 2 gm In 50 Sodium Chloride 0.9% 50 ml @ 100 mls/hr IVPB Q24HR [facility] Rx#:[id number] Intake, IV Titration 436.114 383.776 345.426 Amount fentaNYL (PF). 1,000 mcg 170.64 100 181.921 In Sodium Chloride 0.9% 80 ml @ 0.5 MCG/KG/HR 3. 629 mls/hr IV .Q24H [facility] Rx#:[id number] propofoL 1,000 mg In 265.474 283.776 163.505 Empty Bag 1 bag @ 15 MCG/ KG/MIN 6.532 mls/hr IV . [id number] [facility] Rx#:[id number] Tube Feeding 250 400 304 Other 90 60 Output: Urine 835 1185 1520 Other: Voiding Method Indwelling Catheter Indwelling Catheter Indwelling Catheter - Labs CBC & Chem 7: 09/18/23 06:00 09/18/23 06:00 Labs: Abnormal Lab Results - Last 24 Hours (Table) 09/18/23 09/18/23 09/18/23 Range/Units 05:20 06:00 06:00 RBC 3.65 L (4.30-5.90) m/uL Hgb 12.0 L (13.0-17.5) gm/dL Hct 37.2 L (39.0-53.0) % MCV 101.9 H (80.0-100.0) fL ABG pCO2 46 H (35-45) mmHg ABG HCO3 26 H (21-25) mmol/L ABG Total CO2 28 H (19-24) mmol/L ABG O2 Saturation 98.1 H (94-97) % Sodium 136 L (137-145) mmol/L Chloride 109 H (98-107) mmol/L BUN 8 L (9-20) mg/dL Creatinine 0.62 L (0.66-1.25) mg/dL Glucose 111 H (74-99) mg/dL POC Glucose (mg/dL) (70-110) mg/dL Calcium 8.0 L (8.4-10.2) mg/dL AST 120 H (17-59) U/L ALT 235 H (4-49) U/L Creatine Kinase 744 H (55-170) U/L Total Protein 5.1 L (6.3-8.2) g/dL Albumin 2.9 L (3.5-5.0) g/dL 09/18/23 09/18/23 Range/Units 06:57 11:59 RBC (4.30-5.90) m/uL Hgb (13.0-17.5) gm/dL Hct (39.0-53.0) % MCV (80.0-100.0) fL ABG pCO2 (35-45) mmHg ABG HCO3 (21-25) mmol/L ABG Total CO2 (19-24) mmol/L ABG O2 Saturation (94-97) % Sodium (137-145) mmol/L Chloride (98-107) mmol/L BUN (9-20) mg/dL Creatinine (0.66-1.25) mg/dL Glucose (74-99) mg/dL POC Glucose (mg/dL) 112 H 128 H (70-110) mg/dL Calcium (8.4-10.2) mg/dL AST (17-59) U/L ALT (4-49) U/L Creatine Kinase (55-170) U/L Total Protein (6.3-8.2) g/dL Albumin (3.5-5.0) g/dL Microbiology - Last 24 Hours (Table) 09/15/23 10:31 Gram Stain - Final Sputum Sputum Culture - Final Staphylococcus aureus
[2023-09-18 17:16] LABS: Glucose,Whole Blood 108 mg/dL (70-110)
[2023-09-19 00:09] LABS: Glucose,Whole Blood 142 mg/dL (70-110)
[2023-09-19 04:18] LABS: ALT 162 U/L (4-49); AST 51 U/L (17-59); African American GFR (CKD) >90 (>60 ml/min/1.73 sqM); Albumin 2.7 g/dL (3.5-5.0); Alkaline Phosphatase 48 U/L (38-126); Anion Gap 4 mmol/L; Blood Urea Nitrogen 7 mg/dL (9-20); Calcium 8.1 mg/dL (8.4-10.2); Carbon Dioxide 30 mmol/L (22-30); Chloride 107 mmol/L (98-107); Glucose 107 mg/dL (74-99); Magnesium 1.8 mg/dL (1.6-2.3); Non-African American GFR(CKD) >90 (>60 ml/min/1.73 sqM); Phosphorus 3.6 mg/dL (2.5-4.5); Sodium 141 mmol/L (137-145); Total Bilirubin 0.3 mg/dL (0.2-1.3)
[2023-09-19 04:25] LABS: HCT 35.2 % (39.0-53.0); HGB 11.2 gm/dL (13.0-17.5); MCH 32.5 pg (25.0-35.0); MCHC 31.8 g/dL (31.0-37.0); MCV 102.2 fL (80.0-100.0); Macrocytosis Slight; Mean Platelet Volume 7.8; Platelet Count 276 k/uL (150-450); RBC 3.45 m/uL (4.30-5.90); RDW 13.9 % (11.5-15.5); WBC 6.9 k/uL (3.8-10.6)
[2023-09-19 05:25] LABS: ABG Base Excess 8.7 mmol/L; ABG HCO3 33 mmol/L (21-25); ABG Oxygen Saturation 95.4 % (94-97); ABG PCO2 51 mmHg (35-45); ABG PH 7.42 (7.35-7.45); ABG PO2 70 mmHg (83-108); ABG TCO2 35 mmol/L (19-24); Allen Test Performed? Yes
[2023-09-19 06:11] LABS: Glucose,Whole Blood 106 mg/dL (70-110)
--- NOTE | 2023-09-19 07:35 | P.PN ---
Subjective Progress Note Date: 09/19/23 Principal diagnosis: Respiratory failure, methamphetamine toxicity. Patient is a 38-year-old white male with past medical history significant for polysubstance abuse. He is currently intubated mechanical ventilator and unable to provide any information. After reviewing ER records, the patient presented yesterday morning after snorting an unknown substance, possibly thought to be Ativan. He was noted to be hypertensive and tachycardic in the emergency room. He was having uncontrollable shaking with associated anxiety, and soon he became agitated. He was given multiple doses of Ativan, total of 28 mg total. He then became drowsy and had difficulty protecting his airway. Patient was intubated for airway support. Postintubation the patient did become hypotensive. He was given a total of 4.5 L normal saline bolus followed by low-dose norepinephrine, which is currently on hold. A central line was inserted by the ER physician. On my evaluation, patient remains in trauma bay 1. Postintubation chest x-ray shows the endotracheal tube 4.1 cm above the carole. No acute cardiopulmonary process/disease. Most recent ABG show a PaO2 of 94, pCO2 of 39, pH of 7.34. This was done on ventilator settings of assist-control, respiratory rate 18, tidal volume 500, FiO2 50%, PEEP of 5. He is currently sedated on propofol which is infusing at 50 mcg/kg/min. He is breathing slightly above set rate. Current blood pressure is stable. Vasopressors on hold. Normal saline infusing at 130 MLS per hour. Most recent CBC on arrival shows some mild leukocytosis with a WBC count of 12.3, otherwise unremarkable. Most recent BMP from yesterday: Sodium 142, potassium 5.2, chloride 114, serum bicarb 14, BUN 41, creatinine 1.46, glucose 119. CK level 591. There is an acute kidney injury. Suspect some component of rhabdomyolysis. lactic acid level 1.3. Urine drug sc reen was positive for amphetamines, methamphetamines, and marijuana. EtOH level less than 10. Currently awaiting a bed in the intensive care unit. On today's evaluation of 09/17/2023, the patient remains intubated on the mechanical ventilator. He is very sensitive to sedation holidays the patient gets very agitated and restless and he tried to jump out of bed once off sedation. This morning, he is calm and comfortable on propofol running at 50 mcg/kg/min and the patient is also on fentanyl at 2 mcg/kg/h. The patient remains on the mechanical ventilator. The patient remains on assist-control mode and the patient is currently at the rate of 18, tidal volume of 500, FiO2 of 50% with a PEEP of 5. The blood gas from today shows a pH of 7.38 with a pCO2 of 38 and pO2 of 82 and a follow-up chest x-ray that was done today showed a limited right lower lobe pulmonary infiltrate/small effusion on the left. Orotracheal tube is in a good location. The patient is showing improvement in CPK level and the rectal mass is improving. BUN is at 40 with a creatinine of 0.6 and a sodium levels of 138. CPK level is down to 1463. AST is 268, ALT 233, and the calcium level is at 7.7. Albumin is at 2.9. WBC count of 9.9 with a hemoglobin of 11.6. He is afebrile at this point in time. Is on IV Rocephin as an empiric antibiotic coverage covering for potential aspiration. No pressors for now. On today's evaluation of 09/18/2023, the patient remains quite agitated. An attempt was done to wean off the sedation and the patient became extremely agitated, was not following any commands trying to reach out to and became very asynchronous with mechanical ventilator. As such, the trial was aborted. Meanwhile, the patient has developed a pneumonia of the right lower lobe which could be potentially aspiration in nature. The sputum culture was positive for MSSA and the patient is currently on IV Zosyn. He is currently on propofol running at 75 mcg/kg/min and fentanyl at 2 mcg/kg/h. He is also requiring Zyprexa to control his agitation. He is on assist-control mode with rate of 18, tidal volume of 500, FiO2 40% with a PEEP of 5. Tmax was 102. The pH is at 7.37 with a pCO2 of 46 and pO2 of 97. Chest x-ray shows a lower lobe consolidation on the right. He is on tube feed with vital 1.2 at the rate of 44 cc an hour. Fluid balance +1.6 L over the past 24 hours and the patient is on normal saline at rate of 75 cc an hour. The blood work from today shows a WBC count of 7.4 with a hemoglobin of 12. BUN is at 8 with a creatinine of 0.6. Sodium levels at 136, LFTs are improving compared to yesterday. Progress note dated September 19, 2023. This is a 38-year-old male who was seen today in room 267. The patient has a history of methamphetamine toxicity, and, was intubated in the emergency department, for airway protection. He remains on the mechanical ventilator. Settings include volume assist-control, rate 18, tidal volume 500, FiO2 40%, PEEP of 5. Blood gases show pO2 of 70, pCO2 of 51, pH is 7.42. The patient is on saline at 75 cc an hour, propofol at 50 mcg/kg/min, and fentanyl at 2 mcg/kg/h. The patient is getting vital AF at 56 cc an hour, which is goal. Additional labs include a white count 6.9, hemoglobin 11.2, hematocrit 35.2, platelet count 276,000. Sodium 141, potassium 4, chlorides 107, CO2 30, BUN 7, creatinine 0.50. Glucose is 106. Calcium 8.1. Albumin 2.7. Sputum from September 14 was positive for Staphylococcus aureus. Chest x-ray shows relatively clear lung balbuena. The patient continues on Ancef. Objective - Vital Signs Vital signs: Vital Signs Temp 99.2 F 09/19/23 04:00 Pulse 81 09/19/23 07:00 Resp 2 L 09/19/23 07:00 BP 128/70 09/19/23 07:00 Pulse Ox 97 09/19/23 07:00 FiO2 40 09/19/23 04:00 Intake & Output 09/18/23 09/19/23 09/19/23 18:59 06:59 18:59 Intake Total 8403.551 4243.812 131 Output Total 2119 1999 100 Balance -121.948 13.812 31 Weight 75.1 kg 70.9 kg Intake: IV 1000 900 75 .9NS 900 900 75 ceFAZolin 1,000 mg In 50 Sodium Chloride 0.9% 50 ml @ 100 mls/hr IVPB Q6H NATALYA Rx#:[id number] cefTRIAXone 2 gm In 50 Sodium Chloride 0.9% 50 ml @ 100 mls/hr IVPB Q24HR NATALYA Rx#:[id number] Intake, IV Titration 394.052 413.812 Amount ceFAZolin 1,000 mg In 50 Sodium Chloride 0.9% 50 ml @ 100 mls/hr IVPB Q6H NATALYA Rx#:[id number] fentaNYL (PF). 1,000 mcg 181.921 182.889 In Sodium Chloride 0.9% 80 ml @ 0.5 MCG/KG/HR 3. 629 mls/hr IV .Q24H NATALYA Rx#:[id number] propofoL 1,000 mg In 212.131 180.923 Empty Bag 1 bag @ 15 MCG/ KG/MIN 6.532 mls/hr IV . [id number] NATALYA Rx#:[id number] Tube Feeding 544 670 56 Other 60 30 Output: Urine 2120 2000 100 Other: Voiding Method Indwelling Catheter Indwelling Catheter - Exam No acute distress, sedated, with an orally placed endotracheal tube. HEENT examination is grossly unremarkable. Neck supple. Full range of motion. No adenopathy thyromegaly or neck vein distention. Cardiovascular examination reveals regular rhythm rate. S1-S2 normal. No S3 or S4. No discernible murmur noted. Heart rate 81 bpm. Lungs reveal mostly clear breath sounds. Minimal rhonchi. No wheezes or crackles. Breath sounds equal bilaterally. Saturations are 97%. Abdomen soft with bowel sounds. No masses or tenderness. Extremities are intact. No cyanosis clubbing or edema. Skin is without rash or lesion. Neurologic examination is difficult to assess, given the fact that he continues on propofol, and fentanyl. - Labs CBC & Chem 7: 09/19/23 03:36 09/19/23 03:36 Labs: Abnormal Lab Results - Last 24 Hours (Table) 09/18/23 09/19/23 09/19/23 Range/Units 11:59 00:07 03:36 RBC 3.45 L (4.30-5.90) m/uL Hgb 11.2 L (13.0-17.5) gm/dL Hct 35.2 L (39.0-53.0) % MCV 102.2 H (80.0-100.0) fL ABG pCO2 (35-45) mmHg ABG pO2 (83-108) mmHg ABG HCO3 (21-25) mmol/L ABG Total CO2 (19-24) mmol/L BUN (9-20) mg/dL Creatinine (0.66-1.25) mg/dL Glucose (74-99) mg/dL POC Glucose (mg/dL) 128 H 142 H (70-110) mg/dL Calcium (8.4-10.2) mg/dL ALT (4-49) U/L Total Protein (6.3-8.2) g/dL Albumin (3.5-5.0) g/dL 09/19/23 09/19/23 Range/Units 03:36 05:21 RBC (4.30-5.90) m/uL Hgb (13.0-17.5) gm/dL Hct (39.0-53.0) % MCV (80.0-100.0) fL ABG pCO2 51 H (35-45) mmHg ABG pO2 70 L (83-108) mmHg ABG HCO3 33 H (21-25) mmol/L ABG Total CO2 35 H (19-24) mmol/L BUN 7 L (9-20) mg/dL Creatinine 0.50 L (0.66-1.25) mg/dL Glucose 107 H (74-99) mg/dL POC Glucose (mg/dL) (70-110) mg/dL Calcium 8.1 L (8.4-10.2) mg/dL ALT 162 H (4-49) U/L Total Protein 5.0 L (6.3-8.2) g/dL Albumin 2.7 L (3.5-5.0) g/dL Microbiology - Last 24 Hours (Table) 09/15/23 10:31 Gram Stain - Final Sputum Sputum Culture - Final Staphylococcus aureus Assessment and Plan Assessment: Methamphetamine/amphetamine overdose, treated with multiple doses of Ativan in the emergency room, a total of 28 mg, became drowsy and unable to protect airway, patient was intubated for airway protection, currently on a combination of propofol and fentanyl the patient is also requiring Zyprexa to control his agitation. Sedation holiday was given and the patient failed due to excessive agitation and he was not showing reasonable neurologic recovery. He could be potentially still in withdrawals. The patient on sedation for another 24 hours. Will keep him intubated for now. Acute hypoxic/hypercapnic respiratory failure and the patient is currently on mechanical ventilator. The patient was intubated for airway protection. Subsequently, the patient developed a right lower lobe pneumonia Right lower lobe staphylococcal pneumonia with MSSA. The patient is currently on IV Rocephin. Postintubation hypotension, improved with fluid resuscitation, currently normotensive Suspect acute developing rhabdomyelosis, CPK level is improving and the patient is currently on IV fluids Acute kidney injury, likely secondary to above, improved Acute metabolic anion gap acidosis, improved Hyperkalemia, improving History of hypertension History of anxiety/depression History of polysubstance abuse Plan: Plan dated September 19, 2023. The patient continues on the mechanical ventilator. Blood gases show pO2 of 70, pCO2 of 51, pH is 7.42. The patient was admitted back on September 14. He came in with methamphetamine toxicity, and received a large amount of Ativan in the emergency department, and had to be intubated for airway protection. He continues on propofol at 50 mcg/kg/min, and fentanyl at 2 mcg/kg/h. He is getting saline at 75 cc an hour. He is also getting tube feeds, with vital AF at 56 cc an hour. We will continue to follow. The patient continues on GI DVT prophylaxis. The patient continues on Rocephin. The patient's overall prognosis remains very guarded. The patient's sedation can be slowly weaned, and the patient can be given spontaneous breathing trials. Time with Patient: Greater than 30
[2023-09-19] MEDS: CISATRACURIUM 2 MG/ML 5 ML VIAL IV ONE (09:21)
[2023-09-19] MEDS: CISATRACURIUM 200 MG in SODIUM CHLORIDE 0.9% 180 ML IV SCH (09:21)
--- NOTE | 2023-09-19 09:22 | XR ---
EXAMINATION TYPE: XR chest 1V portable DATE OF EXAM: 09/19/2023 5:41 AM CLINICAL INDICATION:Male, 38 years old with history of vent; [facility] COMPARISON: Chest radiograph from one day prior. TECHNIQUE: XR chest 1V portable Frontal view of the chest. FINDINGS: FINDINGS: Lungs/Pleura: Improved aeration of the right lower lobe airspace opacities. There is no evidence of p leural effusion, left focal consolidation, or pneumothorax. Pulmonary vascularity: Unremarkable. Heart/mediastinum: Cardiomediastinal silhouette is unremarkable. Musculoskeletal: No acute osseous pathology. Other findings: None Lines/Tubes: Endotracheal tube with distal tip 5.2 cm above the carole. Nasogastric tube with its distal tip and side-port projecting under the diaphragm. IMPRESSION: 1. Improved aeration of the right lower lobe airspace opacities. 2. Support tubes in appropriate position.
[2023-09-19 11:31] LABS: Glucose,Whole Blood 123 mg/dL (70-110)
[2023-09-19] MEDS: ARTIFICIAL TEARS-HYPROMELLOSE DROPS 15 ML BTL BOTH EYES SCH (11:47)
--- NOTE | 2023-09-19 14:45 | P.PN ---
Subjective Progress Note Date: 09/19/23 Pt has no new complaints. He was asynchronus with the vent due to agitation, and was started on nimbex this AM by critical care. WBC resolved - 6.9. General: intubated, sedated HEENT: normocephalic, atraumatic, no tracheal deviation Respiratory: symmetric chest rise, no cyanosis, ventilator dependent CVS: perfusing all extremities, no distal gangrene, no pitting edema GI: soft, ND : no SPT, no CVAT, mendosa is present Neuro: sedated Hospital course: Patient is a 38-year-old male with history of high blood pressure, GERD, intervenous drug use, tobacco dependency, and polysubstance abuse who initially presented to the emergency department with "uncontrollable shaking for 1 hour prior to arrival after masturbating" per ED triage record. Patient reports a history of methamphetamine, alcohol, and marijuana use. He had told the ER that his last meth use was 1 week ago but that he use pot yesterday. At the time of arrival the patient was able to answer questions and follow commands. On arrival patient was tachycardic with a pulse of 131 and hypertensive with a blood pressure of 149/101. Initial laboratory analysis included CBC, CMP, creatine kinase, and urinalysis which were remarkable for white blood cell count 12.3, potassium 5.8, carbon dioxide 21 with anion gap of 17, BUN 29, calcium 10.98, creatinine kinase 591. Urine drug screen was positive for methamphetamines and marijuana due to shaking and agitation in the emergency department he received a total of 28 mg of Ativan. He then became sedated and ultimately required intubation. During that process he became mildly hypotensive and Levophed was initiated and a right groin central line was placed. Arrangements were made for admission to ICU. Critical care was consulted. Patient was started on normal saline at 130 cc/h. His CK continued to elevate. He had some difficulty with sedation. He developed fevers and suputm culture confirmed MSSA pneumonia. Assessment/Plan: Adverse reaction to methamphetamine Toxic metabolic encephalopathy -Currently requiring nimbex, fentanyl and propofol drip to maintain sedation -Patient receiving Zyprexa 5 mg IM 3 times daily as needed for agitation -Thiamine 100 mg daily and folic acid 1 mg daily based on history of alcohol dependency - EEG without epileptform activity MSSA Pneumonia - cefazolin 1 gram IVPB q6h D # 3 of abx Rhabdomyolysis,improved Transaminitis, improving -Suspect secondary to methamphetamine use -Transaminitis is likely secondary to rhabdo -Continue with normal saline at 130 cc/h - Repeat CMP in AM Anion gap metabolic acidosis, resolved Hypercalcemia, resolved Hyperkalemia, resolved Intractable tremors, resolved [place], resolved DVT prophylaxis: Heparin SC Anticipated discharge date: Pending Clinical Course Anticipated discharge place: Pending Clinical Course Objective - Vital Signs Vital signs: Vital Signs Temp 98.9 F 09/19/23 12:30 Pulse 80 09/19/23 13:00 Resp 18 09/19/23 13:00 BP 117/62 09/19/23 13:00 Pulse Ox 97 09/19/23 13:00 FiO2 40 09/19/23 13:00 Intake & Output 09/18/23 09/19/23 09/19/23 18:59 06:59 18:59 Intake Total 8194.956 6551.812 1094.042 Output Total 2119 2000 1150 Balance -121.948 113.812 -55.958 Weight 75.1 kg 70.9 kg Intake: IV 1000 900 575 .9NS 900 900 525 ceFAZolin 1,000 mg In 50 50 Sodium Chloride 0.9% 50 ml @ 100 mls/hr IVPB Q6H NAT[facility]YA Rx#:[id number] cefTRIAXone 2 gm In 50 Sodium Chloride 0.9% 50 ml @ 100 mls/hr IVPB Q24HR NATALYA Rx#:[id number] Intake, IV Titration 394.052 513.812 127.042 Amount ceFAZolin 1,000 mg In 50 Sodium Chloride 0.9% 50 ml @ 100 mls/hr IVPB Q6H NATALYA Rx#:[id number] fentaNYL (PF). 1,000 mcg 181.921 182.889 97.976 In Sodium Chloride 0.9% 80 ml @ 0.5 MCG/KG/HR 3. 629 mls/hr IV .Q24H NATALYA Rx#:[id number] propofoL 1,000 mg In 212.131 280.923 29.066 Empty Bag 1 bag @ 15 MCG/ KG/MIN 6.532 mls/hr IV . [id number] NATALYA Rx#:[id number] Tube Feeding 544 670 392 Other 60 30 Output: Urine 2120 2000 1150 Other: Voiding Method Indwelling Catheter Indwelling Catheter - Labs CBC & Chem 7: 09/19/23 03:36 09/19/23 03:36 Labs: Abnormal Lab Results - Last 24 Hours (Table) 09/19/23 09/19/23 09/19/23 Range/Units 00:07 03:36 03:36 RBC 3.45 L (4.30-5.90) m/uL Hgb 11.2 L (13.0-17.5) gm/dL Hct 35.2 L (39.0-53.0) % MCV 102.2 H (80.0-100.0) fL ABG pCO2 (35-45) mmHg ABG pO2 (83-108) mmHg ABG HCO3 (21-25) mmol/L ABG Total CO2 (19-24) mmol/L BUN 7 L (9-20) mg/dL Creatinine 0.50 L (0.66-1.25) mg/dL Glucose 107 H (74-99) mg/dL POC Glucose (mg/dL) 142 H (70-110) mg/dL Calcium 8.1 L (8.4-10.2) mg/dL ALT 162 H (4-49) U/L Total Protein 5.0 L (6.3-8.2) g/dL Albumin 2.7 L (3.5-5.0) g/dL 09/19/23 09/19/23 Range/Units 05:21 11:29 RBC (4.30-5.90) m/uL Hgb (13.0-17.5) gm/dL Hct (39.0-53.0) % MCV (80.0-100.0) fL ABG pCO2 51 H (35-45) mmHg ABG pO2 70 L (83-108) mmHg ABG HCO3 33 H (21-25) mmol/L ABG Total CO2 35 H (19-24) mmol/L BUN (9-20) mg/dL Creatinine (0.66-1.25) mg/dL Glucose (74-99) mg/dL POC Glucose (mg/dL) 123 H (70-110) mg/dL Calcium (8.4-10.2) mg/dL ALT (4-49) U/L Total Protein (6.3-8.2) g/dL Albumin (3.5-5.0) g/dL
[2023-09-19] MEDS ORDERED: LORazepam 1 MG/0.5 ML VIAL IV PRN (17:02)
[2023-09-19] MEDS: DEXMEDETOMIDINE/0.9% NACL(PMX) 400 MCG in EMPTY BAG 1 BAG IV SCH (20:07)
--- NOTE | 2023-09-19 21:11 | XR ---
Abdomen HISTORY: Swallowed foreign body. COMPARISON: None TECHNIQUE: 2 supine views of the abdomen were obtained. FINDINGS: The bowel gas pattern is nonspecific and there is no evidence of obstruction. There is a right femora l catheter the tip of which is probably similarly within the distal IVC. There is no radiopaque foreign body. No are no suspicious abdominal or pelvic calcifications. The oss eous structures are intact. IMPRESSION: 1. No radiopaque foreign body. 2. Nonspecific bowel gas pattern.
[2023-09-19] MEDS: LORazepam 1 MG/0.5 ML VIAL IV PRN (21:24)
[2023-09-19] MEDS: hydrALAZINE HCL 20 MG/ML 1 ML VIAL IVP PRN (21:26)
[2023-09-19] MEDS: ONDANSETRON 4 MG/2 ML VIAL IVP PRN (22:40)
[2023-09-20 08:14] LABS: HCT 39.4 % (39.0-53.0); HGB 12.9 gm/dL (13.0-17.5); MCH 32.4 pg (25.0-35.0); MCHC 32.7 g/dL (31.0-37.0); MCV 99.1 fL (80.0-100.0); Mean Platelet Volume 6.6; Platelet Count 382 k/uL (150-450); RBC 3.97 m/uL (4.30-5.90); RDW 12.9 % (11.5-15.5); WBC 11.1 k/uL (3.8-10.6)
[2023-09-20 08:34] LABS: African American GFR (CKD) >90 (>60 ml/min/1.73 sqM); Anion Gap 8 mmol/L; Blood Urea Nitrogen 10 mg/dL (9-20); Calcium 8.8 mg/dL (8.4-10.2); Carbon Dioxide 26 mmol/L (22-30); Chloride 104 mmol/L (98-107); Glucose 128 mg/dL (74-99); Non-African American GFR(CKD) >90 (>60 ml/min/1.73 sqM); Potassium 3.9 mmol/L (3.5-5.1); Sodium 138 mmol/L (137-145)
[2023-09-20] MEDS: IPRATROPIUM-ALBUTEROL 3 ML NEB INHALATION SCH (08:48)
[2023-09-20] MEDS: lisinopriL 10 MG TAB PO SCH (08:55)
[2023-09-20] MEDS: buPROPion XL 150 MG TAB.ER.24H PO SCH (11:08)
--- NOTE | 2023-09-20 14:10 | XR ---
EXAMINATION TYPE: XR chest 1V DATE OF EXAM: 09/20/2023 1:59 PM CLINICAL INDICATION:Male, 38 years old with history of pneumonia; COMPARISON: Chest radiograph from one day prior. TECHNIQUE: XR chest 1V Frontal view of the chest. FINDINGS: Lungs/Pleura: There is no evidence of pleural effusion, focal consolidation, or pneumothorax. Pulmonary vascularity: Unremarkable. Heart/mediastinum: Cardiomediastinal silhouette is unremarkable. Musculoskeletal: No acute osseous pathology. Other findings: None Lines/Tubes: Interval removal of the endotracheal tube. Interval removal of the enteric tube, IMPRESSION: Extubation without airspace consolidation visualized.
--- NOTE | 2023-09-20 14:12 | P.PN ---
Subjective Progress Note Date: 09/20/23 Patient is a 38-year-old white male with past medical history significant for polysubstance abuse. He is currently intubated mechanical ventilator and unable to provide any information. After reviewing ER records, the patient presented yesterday morning after snorting an unknown substance, possibly thought to be Ativan. He was noted to be hypertensive and tachycardic in the emergency room. He was having uncontrollable shaking with associated anxiety, and soon he became agitated. He was given multiple doses of Ativan, total of 28 mg total. He then became drowsy and had difficulty protecting his airway. Patient was intubated for airway support. Postintubation the patient did become hypotensive. He was given a total of 4.5 L normal saline bolus followed by low-dose norepinephrine, which is currently on hold. A central line was inserted by the ER physician. On my evaluation, patient remains in trauma bay 1. Postintubation chest x-ray shows the endotracheal tube 4.1 cm above the carole. No acute cardiopulmonary process/disease. Most recent ABG show a PaO2 of 94, pCO2 of 39, pH of 7.34. This was done on ventilator settings of assist-control, respiratory rate 18, tidal volume 500, FiO2 50%, PEEP of 5. He is currently sedated on propofol which is infusing at 50 mcg/kg/min. He is breathing slightly above set rate. Current blood pressure is stable. Vasopressors on hold. Normal saline infusing at 130 MLS per hour. Most recent CBC on arrival shows some mild leukocytosis wi th a WBC count of 12.3, otherwise unremarkable. Most recent BMP from yesterday: Sodium 142, potassium 5.2, chloride 114, serum bicarb 14, BUN 41, creatinine 1.46, glucose 119. CK level 591. There is an acute kidney injury. Suspect some component of rhabdomyolysis. lactic acid level 1.3. Urine drug screen was positive for amphetamines, methamphetamines, and marijuana. EtOH level less than 10. Currently awaiting a bed in the intensive care unit. On today's evaluation of 09/17/2023, the patient remains intubated on the mechanical ventilator. He is very sensitive to sedation holidays the patient gets very agitated and restless and he tried to jump out of bed once off sedation. This morning, he is calm and comfortable on propofol running at 50 mcg/kg/min and the patient is also on fentanyl at 2 mcg/kg/h. The patient remains on the mechanical ventilator. The patient remains on assist-control mode and the patient is currently at the rate of 18, tidal volume of 500, FiO2 of 50% with a PEEP of 5. The blood gas from today shows a pH of 7.38 with a pCO2 of 38 and pO2 of 82 and a follow-up chest x-ray that was done today showed a limited right lower lobe pulmonary infiltrate/small effusion on the left. Orotracheal tube is in a good location. The patient is showing improvement in CPK level and the rectal mass is improving. BUN is at 40 with a creatinine of 0.6 and a sodium levels of 138. CPK level is down to 1463. AST is 268, ALT 233, and the calcium level is at 7.7. Albumin is at 2.9. WBC count of 9.9 with a hemoglobin of 11.6. He is afebrile at this point in time. Is on IV Rocephin as an empiric antibiotic coverage covering for potential aspiration. No pressors for now. On today's evaluation of 09/18/2023, the patient remains quite agitated. An attempt was done to wean off the sedation and the patient became extremely agitated, was not following any commands trying to reach out to and became very asynchronous with mechanical ventilator. As such, the trial was aborted. Meanwhile, the patient has developed a pneumonia of the right lower lobe which could be potentially aspiration in nature. The sputum culture was positive for MSSA and the patient is currently on IV Zosyn. He is currently on propofol running at 75 mcg/kg/min and fentanyl at 2 mcg/kg/h. He is also requiring Zyprexa to control his agitation. He is on assist-control mode with rate of 18, tidal volume of 500, FiO2 40% with a PEEP of 5. Tmax was 102. The pH is at 7.37 with a pCO2 of 46 and pO2 of 97. Chest x-ray shows a lower lobe consolidation on the right. He is on tube feed with vital 1.2 at the rate of 44 cc an hour. Fluid balance +1.6 L over the past 24 hours and the patient is on normal saline at rate of 75 cc an hour. The blood work from today shows a WBC count of 7.4 with a hemoglobin of 12. BUN is at 8 with a creatinine of 0.6. Sodium levels at 136, LFTs are improving compared to yesterday. On 09/20/2023, the patient is being seen for a follow-up. The patient is currently doing well on room air oxygen. No respiratory difficulties. The patient was extubated yesterday. Denies having any specific complaints. A repeat chest x-ray was done today and it shows interval clearing of the right lower lobe pulmonary infiltrate. The patient remains on IV cefazolin regarding MSSA cultured in the sputum. No agitation. No restlessness. Adequate mentation. Blood work was reviewed with a WBC count of 11 hemoglobin 12.9, BUN is 10 with a creatinine of 0.56 and sodium levels at 138. No focal neurological deficits. No chest pain. Objective - Vital Signs Vital signs: Vital Signs Temp 98.5 F 09/20/23 08:00 Pulse 88 09/20/23 10:00 Resp 4 L 09/20/23 10:00 BP 144/105 09/20/23 09:00 Pulse Ox 94 L 09/20/23 08:00 FiO2 40 09/19/23 16:00 Intake & Output 09/19/23 09/20/23 09/20/23 18:59 06:59 18:59 Intake Total 4755.567 3468 Output Total 1725 4950 350 Balance -79.958 -1025 -350 Weight 71.7 kg Intake: IV 950 925 .9NS 900 825 ceFAZolin 1,000 mg In 50 100 Sodium Chloride 0.9% 50 ml @ 100 mls/hr IVPB Q6H NATALYA Rx#:[id number] Intake, IV Titration 303.042 Amount Cisatracurium 200 mg In 19.427 Sodium Chloride 0.9% 180 ml @ 1 MCG/KG/MIN 4.254 mls/hr IV .Q24H NATALYA Rx#: [id number] fentaNYL (PF). 1,000 mcg 183.615 In Sodium Chloride 0.9% 80 ml @ 0.5 MCG/KG/HR 3. 629 mls/hr IV .Q24H NATALYA Rx#:[id number] propofoL 1,000 mg In 100.000 Empty Bag 1 bag @ 15 MCG/ KG/MIN 6.532 mls/hr IV . [id number] NATALYA Rx#:[id number] Oral 3000 Tube Feeding 392 Output: Urine 7613 7974 350 Other: Voiding Method Indwelling Catheter Indwelling Catheter Toilet Urinal # Voids 1 # Bowel Movements 1 - Exam GENERAL EXAM: Sedated, 38-year-old white male, currently on room air oxygen, awake and alert HEAD: Normocephalic and atraumatic EYES: Normal reaction of pupils, equal size. NOSE: Clear with pink turbinates. THROAT: No erythema or exudates. NECK: No masses, no JVD. CHEST: No chest wall deformity. LUNGS: Equal air entry with no crackles, wheeze, rhonchi or dullness. ABDOMEN: No hepatosplenomegaly, active bowel sounds, no guarding or rigidity. SPINE: No scoliosis or deformity SKIN: No rashes CENTRAL NERVOUS SYSTEM: Neurologically, the patient is awake and alert and the patient does not have any focal neurological deficit. Cranial nerves are essentially intact. EXTREMITIES: There is no peripheral edema, clubbing, or cyanosis. Peripheral pulses are intact. - Labs CBC & Chem 7: 09/20/23 07:48 09/20/23 07:48 Labs: Abnormal Lab Results - Last 24 Hours (Table) 09/19/23 09/20/23 09/20/23 Range/Units 11:29 07:48 07:48 WBC 11.1 H (3.8-10.6) k/uL RBC 3.97 L (4.30-5.90) m/uL Hgb 12.9 L (13.0-17.5) gm/dL Creatinine 0.56 L (0.66-1.25) mg/dL Glucose 128 H (74-99) mg/dL POC Glucose (mg/dL) 123 H (70-110) mg/dL Assessment and Plan Assessment: methamphetamine/amphetamine overdose, recovered and the patient is currently extubated on room air oxygen Acute hypoxic/hypercapnic respiratory failure, recovered and the patient is currently on room air oxygen Right lower lobe staphylococcal pneumonia with MSSA. Chest x-ray from today shows improvement of the right lower lobe pulmonary infiltrate and the patient is currently on IV cefazolin Postintubation hypotension, improved with fluid resuscitation, currently normotensive Suspect acute developing rhabdomyelosis, CPK level is improving and the patient is currently on IV fluids Acute kidney injury, likely secondary to above, improved Acute metabolic anion gap acidosis, improved Hyperkalemia, improving History of hypertension History of anxiety/depression History of polysubstance abuse Plan: Patient is currently on room air oxygen and hemodynamically stable Will obtain a psychiatric consultation Continue IV cefazolin and switch this patient to oral antibiotics with He 4 hours and chest x-ray finding shows improvement the right lower lobe pulm infiltrates Restart Wellbutrin CPK level improved Continue IV fluids Manage electrolyte imbalance Transferred out of the intensive care unit was seen by psychiatry.
[2023-09-20 14:45] VITALS: BMI 24.0
--- NOTE | 2023-09-20 15:03 | P.CN ---
Psychiatric Consult - . 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 REASON FOR REFERRAL: Psychiatry was consulted for "suicidal ideation" HISTORY OF PRESENT ILLNESS: The patient presented to the hospital initially for "uncontrollable shaking" and also masturbating. Patient has a history of depression, polysubstance abuse including methamphetamine marijuana alcohol. Patient required several milligrams of Ativan and also required intubation and ICU admission. Patient's creatinine kinase is elevated, he was found to have rhabdomyolysis and transaminitis. Patient had a positive drug screen for amphetamines methamphetamine and THC. Patient was also placed on Precedex. He was started on Wellbutrin at the primary team. He was agreeable to be seen today. He had a soft tone of voice, appeared to be fairly depressed and anxious. He states that he was "trying to get help" and states that he was trying to go to rehab however got a DUI on Saturday. States that he spoke with the [facility] worker prior to this. Claims that he "cannot stop using". He states that he was feeling very depressed and having suicidal thoughts, states that he went ahead and used speed and gave himself more than his usual dose and attempt to end his life. Claims that he started shaking and was brought into the hospital. Claims that he feels hopeless, worthless and still very depressed, he was tearful at times when talking about his mental health condition. States that he was doing fairly after being discharged from the mental health unit last however stopped taking his medications and began using substances again. At this time patient denies any homical ideations, intent or plan. He is endorsing passive suicidal thoughts, no plan. Patient denies any auditory, visual hallucinations and denies any paranoia or delusions. Patients admits to using alcohol about 4-6 tall boys per day of beer, states that he smokes cigarettes, THC, uses speed and meth regularly. PAST PSYCHIATRIC HISTORY: Patient has a a history of depressive disorder, polysubstance abuse, alcohol use.. Patient was previously on Invega, Zoloft and ReVia. He claims that he was following up with [facility] however only seen the nurse practitioner once. He has a showcase maker through [facility]. Patient's last psychiatric hospitalization was in February 2023. Claims that he attempted to cut himself in a suicide attempt years ago. PAST MEDICAL HISTORY: As per medical H&P ALLERGIES: as per EMR. CHEMICAL DEPENDENCY HISTORY: as per HPI. FAMILY PSYCHIATRIC/SUBSTANCE USE HISTORY: Claims that his mother has depression SOCIAL HISTORY: Patient was born and raised in [facility]. 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 He states that he is currently homeless, he has 1 daughter. He claims that he has had several charges in the past and has gone to penitentiary, including DUI, domestic violence and charges related to [employer] firearms. MENTAL STATUS EXAM: General Appearance: Patient appears to be stated age is alert, attempts to be cooperative. Thin, shaved head, several tattoos, patient appears to have poor hygiene and grooming wearing hospital gown with fair eye contact. Behavior: Patient is calmly lying in bed without any agitated behavior. Tearful at times, soft tone of voice. Speech: Patient's speech is fluent and nonpressured. Soft tone. Mood/Affect: Patient reports their mood is "depressed and anxious", affect is congruent, tearful Suicidality/Homicidality: Patient denies any homicidal ideations, claims that he is having suicidal thoughts, no plan. Perceptions: Patient denies any visual hallucinations and denies any auditory hallucinations Though content/process: There is no evidence of any delusional thought content and thought process is linear and goal-directed. Focused on his treatment, apologetic, endorsing hopelessness Memory and concentration: AOX3, grossly intact for the purposes of this session. Can spell "WORLD" backwards Judgment and insight: Poor IMPRESSIONS: Suicide attempt by overdose of drugs Depressive disorder unspecified, rule out bipolar depression versus substance- induced depressive disorder versus major depressive disorder Methamphetamine use disorder Opiate use disorder Cannabis use disorder Alcohol use disorder Nicotine dependence Homelessness PLAN: -At this time patient DOES meet criteria for inpatient psychiatric admission. -Would recommend the following medication changes/additions: Will discontinue Wellbutrin at this time and hold off on psychiatric medications until patient is transferred to the mental health unit and medically cleared. -Continue 1:1 sitter for safety until patient is transferred to the mental health unit -Cannot leave AMA at this time. Patient will need a petition and certification if attempting to leave AMA. -Patient is agreeable to go to [facility] for rehab after he is discharged from the hospital -When medically stable, patient is eligible for transfer to a psych bed when available. -Communicated plan to patient's nurse and showcase maker -Psychiatry will sign off at this time -Please contact with any questions. 09/20/23 14:55
--- NOTE | 2023-09-20 15:19 | P.PN ---
Subjective Progress Note Date: 09/20/23 Pt has no new complaints. He self extubated yesterday, and is stable at this time. General: intubated, sedated HEENT: normocephalic, atraumatic, no tracheal deviation Respiratory: symmetric chest rise, no cyanosis, ventilator dependent CVS: perfusing all extremities, no distal gangrene, no pitting edema GI: soft, ND : no SPT, no CVAT, mendosa is present Neuro: sedated Hospital course: Patient is a 38-year-old male with history of high blood pressure, GERD, intervenous drug use, tobacco dependency, and polysubstance abuse who initially presented to the emergency department with "uncontrollable shaking for 1 hour prior to arrival after masturbating" per ED triage record. Patient reports a history of methamphetamine, alcohol, and marijuana use. He had told the ER that his last meth use was 1 week ago but that he use pot yesterday. At the time of arrival the patient was able to answer questions and follow commands. On arrival patient was tachycardic with a pulse of 131 and hypertensive with a blood pressure of 149/101. Initial laboratory analysis included CBC, CMP, creatine kinase, and urinalysis which were remarkable for white blood cell count 12.3, potassium 5.8, carbon dioxide 21 with anion gap of 17, BUN 29, calcium 10.98, creatinine kinase 591. Urine drug screen was positive for methamphetamines and marijuana due to shaking and agitation in the emergency department he received a total of 28 mg of Ativan. He then became sedated and ultimately required intubation. During that process he became mildly hypotensive and Levophed was initiated and a right groin central line was placed. Arrangements were made for admission to ICU. Critical care was consulted. Patient was started on normal saline at 130 cc/h. His CK continued to elevate. He had some difficulty with sedation. He developed fevers and suputm culture confirmed MSSA pneumonia. Assessment/Plan: Adverse reaction to methamphetamine Toxic metabolic encephalopathy -Currently off of nimbex, ordered precedex for agitation, has not required -Patient receiving Zyprexa 5 mg IM 3 times daily as needed for agitation -Thiamine 100 mg daily and folic acid 1 mg daily based on history of alcohol dependency - EEG without epileptform activity MSSA Pneumonia - cefazolin 1 gram IVPB q6h D # 4 of abx Rhabdomyolysis,improved Transaminitis, improving -Suspect secondary to methamphetamine use -Transaminitis is likely secondary to rhabdo -Continue with normal saline at 130 cc/h Anion gap metabolic acidosis, resolved Hypercalcemia, resolved Hyperkalemia, resolved Intractable tremors, resolved [place], resolved DVT prophylaxis: Heparin SC Anticipated discharge date: Pending Clinical Course Anticipated discharge place: Pending Clinical Course Objective - Vital Signs Vital signs: Vital Signs Temp 98.5 F 09/20/23 08:00 Pulse 96 09/20/23 12:00 Resp 18 09/20/23 12:00 BP 156/98 09/20/23 12:00 Pulse Ox 98 09/20/23 12:00 FiO2 40 09/19/23 16:00 Intake & Output 09/19/23 09/20/23 09/20/23 18:59 06:59 18:59 Intake Total 8422.593 6368 Output Total 1725 4950 350 Balance -79.958 -1025 -350 Weight 71.7 kg 71.7 kg Intake: IV 950 925 .9NS 900 825 ceFAZolin 1,000 mg In 50 100 Sodium Chloride 0.9% 50 ml @ 100 mls/hr IVPB Q6H NATALYA Rx#:[id number] Intake, IV Titration 303.042 Amount Cisatracurium 200 mg In 19.427 Sodium Chloride 0.9% 180 ml @ 1 MCG/KG/MIN 4.254 mls/hr IV .Q24H NATALYA Rx#: [id number] fentaNYL (PF). 1,000 mcg 183.615 In Sodium Chloride 0.9% 80 ml @ 0.5 MCG/KG/HR 3. 629 mls/hr IV .Q24H NATALYA Rx#:[id number] propofoL 1,000 mg In 100.000 Empty Bag 1 bag @ 15 MCG/ KG/MIN 6.532 mls/hr IV . [id number] NATALYA Rx#:[id number] Oral 3000 Tube Feeding 392 Output: Urine 1725 4950 350 Other: Voiding Method Indwelling Catheter Indwelling Catheter Toilet Urinal # Voids 1 # Bowel Movements 1 - Labs CBC & Chem 7: 09/20/23 07:48 09/20/23 07:48 Labs: Abnormal Lab Results - Last 24 Hours (Table) 09/20/23 09/20/23 Range/Units 07:48 07:48 WBC 11.1 H (3.8-10.6) k/uL RBC 3.97 L (4.30-5.90) m/uL Hgb 12.9 L (13.0-17.5) gm/dL Creatinine 0.56 L (0.66-1.25) mg/dL Glucose 128 H (74-99) mg/dL
[2023-09-20] MEDS: NICOTINE 14MG/24HR PATCH TRANSDERM SCH (15:28)
[2023-09-20] MEDS: MELATONIN 5 MG TABLET PO PRN (21:07)
[2023-09-21] MEDS: LORazepam 1 MG/0.5 ML VIAL IV PRN (01:42)
--- NOTE | 2023-09-21 13:56 | P.PN ---
Subjective Progress Note Date: 09/21/23 Pt has no new complaints. General: intubated, sedated HEENT: normocephalic, atraumatic, no tracheal deviation Respiratory: symmetric chest rise, no cyanosis, ventilator dependent CVS: perfusing all extremities, no distal gangrene, no pitting edema GI: soft, ND : no SPT, no CVAT, mendosa is present Neuro: sedated Hospital course: Patient is a 38-year-old male with history of high blood pressure, GERD, intervenous drug use, tobacco dependency, and polysubstance abuse who initially presented to the emergency department with "uncontrollable shaking for 1 hour prior to arrival after masturbating" per ED triage record. Patient reports a history of methamphetamine, alcohol, and marijuana use. He had told the ER that his last meth use was 1 week ago but that he use pot yesterday. At the time of arrival the patient was able to answer questions and follow commands. On arrival patient was tachycardic with a pulse of 131 and hypertensive with a blood pressure of 149/101. Initial laboratory analysis included CBC, CMP, creatine kinase, and urinalysis which were remarkable for white blood cell count 12.3, potassium 5.8, carbon dioxide 21 with anion gap of 17, BUN 29, calcium 10.98, creatinine kinase 591. Urine drug screen was positive for methamphetamines and marijuana due to shaking and agitation in the emergency department he received a total of 28 mg of Ativan. He then became sedated and ultimately required intubation. During that process he became mildly hypotensive and Levophed was initiated and a right groin central line was placed. Arrangements were made for admission to ICU. Critical care was consulted. Patient was started on normal saline at 130 cc/h. His CK continued to elevate. He had some difficulty with sedation. He developed fevers and suputm culture confirmed MSSA pneumonia. Assessment/Plan: Adverse reaction to methamphetamine Toxic metabolic encephalopathy -Patient receiving Zyprexa 5 mg IM 3 times daily as needed for agitation -Thiamine 100 mg daily and folic acid 1 mg daily based on history of alcohol dependency - EEG without epileptform activity MSSA Pneumonia - cefazolin 1 gram IVPB q6h D # 5 of abx Rhabdomyolysis,improved Transaminitis, improving -Suspect secondary to methamphetamine use -Transaminitis is likely secondary to rhabdo -Continue with normal saline at 130 cc/h Anion gap metabolic acidosis, resolved Hypercalcemia, resolved Hyperkalemia, resolved Intractable tremors, resolved [place], resolved DVT prophylaxis: Heparin SC Anticipated discharge date: Pending Clinical Course Anticipated discharge place: Pending Clinical Course Objective - Vital Signs Vital signs: Vital Signs Temp 98.5 F 09/21/23 07:46 Pulse 76 09/21/23 12:16 Resp 17 09/21/23 07:46 BP 165/110 09/21/23 07:46 Pulse Ox 97 09/21/23 07:46 FiO2 40 09/19/23 16:00 Intake & Output 09/20/23 09/21/23 09/21/23 18:59 06:59 18:59 Output Total 350 Balance -350 Weight 71.7 kg Output: Urine 350 Other: Voiding Method Toilet Toilet Toilet Urinal Urinal Urinal # Voids 2 1 - Labs CBC & Chem 7: 09/20/23 07:48 09/20/23 07:48
--- NOTE | 2023-09-21 14:41 | P.PN ---
Subjective Progress Note Date: 09/21/23 Patient is a 38-year-old white male with past medical history significant for polysubstance abuse. He is currently intubated mechanical ventilator and unable to provide any information. After reviewing ER records, the patient presented yesterday morning after snorting an unknown substance, possibly thought to be Ativan. He was noted to be hypertensive and tachycardic in the emergency room. He was having uncontrollable shaking with associated anxiety, and soon he became agitated. He was given multiple doses of Ativan, total of 28 mg total. He then became drowsy and had difficulty protecting his airway. Patient was intubated for airway support. Postintubation the patient did become hypotensive. He was given a total of 4.5 L normal saline bolus followed by low-dose norepinephrine, which is currently on hold. A central line was inserted by the ER physician. On my evaluation, patient remains in trauma bay 1. Postintubation chest x-ray shows the endotracheal tube 4.1 cm above the carole. No acute cardiopulmonary process/disease. Most recent ABG show a PaO2 of 94, pCO2 of 39, pH of 7.34. This was done on ventilator settings of assist-control, respiratory rate 18, tidal volume 500, FiO2 50%, PEEP of 5. He is currently sedated on propofol which is infusing at 50 mcg/kg/min. He is breathing slightly above set rate. Current blood pressure is stable. Vasopressors on hold. Normal saline infusing at 130 MLS per hour. Most recent CBC on arrival shows some mild leukocytosis wi th a WBC count of 12.3, otherwise unremarkable. Most recent BMP from yesterday: Sodium 142, potassium 5.2, chloride 114, serum bicarb 14, BUN 41, creatinine 1.46, glucose 119. CK level 591. There is an acute kidney injury. Suspect some component of rhabdomyolysis. lactic acid level 1.3. Urine drug screen was positive for amphetamines, methamphetamines, and marijuana. EtOH level less than 10. Currently awaiting a bed in the intensive care unit. On today's evaluation of 09/17/2023, the patient remains intubated on the mechanical ventilator. He is very sensitive to sedation holidays the patient gets very agitated and restless and he tried to jump out of bed once off sedation. This morning, he is calm and comfortable on propofol running at 50 mcg/kg/min and the patient is also on fentanyl at 2 mcg/kg/h. The patient remains on the mechanical ventilator. The patient remains on assist-control mode and the patient is currently at the rate of 18, tidal volume of 500, FiO2 of 50% with a PEEP of 5. The blood gas from today shows a pH of 7.38 with a pCO2 of 38 and pO2 of 82 and a follow-up chest x-ray that was done today showed a limited right lower lobe pulmonary infiltrate/small effusion on the left. Orotracheal tube is in a good location. The patient is showing improvement in CPK level and the rectal mass is improving. BUN is at 40 with a creatinine of 0.6 and a sodium levels of 138. CPK level is down to 1463. AST is 268, ALT 233, and the calcium level is at 7.7. Albumin is at 2.9. WBC count of 9.9 with a hemoglobin of 11.6. He is afebrile at this point in time. Is on IV Rocephin as an empiric antibiotic coverage covering for potential aspiration. No pressors for now. On today's evaluation of 09/18/2023, the patient remains quite agitated. An attempt was done to wean off the sedation and the patient became extremely agitated, was not following any commands trying to reach out to and became very asynchronous with mechanical ventilator. As such, the trial was aborted. Meanwhile, the patient has developed a pneumonia of the right lower lobe which could be potentially aspiration in nature. The sputum culture was positive for MSSA and the patient is currently on IV Zosyn. He is currently on propofol running at 75 mcg/kg/min and fentanyl at 2 mcg/kg/h. He is also requiring Zyprexa to control his agitation. He is on assist-control mode with rate of 18, tidal volume of 500, FiO2 40% with a PEEP of 5. Tmax was 102. The pH is at 7.37 with a pCO2 of 46 and pO2 of 97. Chest x-ray shows a lower lobe consolidation on the right. He is on tube feed with vital 1.2 at the rate of 44 cc an hour. Fluid balance +1.6 L over the past 24 hours and the patient is on normal saline at rate of 75 cc an hour. The blood work from today shows a WBC count of 7.4 with a hemoglobin of 12. BUN is at 8 with a creatinine of 0.6. Sodium levels at 136, LFTs are improving compared to yesterday. On 09/20/2023, the patient is being seen for a follow-up. The patient is currently doing well on room air oxygen. No respiratory difficulties. The patient was extubated yesterday. Denies having any specific complaints. A repeat chest x-ray was done today and it shows interval clearing of the right lower lobe pulmonary infiltrate. The patient remains on IV cefazolin regarding MSSA cultured in the sputum. No agitation. No restlessness. Adequate mentation. Blood work was reviewed with a WBC count of 11 hemoglobin 12.9, BUN is 10 with a creatinine of 0.56 and sodium levels at 138. No focal neurological deficits. No chest pain. On 09/21/2023, patient is being seen for a follow-up. The patient extubated the patient is currently outside the intensive care unit. Patient is doing well for now. Seen by psychiatry and the patient is being considered for inpatient psychiatric treatment. No new complaints otherwise for now. Blood work from yesterday was within normal limits. Right lower lobe pneumonia is also treated and the patient remains on IV cefazolin. Repeat chest x-ray from yesterday showed clearing of the right lower lobe pulmonary infiltration. Objective - Vital Signs Vital signs: Vital Signs Temp 98.5 F 09/21/23 07:46 Pulse 76 09/21/23 12:16 Resp 17 09/21/23 07:46 BP 165/110 09/21/23 07:46 Pulse Ox 97 09/21/23 07:46 FiO2 40 09/19/23 16:00 Intake & Output 09/20/23 09/21/23 09/21/23 18:59 06:59 18:59 Output Total 350 Balance -350 Weight 71.7 kg Output: Urine 350 Other: Voiding Method Toilet Toilet Toilet Urinal Urinal Urinal # Voids 2 1 - Exam GENERAL EXAM: Sedated, 38-year-old white male, currently on room air oxygen, awake and alert HEAD: Normocephalic and atraumatic EYES: Normal reaction of pupils, equal size. NOSE: Clear with pink turbinates. THROAT: No erythema or exudates. NECK: No masses, no JVD. CHEST: No chest wall deformity. LUNGS: Equal air entry with no crackles, wheeze, rhonchi or dullness. ABDOMEN: No hepatosplenomegaly, active bowel sounds, no guarding or rigidity. SPINE: No scoliosis or deformity SKIN: No rashes CENTRAL NERVOUS SYSTEM: Neurologically, the patient is awake and alert and the patient does not have any focal neurological deficit. Cranial nerves are essentially intact. EXTREMITIES: There is no peripheral edema, clubbing, or cyanosis. Peripheral pulses are intact. - Labs CBC & Chem 7: 09/20/23 07:48 09/20/23 07:48 Assessment and Plan Assessment: methamphetamine/amphetamine overdose, recovered and the patient is currently extubated on room air oxygen Acute hypoxic/hypercapnic respiratory failure, recovered and the patient is currently on room air oxygen Right lower lobe staphylococcal pneumonia with MSSA. Chest x-ray from today shows improvement of the right lower lobe pulmonary infiltrate and the patient is currently on IV cefazolin Postintubation hypotension, improved with fluid resuscitation, currently normotensive Suspect acute developing rhabdomyelosis, CPK level is improving and the patient is currently on IV fluids Acute kidney injury, likely secondary to above, improved Acute metabolic anion gap acidosis, improved Hyperkalemia, improving History of hypertension History of anxiety/depression History of polysubstance abuse Plan: Patient is currently on room air oxygen and hemodynamically stable The patient psychiatric treatment Switch to oral antibiotics and completed total of 7-day course of antibiotics, suggest Augmentin CPK level improved Pulmonary critical care services will sign off
[2023-09-22] MEDS: BENZONATATE 100 MG CAP PO PRN (00:21)
[2023-09-22] MEDS: guaiFENesin-DM 100-10MG/5ML 10 ML CUP PO ONE (06:17)
--- NOTE | 2023-09-22 12:01 | P.DS ---
Providers Date of admission: 09/15/23 11:17 Expected date of discharge: 09/22/23 Attending physician: Corina Iniguez DO Consults: 09/15/23 11:17 Consult Physician Stat Consulting Provider: Alexey Felton Consult Reason/Comments: critical care Do you want consulting provider notified?: Yes 09/19/23 23:13 Consult Physician Routine Consulting Provider: Lorenzo Hoskins Consult Reason/Comments: suicidal ideation Do you want consulting provider notified?: Yes Primary care physician: Stated None Hospital Course: Assessment: Adverse reaction to methamphetamine Toxic metabolic encephalopathy MSSA Pneumonia Rhabdomyolysis,improved Transaminitis, improving Anion gap metabolic acidosis, resolved Hypercalcemia, resolved Hyperkalemia, resolved Intractable tremors, resolved [place], resolved General: intubated, sedated HEENT: normocephalic, atraumatic, no tracheal deviation Respiratory: symmetric chest rise, no cyanosis, ventilator dependent CVS: perfusing all extremities, no distal gangrene, no pitting edema GI: soft, ND : no SPT, no CVAT, mendosa is present Neuro: sedated Hospital course: Patient is a 38-year-old male with history of high blood pressure, GERD, intervenous drug use, tobacco dependency, and polysubstance abuse who initially presented to the emergency department with "uncontrollable shaking for 1 hour prior to arrival after masturbating" per ED triage record. Patient reports a history of methamphetamine, alcohol, and marijuana use. He had told the ER that his last meth use was 1 week ago but that he use pot yesterday. At the time of arrival the patient was able to answer questions and follow commands. On arrival patient was tachycardic with a pulse of 131 and hypertensive with a blood pressure of 149/101. Initial laboratory analysis included CBC, CMP, creatine kinase, and urinalysis which were remarkable for white blood cell count 12.3, potassium 5.8, carbon dioxide 21 with anion gap of 17, BUN 29, calcium 10.98, creatinine kinase 591. Urine drug screen was positive for methamphetamines and marijuana due to shaking and agitation in the emergency d epartment he received a total of 28 mg of Ativan. He then became sedated and ultimately required intubation. During that process he became mildly hypotensive and Levophed was initiated and a right groin central line was placed. Arrangements were made for admission to ICU. Critical care was consulted. Patient was started on normal saline at 130 cc/h. His CK continued to elevate. He had some difficulty with sedation. He developed fevers and suputm culture confirmed MSSA pneumonia. Pt did self extubate himself and afterward was doing well. He was on day 6 of abx on day of discharge to MHU. He will need one additional day of abx with augmentin to complete course. I spent 34 min coordinating this discharge Patient Condition at Discharge: Good Plan - Discharge Summary New Discharge Prescriptions: No Action lisinopriL [Prinivil] 10 mg PO DAILY #60 tab traZODone HCL [Desyrel] 100 mg PO HS buPROPion XL [Wellbutrin XL] 150 mg PO DAILY Discharge Medication List lisinopriL [Prinivil] 10 mg PO DAILY #60 tab 07/18/23 [Rx] buPROPion XL [Wellbutrin XL] 150 mg PO DAILY 09/15/23 [History] traZODone HCL [Desyrel] 100 mg PO HS 09/15/23 [History] Follow up Appointment(s)/Referral(s): None,Stated [Primary Care Provider] - 1-2 days
[2023-09-22 14:25] VITALS: BP 130/88; PULSE 81; RESP 18; TEMP 98.7
== END 2023-09-22 14:29 | DRG 812 ==
LOC: EC 06:45 → 2SICU 11:17 → 6NMEDSUR 09-20 18:41 → UNDODISIN 09-22 14:26
PROVIDERS: ADMIT Internal Medicine; ATTEND Internal Medicine
PROC: 3E043XZ Introduction of Vasopressor into Central Vein, Percutaneous Approach (ICD-10-PCS; principal; 2023-09-15)
PROC: 02HV33Z Insertion of Infusion Device into Superior Vena Cava, Percutaneous Approach (ICD-10-PCS; principal; 2023-09-15)
PROC: 5A1955Z Respiratory Ventilation, Greater than 96 Consecutive Hours (ICD-10-PCS; 2023-09-15)
PROC: 0BH17EZ Insertion of Endotracheal Airway into Trachea, Via Natural or Artificial Opening (ICD-10-PCS; 2023-09-15)
PROC: 3E0G76Z Introduction of Nutritional Substance into Upper GI, Via Natural or Artificial Opening (ICD-10-PCS; 2023-09-16)
PROC: 0DH67UZ Insertion of Feeding Device into Stomach, Via Natural or Artificial Opening (ICD-10-PCS; 2023-09-16)
DX: T43.651A Poisoning by methamphetamines accidental (unintentional), initial encounter (principal); G92.8 Other toxic encephalopathy; J96.02 Acute respiratory failure with hypercapnia; J96.01 Acute respiratory failure with hypoxia; J15.211 Pneumonia due to Methicillin susceptible Staphylococcus aureus; M62.82 Rhabdomyolysis; E83.52 Hypercalcemia; E87.5 Hyperkalemia; F11.10 Opioid abuse, uncomplicated; F12.10 Cannabis abuse, uncomplicated; F15.90 Other stimulant use, unspecified, uncomplicated; F17.210 Nicotine dependence, cigarettes, uncomplicated; F29 Unspecified psychosis not due to a substance or known physiological condition; E87.20 Acidosis, unspecified; I10 Essential (primary) hypertension; E87.29 Other acidosis; K21.9 Gastro-esophageal reflux disease without esophagitis; N17.9 Acute kidney failure, unspecified; F31.9 Bipolar disorder, unspecified; I95.9 Hypotension, unspecified; R00.0 Tachycardia, unspecified; R45.1 Restlessness and agitation; F43.10 Post-traumatic stress disorder, unspecified; F90.9 Attention-deficit hyperactivity disorder, unspecified type; D72.829 Elevated white blood cell count, unspecified; G25.2 Other specified forms of tremor; R74.01 Elevation of levels of liver transaminase levels; R94.01 Abnormal electroencephalogram [EEG]; Z28.21 Immunization not carried out because of patient refusal; Z59.00 Homelessness unspecified; Z79.899 Other long term (current) drug therapy; Z81.8 Family history of other mental and behavioral disorders; Z91.128 Patient's intentional underdosing of medication regimen for other reason; Z91.51 Personal history of suicidal behavior; Z11.52 Encounter for screening for COVID-19; Z71.3 Dietary counseling and surveillance
CPT/HCPCS: 31500; 36415; 36556; 36600; 51702; 71045; 74018; 80048; 80053; 80143; 80179; 80306; 80320; 81001; 82550; 82805; 83605; 83735; 83930; 84100; 85025; 85027; 87070; 87077; 87186; 87205; 87635; 93005; 94002; 94003; 94640; 95822; 96361; 96365; 96366; 96372; 96375; 96376; 99291

== ENCOUNTER 2023-09-22 12:46 | Inpatient (IN) | payer BC, MEDICAID ==
[2023-09-22] MEDS ORDERED: LORazepam 1 MG TAB PO PRN (13:13)
[2023-09-22] MEDS ORDERED: MAG HYDROX/AL HYDROX/SIMETH 355 ML BOTTLE PO PRN (13:13)
[2023-09-22] MEDS ORDERED: MAGNESIUM HYDROXIDE 2,400 MG/30 ML CUP PO PRN (13:13)
[2023-09-22] MEDS ORDERED: OLANZapine 10 MG VIAL IM PRN (13:13)
[2023-09-22] MEDS: OLANZapine 5 MG TAB PO PRN (18:17)
[2023-09-22] MEDS: LORazepam 1 MG TAB PO PRN (18:17)
[2023-09-22] MEDS: IBUPROFEN 600 MG TAB PO PRN (18:18)
[2023-09-22] MEDS ORDERED: HALOPERIDOL LACTATE 5 MG/ML 1 ML VIAL IM PRN (19:18)
[2023-09-22] MEDS: AMOXIC-POT CLAV 875-125MG 1 EACH TAB PO SCH (20:09)
[2023-09-22] MEDS: cloNIDine HCL 0.1 MG TAB PO SCH (20:09)
[2023-09-22] MEDS: clonazePAM 0.5 MG TAB PO SCH (20:43)
[2023-09-22] MEDS: clonazePAM 1 MG TAB PO PRN (20:48)
[2023-09-23] MEDS: haloperidoL 5 MG TAB PO PRN (07:47)
[2023-09-23] MEDS: PANTOPRAZOLE 40 MG TABLET PO SCH (07:48)
[2023-09-23] MEDS: THIAMINE 100 MG TAB PO SCH (07:48)
[2023-09-23] MEDS: lisinopriL 10 MG TAB PO SCH (07:48)
[2023-09-23] MEDS: FOLIC ACID 1 MG TAB PO SCH (07:48)
[2023-09-23] MEDS ORDERED: THIAMINE 100 MG TAB PO SCH (09:00)
[2023-09-23] MEDS ORDERED: FOLIC ACID 1 MG TAB PO SCH (09:00)
[2023-09-23] MEDS: NICOTINE 14MG/24HR PATCH TRANSDERM SCH (09:33)
--- NOTE | 2023-09-23 12:39 | P.HP ---
Psychiatric H&P - . 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 HPI: Patient presented to the hospital on 09/14. He was admitted medically, prior to coming to the [facility]. 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 Admits to not sleeping for "a few weeks." PTSD hx from "a lot of shelter. So, if you come to wake me up just say my name please don't touch me when I'm sleeping." Pt informed of the unit process/guidelines and hospital zero tolerance for aggression and pt agreeable. Staff updated of this information. Pt tearfully admits to this hospitalization is related to a true suicide attempt by snorting more than usual amount of speed. Pt was administered Ativan 28mg in ER and was then intubated on 09/14. Per RENE Kim, report the pt did self extubate on 09/19. Pt tearful and agreeable to sign himself in [facility] for mental health treatment. He is currently homeless but states, "I won't be when I get sober." Pt desires rehab and mental health treatment as he does meet criteria for in pt tx AEB depressed mood and suicide attempt." Today, patient states that he does not really know how he is feeling. He just woke up this afternoon. He states his anxiety is not present currently, but he just woke up. He states that he has been irritable. He claims that he slept well last night, and prior to last night, he was awake for a year straight. The patient is minimizing his drug use, and need for treatment. Construction And Maintenance Inspector did speak with patient about attending rehab, he states his is trying to get him into a [facility]ha based treatment program in the . Patient is agreeable to rehab. Patient denies any suicidal or homicidal ideations intent or plan. At this time patient denies any auditory or visual hallucinations. Patient denies any flight of ideas racing thoughts and increased in goal directed behavior. Patient admits to using [methamphetamine, amphetamines, and marijuana. PAST PSYCHIATRIC HISTORY: Patient has a a history of depressive disorder, polysubstance abuse, alcohol use.. Patient was previously on Invega, Zoloft and ReVia. He claims that he was following up with [facility] however only seen the nurse practitioner once. He has a rn case manager through [facility]. Patient's last psychiatric hospitalization was in February 2023. Claims that he attempted to cut himself in a suicide attempt years ago. PMH:As per ER note ALLERGIES: as per EMR CHEMICAL DEPENDENCY HISTORY: as per HPI FAMILY PSYCHIATRIC/SUBSTANCE USE HISTORY: Claims that his mother has depression SOCIAL HISTORY: Patient was born and raised in [facility]. 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 He states that he is currently homeless, he has 1 daughter. He claims that he has had several charges in the past and has gone to penitentiary, including DUI, domestic violence and charges related to firearms. MENTAL STATUS EXAM: General Appearance: Patient appears to be stated age is alert, attempts to be cooperative. Thin, shaved head, several tattoos, patient appears to have poor hygiene and grooming wearing hospital gown with fair eye contact. Behavior: Patient is calmly lying in bed without any agitated behavior. Speech: Patient's speech is fluent and nonpressured. Soft tone. Mood/Affect: Patient reports their mood is "anxious and irritated", affect is congruent, Suicidality/Homicidality: Patient denies any homicidal ideations,denies having current suicidal thoughts, no plan. Perceptions: Patient denies any visual hallucinations and denies any auditory hallucinations Though content/process: There is no evidence of any delusional thought content and thought process is linear and goal-directed. Focused on his treatment, Memory and concentration: AOX3, grossly intact for the purposes of this session. Can spell "WORLD" backwards Judgment and insight: Poor STRENGTHS/WEAKNESSES: strength is that patient is resilient. Weakness is that patient has poor judgment and is impulsive INTELLECT: average IMPRESSIONS: Suicide attempt by overdose of drugs Depressive disorder unspecified, rule out bipolar depression versus substance- induced depressive disorder versus major depressive disorder Methamphetamine use disorder Opiate use disorder Cannabis use disorder Alcohol use disorder Nicotine dependence Homelessness PLAN: -Patient is admitted under voluntary status to MHU for stabilization of psychiatric symptoms and safety. Patient is on an order exp 03/02/24, and has medication consent and is placed in patient's chart. -Medications : Will start patient on invega 3mg qhs for mood stabilization/psychosis, zoloft 50mg daily for mood/anxiety, visteral [id number] prn for anxiety, klonopin 1mg tid prn for anxiety -Ativan [and Haldol] PRN for agitation/aggression -Started thiamine, MVM for etoh use] -Patient was counselled on substance abuse and desired to cut back on use -Patient was informed of the risks, benefits and side effects of the medication and patient verbally consented to taking the medications. -Internal Medicine consult to perform medical evaluation and physical. -NRT - nicotine patch -SW on board for discharge planning. Encourage patient to participate in groups to work on coping skills. Patient agreeable to call to get screened for rehab. 09/23/23 12:15 09/23/23 12:32
[2023-09-23] MEDS: SERTRALINE 50 MG TAB PO SCH (12:44)
[2023-09-23 13:20] LABS: ALT 83 U/L (4-49); AST 23 U/L (17-59); Albumin 3.4 g/dL (3.5-5.0); Alkaline Phosphatase 48 U/L (38-126); Bilirubin, Delta 0.2 mg/dL (0.0-0.2); Bilirubin,Unconjugated 0.2 mg/dL (0.0-1.1); Total Bilirubin 0.4 mg/dL (0.2-1.3); Total Protein 5.9 g/dL (6.3-8.2)
[2023-09-23 15:23] VITALS: BMI 23.3
[2023-09-23 17:37] LABS: Chol/HDL Ratio 6.76 Ratio; LDL Cholesterol,Calculated 144.2 mg/dL (0.0-131.0)
[2023-09-23 21:08] LABS: Glucose,Whole Blood 109 mg/dL (70-110)
[2023-09-23] MEDS: PALIPERIDONE 3 MG TAB.ER.24 PO SCH (21:19)
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
[2023-09-24] MEDS: ALBUTEROL HFA INHALER INHALATION PRN (10:20)
[2023-09-24] MEDS: hydrOXYzine pamoate 25 MG CAP PO PRN (10:33)
[2023-09-24] MEDS: BENZONATATE 100 MG CAP PO PRN (10:33)
[2023-09-24] MEDS: guaiFENesin-DM 100-10MG/5ML 10 ML CUP PO PRN (10:34)
--- NOTE | 2023-09-24 11:17 | P.PN ---
Progress Note - Text Progress Note Date: 09/24/23 Interval History: Patient was seen sitting in a chair at the nurses station and was directable and agreeable to speak with keno writer/runner in the graves. Patient complaining of spasms in his throat, probably due to patient extubating himself while in the ICU. Interior Design Professor will check xray, and see if any damage was done to the patients throat. Patient did sign an AMA that is up on 09/25 at 1705. Patient states he does not want to follow everyone elses plan, he has his own plan that involves going to [place] to stay with his daughters mother, and then going to the to spend a year in a [place] based treatment facility..Patient lacks insight for the need for treatment, and his mental illness, and the severity of his drug abuse. Patient stated that he feels guilty, because of the care he is receiving, because he hasn't cared for himself the past 6 months. Patient claims that he slept ok, and that his appetite is good. Patient is going to groups, and interacting with peers on the unit. At this time patient denies any suicidal or homicidal ideations, intent or plan. Patient denies any auditory, visual hallucinations and denies any paranoia or delusions. Patient denies any side effects from the medications and has been compliant with meds. MENTAL STATUS EXAM: General Appearance: Patient appears to be stated age is alert, attempts to be cooperative. Thin, shaved head, several tattoos, patient appears to have poor hygiene and grooming wearing hospital gown with fair eye contact. Behavior: Patient is calmly sitting without any agitated behavior. Minimizing need for treatment, Attention seeking Speech: Patient's speech is fluent and nonpressured. Soft tone. Rambling at times Mood/Affect: Patient reports their mood is "ok", affect is congruent, Suicidality/Homicidality: Patient denies any homicidal ideations,denies having current suicidal thoughts, no plan. Perceptions: Patient denies any visual hallucinations and denies any auditory hallucinations Though content/process: There is no evidence of any delusional thought content and thought process is linear and goal-directed. Rambling. Memory and concentration: AOX3, grossly intact for the purposes of this session. Judgment and insight: Poor, lacks insight. Improving mildly IMPRESSIONS: Suicide attempt by overdose of drugs Depressive disorder unspecified, rule out bipolar depression versus substance- induced depressive disorder versus major depressive disorder Methamphetamine use disorder Opiate use disorder Cannabis use disorder Alcohol use disorder Nicotine dependence Homelessness PLAN: -Patient is admitted under voluntary status to MHU for stabilization of psychiatric symptoms and safety. Patient is on an order exp 03/02/24, and has medication consent and is placed in patient's chart. -Medications : Increase invega 6 mg qhs for mood stabilization/psychosis, zoloft 50mg daily for mood/anxiety, visteral [id number] prn for anxiety, klonopin 1mg tid prn for anxiety -Ativan and Haldol PRN for agitation/aggression -NRT - nicotine patch -SW on board for discharge planning. Encourage patient to participate in groups to work on coping skills. Patient refusing rehab locally that we can provide for him, states [facility]. Will possibly look at discharge end of the week likely Saturday.
[2023-09-24] MEDS: NICOTINE GUM (POLACRILEX) 2 MG GUM BUCCAL PRN (18:50)
[2023-09-24] MEDS: PALIPERIDONE 6 MG TAB.ER.24 PO SCH (20:15)
[2023-09-25 03:16] LABS: Glucose,Whole Blood 82 mg/dL (70-110)
--- NOTE | 2023-09-25 10:11 | P.PN ---
Progress Note - Text Progress Note Date: 09/25/23 Interval History: Patient was seen in his room and was directable and agreeable to speak with wr iter at the bedside. Patient states that he is feeling quite tired this morning. He states that his mood is up and down. He spoke of several rehab facilities that he got information for. He stated he is most interested in [facility] in [place]. Patient did sign an AMA that is up on 09/25 at 1705. Patient lacks insight for the need for treatment, and his mental illness, and the severity of his drug abuse, but this is mildly improving. Patient is going to groups, and interacting with peers on the unit. At this time patient denies any suicidal or homicidal ideations, intent or plan. Patient denies any auditory, visual hallucinations and denies any paranoia or delusions. Patient denies any side effects from the medications and has been compliant with meds. MENTAL STATUS EXAM: General Appearance: Patient appears to be stated age is alert, attempts to be cooperative.Thin, shaved head, several tattoos, patient appears to have improving hygiene and grooming wearing hospital gown with fair eye contact. Behavior: Patient is calmly sitting without any agitated behavior. Minimizing need for treatment, Attention seeking Speech: Patient's speech is fluent and nonpressured. Soft tone. Rambling Mood/Affect: Patient reports their mood is "up and down", affect is congruent, Suicidality/Homicidality: Patient denies any homicidal ideations,denies having current suicidal thoughts, no plan. Perceptions: Patient denies any visual hallucinations and denies any auditory hallucinations Though content/process: There is no evidence of any delusional thought content and thought process is linear and goal-directed. Rambling. Memory and concentration: AOX3, grossly intact for the purposes of this session. Judgment and insight: Improving mildly IMPRESSIONS: Suicide attempt by overdose of drugs Depressive disorder unspecified, rule out bipolar depression versus substance- induced depressive disorder versus major depressive disorder Methamphetamine use disorder Opiate use disorder Cannabis use disorder Alcohol use disorder Nicotine dependence Homelessness PLAN: -Patient is admitted under voluntary status to MHU for stabilization of psychiatric symptoms and safety. Patient is on an order exp 03/02/24, and has medication consent and is placed in patient's chart. -Medications : invega 6 mg qhs for mood stabilization/psychosis, zoloft 50mg daily for mood/anxiety, visteral [id number] prn for anxiety, klonopin 1mg tid prn for anxiety -Ativan and Haldol PRN for agitation/aggression -NRT - nicotine patch -SW on board for discharge planning. Encourage patient to participate in groups to work on coping skills. Patient refusing rehab locally that we can provide for him, states he wants to [facility] in [place] and do treatment up there. Will possibly look at discharge end of the week likely Saturday.
[2023-09-26 06:43] VITALS: TEMP 98.1
[2023-09-26 08:19] VITALS: BP 139/89; PULSE 110; RESP 20
--- NOTE | 2023-09-26 10:20 | P.DS ---
Providers Date of admission: 09/22/23 14:30 Expected date of discharge: 09/26/23 Attending physician: Lorenzo Hoskins MD Consults: 09/22/23 13:13 Consult Physician Routine Consulting Provider: Monae Physician Consult Reason/Comments: Medical Management Do you want consulting provider notified?: Yes Primary care physician: Stated None - Discharge Diagnosis(es) (1) Suicide attempt by drug overdose Current Visit: Yes Status: Acute Priority: High (2) Depressive disorder Current Visit: Yes Status: Acute Priority: High (3) Methamphetamine use disorder, moderate Current Visit: No Status: Acute Priority: High (4) Opioid use disorder Current Visit: Yes Status: Acute Priority: Medium (5) Cannabis use disorder Current Visit: Yes Status: Acute Priority: Medium (6) Alcohol use disorder Current Visit: Yes Status: Acute Priority: Medium (7) Nicotine dependence Current Visit: Yes Status: Acute Priority: Low (8) Homelessness Current Visit: No Status: Acute Priority: Low Hospital Course: Admission HPI: Admission note was completed by advertising copywriter "Patient presented to the hospital on 09/14. He was admitted medically, prior to coming to the [facility]. As per EPS note, "Pt easily awakens to advertising copywriter. Admits to not sleeping for "a few weeks." PTSD hx from "a lot of mcfp. So, if you come to wake me up just say my name please don't touch me when I'm sleeping." Pt informed of the unit process/guidelines an hospital zero tolerance for aggression and pt agreeable. Staff updated of this information. Pt tearfully admits to this hospitalization is related to a true suicide attempt by snorting more than usual amount of speed. Pt was administered Ativan 28mg in ER and was then intubated on 09/14. Per RENE Kim, report the pt did self extubate on 09/19. Pt tearful and agreeable to sign himself in [facility] for mental health treatment. He is currently homeless but states, "I won't be when I get sober." Pt desires rehab and mental health treatment as he does meet criteria for in pt tx AEB depressed mood and suicide attempt."Today, patient states that he does not really know how he is feeling. He just woke up this afternoon. He states his anxiety is not present currently, but he just woke up. He states that he has been irritable. He claims that he slept well last night, and prior to last night, he was awake for a year straight. The patient is minimizing his drug use, and need for treatment. Communications Station Manager did speak with patient about attending rehab, he states his is trying to get him into a [facility] based treatment program in the . Patient is agreeable to rehab. Patient denies any suicidal or homicidal ideations intent or plan. At this time patient denies any auditory or visual hallucinations. Patient denies any flight of ideas racing thoughts and increased in goal directed behavior. Patient admits to using methamphetamine, amphetamines, and marijuana." Hospital course: Upon admission to the unit patient was admitted involuntarily on an active court order, currently expires on 03/02/2024. Patient got along well with other patients on the unit and followed unit protocol. Patient was compliant with the medications and denied any side effects throughout hospital course. Patient was started on Invega p.o. 6 mg nightly for mood stabilization/psychosis, Zoloft 50 mg daily for mood/anxiety, Vistaril 50 mg daily as needed for anxiety, continued on Klonopin as needed for anxiety. Patient spoke of his stressors and engaged in therapy both group and individual. Patient was also seen by medical team for history and physical exam. Throughout the course of the hospitalization patient gradually improved with regards to mood, anxiety, mood lability, sleep and returned back to their baseline level of functioning. On the day of discharge patient denied any suicidal or homicidal ideations intent or plan denied any auditory or visual hallucinations. Patient endorsed wanting to live for his health and family. The patient denied any access to guns or weapons. Patient denied any paranoia and did not endorse any delusions. Patient does have a significant history of substance abuse and was counseled on abstaining from all substances including alcohol and marijuana. Patient elected to do outpatient substance use treatment program through [facility]. Patient claims that he would like to mainly do outpatient substance use treatment through [facility] however has the information for a treatment center in [place] as he will be closer to their when he is discharged. Patient was also counseled on the medications and need for regular compliance and was encouraged to follow-up with their outpatient appointment for mental health and also for primary care. Prior to discharge a family meeting will be arranged by social human services assistants to answer any questions and ensure safety upon discharge. Mental status exam: General Appearance: Patient appears to be thin, stated age is alert, pleasant, and cooperative. Patient is in no acute distress and has improved hygiene and grooming Behavior: Patient is calmly seated without any agitated behavior. Speech: Patient's speech is fluent and nonpressured. Mood/Affect: Patient reports their mood is "better", affect is congruent and euthymic. Suicidality/Homicidality: Patient denies having any suicidal or homicidal ideation intent or plan. Perceptions: Patient denies any auditory or visual hallucinations. Though content/process: There is no evidence of any delusional thought content and thought process is linear and goal-directed. Memory and concentration: AOX3, grossly intact for the purposes of this session. Can spell "WORLD" backwards correctly. Judgment and insight: Chronically poor, however has improved with guarded prognosis Impression: Suicide attempt by overdose of drugs Depressive disorder unspecified, rule out bipolar depression versus substance- induced depressive disorder versus major depressive disorder Methamphetamine use disorder Opiate use disorder Cannabis use disorder Alcohol use disorder Nicotine dependence Homelessness Plan: -Continue with discharge today as patient has improved and stabilized psychiatrically and is not currently an imminent threat to himself and/or others. Patient will remain at chronically elevated risk for harm to self and/or others due to his impulsivity and polysubstance abuse. -Continue medications: Invega p.o. 6 mg nightly for mood stabilization/psychosis, Zoloft 50 mg daily for mood/anxiety, Vistaril 50 mg as needed for anxiety, will be given a 3-day supply of Klonopin 1 mg daily as needed for anxiety. -Patient was counseled on the need for medication compliance and appropriate follow-up at mental health and also primary care for medical issues. Patient verbalized understanding and agreed. -Social work to arrange for and conduct family meeting to ensure safety upon discharge and answer any questions/concerns. Social work also to arrange for patients follow up appointments with [facility] for psychiatric care along with follow up with primary care provider. -Patient counseled on abstaining from recreational drugs and marijuana and alcohol. Was informed/educated on the adverse effects on their physical and mental health. Patient verbally agreed and understood. -Patient was instructed to return to the hospital or seek immediate medical care if their psychiatric or medical symptoms do worsen or reoccur. Allergies Allergy/AdvReac Type Severity Reaction Status Date / Time venom-honey bee Allergy Anaphylaxis Verified 09/15/23 07:02 Bee venom (honey bee) Laboratory Results POC Glucose (mg/dL) 82 mg/dL (70-110) 09/25/23 03:14 POC Glu Machine Tool Operator Alexey Carver 09/25/23 03:[address] Glu mg/dL 114 mg/dL 09/23/23 12:08 Hemoglobin A1c 5.6 % (<=6.0) 09/23/23 12:08 Total Bilirubin 0.4 mg/dL (0.2-1.3) 09/23/23 12:08 Conjugated Bilirubin 0.0 mg/dL (0.0-0.3) 09/23/23 12:08 Unconjugated Bilirubin 0.2 mg/dL (0.0-1.1) 09/23/23 12:08 Delta Bilirubin 0.2 mg/dL (0.0-0.2) 09/23/23 12:08 AST 23 U/L (17-59) 09/23/23 12:08 ALT 83 U/L (4-49) H 09/23/23 12:08 Alkaline Phosphatase 48 U/L (38-126) 09/23/23 12:08 Total Protein 5.9 g/dL (6.3-8.2) L 09/23/23 12:08 Albumin 3.4 g/dL (3.5-5.0) L 09/23/23 12:08 Triglycerides 71.50 mg/dL (0.00-149.00) 09/23/23 12:08 Cholesterol 186.00 mg/dL (0.00-200.00) 09/23/23 12:08 LDL Cholesterol, Calc 144.2 mg/dL (0.0-131.0) H 09/23/23 12:08 VLDL Cholesterol, Calc 14.30 mg/dL (5.00-40.00) 09/23/23 12:08 HDL Cholesterol 27.50 mg/dL (40.00-60.00) L 09/23/23 12:08 Cholesterol/HDL Ratio 6.76 Ratio 09/23/23 12:08 Vital Signs Temp 98.1 F 09/26/23 06:07 Pulse 110 H 05/09/24 08:08 Resp 20 09/26/23 08:08 BP 139/89 09/26/23 08:08 Pulse Ox 99 09/26/23 06:07 FiO2 Patient Condition at Discharge: Stable Plan - Discharge Summary Discharge Rx Participant: No New Discharge Prescriptions: New Nicotine 14Mg/24Hr Patch [Habitrol] 1 patch TRANSDERM DAILY 14 Days #14 patch Paliperidone [Invega] 6 mg PO HS 30 Days #30 tab clonazePAM [KlonoPIN] 1 mg PO DAILY PRN 3 Days #3 tab PRN Reason: Anxiety cloNIDine HCL [Catapres] 0.1 mg PO TID 30 Days #90 tab Nicotine Gum (Polacrilex) [Nicorette] 2 mg BUCCAL Q4HR PRN pieceofgum PRN Reason: Nicotine Cravings Pantoprazole [Protonix] 40 mg PO AC-BRKFST 30 Days #30 tab Albuterol Inhaler [Ventolin Hfa Inhaler] 2 puff INHALATION RT-QID PRN #1 each PRN Reason: Shortness Of Breath Or Wheezing hydrOXYzine pamoate [Vistaril] 50 mg PO DAILY PRN 30 Days #60 cap PRN Reason: Anxiety Sertraline [Zoloft] 50 mg PO DAILY 30 Days #30 tab Continue Thiamine [Vitamin B-1] 100 mg PO DAILY tab Folic Acid 1 mg PO DAILY tab lisinopriL [Prinivil] 10 mg PO DAILY 30 Days #30 tab Discontinued Benzonatate [Tessalon Perles] 100 mg PO TID PRN cap PRN Reason: Cough Acetaminophen Tab [Tylenol] 650 mg PO Q6HR PRN tab PRN Reason: Fever And/ Or Pain buPROPion XL [Wellbutrin XL] 150 mg PO DAILY Amoxic-Pot Clav 875-125Mg [Augmentin 875-125] 1 tab PO BID 1 Days #2 tab Nicotine 14Mg/24Hr Patch [Habitrol] 1 patch TRANSDERM DAILY patch Discharge Medication List Folic Acid 1 mg PO DAILY tab 09/22/23 [Rx] Thiamine [Vitamin B-1] 100 mg PO DAILY tab 09/22/23 [Rx] Albuterol Inhaler [Ventolin Hfa Inhaler] 2 puff INHALATION RT-QID PRN #1 each 09/26/23 [Rx] Nicotine 14Mg/24Hr Patch [Habitrol] 1 patch TRANSDERM DAILY 14 Days #14 patch 09/26/23 [Rx] Nicotine Gum (Polacrilex) [Nicorette] 2 mg BUCCAL Q4HR PRN pieceofgum 09/26/23 [Rx] Paliperidone [Invega] 6 mg PO HS 30 Days #30 tab 09/26/23 [Rx] Pantoprazole [Protonix] 40 mg PO AC-BRKFST 30 Days #30 tab 09/26/23 [Rx] Sertraline [Zoloft] 50 mg PO DAILY 30 Days #30 tab 09/26/23 [Rx] cloNIDine HCL [Catapres] 0.1 mg PO TID 30 Days #90 tab 09/26/23 [Rx] clonazePAM [KlonoPIN] 1 mg PO DAILY PRN 3 Days #3 tab 09/26/23 [Rx] hydrOXYzine pamoate [Vistaril] 50 mg PO DAILY PRN 30 Days #60 cap 09/26/23 [Rx] lisinopriL [Prinivil] 10 mg PO DAILY 30 Days #30 tab 09/26/23 [Rx] Follow up Appointment(s)/Referral(s): [facility] [Outside] - 1 Week [facility] [Outside] - 10/02/23 3:00 pm (09/30/2023 3:00PM - 4:00PM ELVIA CONNORS 10/01/2023 10:00AM - 10:30AM JANETTE TREJO ) [facility] [NON-STAFF] - 1 Week Patient Instructions/Handouts: Seizure/Epilepsy Discharge Instructions & Follow-Up, How to Stop Smoking (DC), Depression (DC) Activity/Diet/Wound Care/Special Instructions: Activity and diet as tolerated. Avoid the use of street drugs and alcohol. Take all medications as prescribed. When you need refills on your medications, please contact your medical provider and/or outpatient psychiatrist to have this done. Please go to scheduled outpatient appointment for aftercare treatment. If symptoms return or become worse, call the crisis line at and/or go to the nearest emergency room for evaluation. Pt given discharge instructions, copies of after care, Pt v/u of information. In stable condition. Aware of resources.Belongings returned to patient at discharge, see Personal Property Sheet. Discharge instructions given with verbal understanding, papers signed and copies given in discharge folder. Patient verbalized ready for discharge denying suicidal and homicidal thoughts, verbalized intent to follow up at scheduled psychiatric appointments and take prescribed medications as ordered. Discharge/Stand Alone Forms: AA Meetings [place] Discharge Disposition: HOME SELF-CARE
== END 2023-09-26 10:32 | disposition home or self-care (01) | DRG 917 ==
LOC: UNDOADMIN 14:25 → 3MHU 14:25
PROVIDERS: ADMIT Psychiatry & Neurology Psychiatry; ATTEND Psychiatry & Neurology Psychiatry
DX: T43.652A Poisoning by methamphetamines intentional self-harm, initial encounter (principal); G92.8 Other toxic encephalopathy; M62.82 Rhabdomyolysis; R45.851 Suicidal ideations; K21.9 Gastro-esophageal reflux disease without esophagitis; I10 Essential (primary) hypertension; Z79.899 Other long term (current) drug therapy; Z82.49 Family history of ischemic heart disease and other diseases of the circulatory system; F31.9 Bipolar disorder, unspecified; F43.10 Post-traumatic stress disorder, unspecified; F12.10 Cannabis abuse, uncomplicated; F90.9 Attention-deficit hyperactivity disorder, unspecified type; F10.10 Alcohol abuse, uncomplicated; F11.10 Opioid abuse, uncomplicated; F15.24 Other stimulant dependence with stimulant-induced mood disorder; Z71.41 Alcohol abuse counseling and surveillance of alcoholic; Z71.6 Tobacco abuse counseling; Z71.51 Drug abuse counseling and surveillance of drug abuser; Z91.030 Bee allergy status
CPT/HCPCS: 80061; 80076; 83036

== ENCOUNTER 2023-12-07 03:00 | Inpatient (IN) | payer BC, MEDICAID ==
[2023-12-07 06:30] LABS: Basophils # (A) 0.1 k/uL (0-0.2); Basophils % (A) 1 %; Eosinophils # (A) 0.4 k/uL (0-0.7); Eosinophils % (A) 3 %; HCT 45.9 % (39.0-53.0); HGB 15.1 gm/dL (13.0-17.5); Lymphocytes # (A) 3.3 k/uL (1.0-4.8); Lymphocytes % (A) 31 %; MCH 33.4 pg (25.0-35.0); MCV 101.3 fL (80.0-100.0); Mean Platelet Volume 6.7; Monocytes # (A) 0.8 k/uL (0-1.0); Monocytes % (A) 7 %; Neutrophils # (A) 5.9 k/uL (1.3-7.7); Neutrophils % (A) 56 %; Platelet Count 474 k/uL (150-450); RBC 4.53 m/uL (4.30-5.90); RDW 12.5 % (11.5-15.5); WBC 10.5 k/uL (3.8-10.6)
[2023-12-07 07:18] LABS: ALT 25 U/L (4-49); AST 43 U/L (17-59); African American GFR (CKD) >90 (>60 ml/min/1.73 sqM); Albumin 4.4 g/dL (3.5-5.0); Alkaline Phosphatase 47 U/L (38-126); Anion Gap 7 mmol/L; Blood Urea Nitrogen 24 mg/dL (9-20); Calcium 9.6 mg/dL (8.4-10.2); Carbon Dioxide 26 mmol/L (22-30); Chloride 106 mmol/L (98-107); Glucose 92 mg/dL (74-99); Non-African American GFR(CKD) >90 (>60 ml/min/1.73 sqM); Potassium 4.4 mmol/L (3.5-5.1); Sodium 139 mmol/L (137-145); Total Bilirubin 0.5 mg/dL (0.2-1.3); Total Protein 6.7 g/dL (6.3-8.2)
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
[2023-12-07 09:42] LABS: Acetaminophen <10.0 ug/mL; Alcohol <10 mg/dL; Salicylate <1.0 mg/dL
[2023-12-07 11:23] LABS: Amphetamine Screen,Urine Not Detected (NotDetected); Barbiturate Screen,Urine Not Detected (NotDetected); Benzodiazepines Screen,Urine Not Detected (NotDetected); Cocaine Screen,Urine Not Detected (NotDetected); Methadone Screen, Urine Not Detected (NotDetected); Opiate Screen,Urine Not Detected (NotDetected); Oxycodone Screen, Urine Not Detected (NotDetected); Phencyclidine Screen,Urine Not Detected (NotDetected); Tricyclic Antidepressant,Urine Not Detected (NotDetected); Urn Cannabinoid Scrn Detected (NotDetected)
[2023-12-07] MEDS: LORazepam 1 MG TAB PO STA (12:33)
[2023-12-07] MEDS ORDERED: MAGNESIUM HYDROXIDE 2,400 MG/30 ML CUP PO PRN (15:55)
[2023-12-07] MEDS ORDERED: LORazepam 2 MG/ML INJ IM PRN (15:55)
[2023-12-07] MEDS ORDERED: HALOPERIDOL LACTATE 5 MG/ML 1 ML VIAL IM PRN (15:55)
[2023-12-07] MEDS ORDERED: MAG HYDROX/AL HYDROX/SIMETH 355 ML BOTTLE PO PRN (15:55)
[2023-12-07] MEDS ORDERED: ACETAMINOPHEN TAB 325 MG TAB PO PRN (15:55)
[2023-12-07] MEDS ORDERED: ALBUTEROL INHALER 60 PUFF/8 GM INHALER (MHU) INHALATION PRN (16:01)
[2023-12-07] MEDS ORDERED: hydrOXYzine pamoate 25 MG CAP PO PRN (16:01)
[2023-12-07 16:28] LABS: Appearance,Urine Turbid (Clear); Bacteria,Urine Few /hpf; Bilirubin,Urine Negative (Negative); Blood,Urine Negative (Negative); Color,Urine Yellow; Glucose,Urine (UA) Negative (Negative); Ketones,Urine Trace (Negative); Leukocyte Esterase,Urine Negative (Negative); Mucus,Urine Few /hpf; Nitrite,Urine Negative (Negative); Protein,Urine Trace (Negative); Specific Gravity,Urine 1.036 (1.001-1.035); Urobilinogen,Urine <2.0 mg/dL (<2.0); WBC,Urine 2 /hpf (0-5)
[2023-12-07 16:46] VITALS: RESP 16
[2023-12-07 17:15] VITALS: TEMP 97.6
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
[2023-12-08] MEDS: PALIPERIDONE 6 MG TAB.ER.24 PO SCH (04:40)
[2023-12-08] MEDS: cloNIDine HCL 0.1 MG TAB PO SCH (04:40)
[2023-12-08] MEDS: LORazepam 1 MG TAB PO PRN (09:14)
[2023-12-08] MEDS: SERTRALINE 50 MG TAB PO SCH (09:15)
[2023-12-08] MEDS: THIAMINE 100 MG TAB PO SCH (09:15)
[2023-12-08] MEDS: FOLIC ACID 1 MG TAB PO SCH (09:15)
[2023-12-08] MEDS: NICOTINE 14MG/24HR PATCH TRANSDERM SCH (09:15)
[2023-12-08] MEDS: haloperidoL 5 MG TAB PO PRN (09:15)
[2023-12-08] MEDS: lisinopriL 10 MG TAB PO SCH (09:15)
[2023-12-08] MEDS: PANTOPRAZOLE 40 MG TABLET PO SCH (09:15)
[2023-12-08] MEDS: NICOTINE GUM (POLACRILEX) 2 MG GUM BUCCAL PRN (10:09)
[2023-12-08 12:59] LABS: Chol/HDL Ratio 2.34 Ratio; LDL Cholesterol,Calculated 62.3 mg/dL (0.0-131.0)
[2023-12-08] MEDS: diphenhydrAMINE 50 MG/ML 1 ML VIAL IM ONE (14:28)
[2023-12-08] MEDS: HALOPERIDOL LACTATE 5 MG/ML 1 ML VIAL IM STA (14:28)
--- NOTE | 2023-12-08 15:31 | P.HP ---
Psychiatric H&P - . History & Physical: Allergies Allergy/AdvReac Type Severity Reaction Status Date / Time venom-honey bee Allergy Anaphylaxis Verified 12/07/23 15:01 [bee venom (honey bee)] Vital Signs Temp 97.6 F 12/07/23 16:50 Pulse 98 12/08/23 10:00 Resp 16 12/07/23 16:50 BP 130/107 12/08/23 10:00 Pulse Ox 99 12/07/23 16:39 FiO2 Intake & Output 12/07/23 12/08/23 12/08/23 18:59 06:59 18:59 Weight 64.467 kg Laboratory Last Values WBC 10.5 k/uL (3.8-10.6) 12/07/23 06:10 RBC 4.53 m/uL (4.30-5.90) 12/07/23 06:10 Hgb 15.1 gm/dL (13.0-17.5) 12/07/23 06:10 Hct 45.9 % (39.0-53.0) 12/07/23 06:10 MCV 101.3 fL (80.0-100.0) H 12/07/23 06:10 MCH 33.4 pg (25.0-35.0) 12/07/23 06:10 MCHC 33.0 g/dL (31.0-37.0) 12/07/23 06:10 RDW 12.5 % (11.5-15.5) 12/07/23 06:10 Plt Count 474 k/uL (150-450) H 12/07/23 06:10 MPV 6.7 12/07/23 06:10 Neutrophils % 56 % 12/07/23 06:10 Lymphocytes % 31 % 12/07/23 06:10 Monocytes % 7 % 12/07/23 06:10 Eosinophils % 3 % 12/07/23 06:10 Basophils % 1 % 12/07/23 06:10 Neutrophils # 5.9 k/uL (1.3-7.7) 12/07/23 06:10 Lymphocytes # 3.3 k/uL (1.0-4.8) 12/07/23 06:10 Monocytes # 0.8 k/uL (0-1.0) 12/07/23 06:10 Eosinophils # 0.4 k/uL (0-0.7) 12/07/23 06:10 Basophils # 0.1 k/uL (0-0.2) 12/07/23 06:10 Sodium 139 mmol/L (137-145) 12/07/23 06:10 Potassium 4.4 mmol/L (3.5-5.1) 12/07/23 06:10 Chloride 106 mmol/L (98-107) 12/07/23 06:10 Carbon Dioxide 26 mmol/L (22-30) 12/07/23 06:10 Anion Gap 7 mmol/L 12/07/23 06:10 BUN 24 mg/dL (9-20) H 12/07/23 06:10 Creatinine 0.85 mg/dL (0.66-1.25) 12/07/23 06:10 Est GFR (CKD-EPI)AfAm >90 (>60 ml/min/1.73 sqM) 12/07/23 06:10 Est GFR (CKD-EPI)NonAf >90 (>60 ml/min/1.73 sqM) 12/07/23 06:10 Glucose 92 mg/dL (74-99) 12/07/23 06:[address] Glu mg/dL 108 mg/dL 12/07/23 06:10 Hemoglobin A1c 5.4 % (<=6.0) 12/07/23 06:10 Calcium 9.6 mg/dL (8.4-10.2) 12/07/23 06:10 Total Bilirubin 0.5 mg/dL (0.2-1.3) 12/07/23 06:10 AST 43 U/L (17-59) 12/07/23 06:10 ALT 25 U/L (4-49) 12/07/23 06:10 Alkaline Phosphatase 47 U/L (38-126) 12/07/23 06:10 Total Protein 6.7 g/dL (6.3-8.2) 12/07/23 06:10 Albumin 4.4 g/dL (3.5-5.0) 12/07/23 06:10 Triglycerides 101.00 mg/dL (0.00-149.00) 12/07/23 07:36 Cholesterol 144.00 mg/dL (0.00-200.00) 12/07/23 07:36 LDL Cholesterol, Calc 62.3 mg/dL (0.0-131.0) 12/07/23 07:36 VLDL Cholesterol, Calc 20.20 mg/dL (5.00-40.00) 12/07/23 07:36 HDL Cholesterol 61.50 mg/dL (40.00-60.00) H 12/07/23 07:36 Cholesterol/HDL Ratio 2.34 Ratio 12/07/23 07:36 Vitamin B12 489.0 pg/mL (200.0-944.0) 12/07/23 07:36 TSH 2.440 mIU/L (0.465-4.680) 12/07/23 07:36 Urine Color Yellow 12/07/23 07:36 Urine Appearance Turbid (Clear) 12/07/23 07:36 Urine pH 6.0 (5.0-8.0) 12/07/23 07:36 Ur Specific [place] 1.036 (1.001-1.035) H 12/07/23 07:36 Urine Protein Trace (Negative) H 12/07/23 07:36 Urine Glucose (UA) Negative (Negative) 12/07/23 07:36 Urine Ketones Trace (Negative) H 12/07/23 07:36 Urine Blood Negative (Negative) 12/07/23 07:36 Urine Nitrite Negative (Negative) 12/07/23 07:36 Urine Bilirubin Negative (Negative) 12/07/23 07:36 Urine Urobilinogen <2.0 mg/dL (<2.0) 12/07/23 07:36 Ur Leukocyte Esterase Negative (Negative) 12/07/23 07:36 Urine WBC 2 /hpf (0-5) 12/07/23 07:36 Urine Bacteria Few /hpf (None) H 12/07/23 07:36 Urine Mucus Few /hpf (None) H 12/07/23 07:36 Salicylates <1.0 mg/dL 12/07/23 07:36 Urine Opiates Screen Not Detected (NotDetected) 12/07/23 07:36 Ur Oxycodone Screen Not Detected (NotDetected) 12/07/23 07:36 Urine Methadone Screen Not Detected (NotDetected) 12/07/23 07:36 Acetaminophen <10.0 ug/mL 12/07/23 07:36 Ur Barbiturates Screen Not Detected (NotDetected) 12/07/23 07:36 U Tricyclic Antidepress Not Detected (NotDetected) 12/07/23 07:36 Ur Phencyclidine Scrn Not Detected (NotDetected) 12/07/23 07:36 Ur Amphetamines Screen Not Detected (NotDetected) 12/07/23 07:36 U Methamphetamines Scrn Detected (NotDetected) H 12/07/23 07:36 U Benzodiazepines Scrn Not Detected (NotDetected) 12/07/23 07:36 Urine Cocaine Screen Not Detected (NotDetected) 12/07/23 07:36 U Marijuana (THC) Screen Detected (NotDetected) H 12/07/23 07:36 Serum Alcohol <10 mg/dL 12/07/23 07:36 Influenza Type A (PCR) Not Detected (Not Detectd) 12/07/23 13:39 Influenza Type B (PCR) Not Detected (Not Detectd) 12/07/23 13:39 RSV (PCR) Not Detected (Not Detectd) 12/07/23 13:39 SARS-CoV-2 (PCR) Not Detected (Not Detectd) 12/07/23 13:39 IDENTIFYING DATA: Patient is a 38 year old male with a history of polysubstance use disorder HPI: patient was brought to the hospital by his parents due to concern of substance abuse. Per petition, patient was tearful, paranoid, restless, and stated that he wanted to swallow a lot of drugs" pulled the trigger" since being on the mental health unit,, patient has been very aggressive and has needed emergency medications. In the morning, patient was sedated due to the medications. Later in the day, on interview, patient stated that Depakote has helped him calm his anger significantly. He requested to be back on Depakote. PAST PSYCHIATRIC HISTORY: -polysubstance use disorder -admitted in August 2023 for suicide attempt, discharged on Invega 6 hs, clonidine 0.1 tid, Zoloft 50 -admitted in 2022 for psychosis and discharged on Invega and naltrexone PMH: HTN, macrocytosis, GERD ALLERGIES: as per EMR CHEMICAL DEPENDENCY HISTORY: Tobacco: 2 packs/day x 5 years Alcohol: " 5-6 tall boys" x 20 years Recreational drugs: Marijuana, methamphetamine, cocaine; patient unsure for how long he is using and when he last used it. FAMILY PSYCHIATRIC/SUBSTANCE USE HISTORY: mother has depression SOCIAL HISTORY: Patient was born and raised in [facility]. States that he completed his GED, worked several different jobs in the past . He claims that he has had several charges in the past and has gone to assisted, including DUI, domestic violence and charges related to firearms. MENTAL STATUS EXAM: General Appearance: Patient appears to be older than stated age is alert, attempts to be cooperative. well built shaved head, several tattoos, Behavior: agitated at times Speech: Loud Mood/Affect: agitated Suicidality/Homicidality: could not assess as interview was limited due to aggression Perceptions: not RIS Though content/process: goal directed Memory and concentration: AOX3, grossly intact for the purposes of this session Judgment and insight: Poor STRENGTHS/WEAKNESSES: strength is that patient is resilient. Weakness is that patient has poor judgment and is impulsive INTELLECT: average IMPRESSIONS: Methamphetamine use disorder Opiate use disorder Cannabis use disorder Alcohol use disorder Nicotine dependence Homelessness PLAN: -Patient is admitted under voluntary status to MHU for stabilization of psychiatric symptoms and safety. Patient is on an order exp 03/02/24 -Medications : Will start patient on invega 9mg qhs for mood stabilization/psychosis, zoloft 50mg daily for mood/anxiety, depakote 250 mg tid for mood/agitation -Ativan [and Haldol] PRN for agitation/aggression -Patient was counselled on substance abuse and desired to cut back on use -Patient was informed of the risks, benefits and side effects of the medication and patient verbally consented to taking the medications. -Internal Medicine consult to perform medical evaluation and physical. -NRT - nicotine patch -SW on board for discharge planning. Encourage patient to participate in groups to work on coping skills. Patient agreeable to call to get screened for rehab. 12/08/23 15:26 12/08/23 15:28
[2023-12-08] MEDS: DIVALPROEX 250 MG TABLET.DR PO SCH (15:32)
[2023-12-08] MEDS: PALIPERIDONE 3 MG TAB.ER.24 PO SCH (21:53)
[2023-12-09] MEDS: IBUPROFEN 600 MG TAB PO PRN (08:03)
--- NOTE | 2023-12-09 22:11 | P.PN ---
Progress Note - Text Progress Note Date: 12/09/23 Follow-up Mediation Review Chief Complaint: I dont know why I am here. Subjective: The patient noted that his parents brought him here because of uncontrollable drug use. The patient noted that he has strong craving for drugs such as methamphetamine and Cocaine. He said Wellbutrin is the only medication, which helps him, however there is questionable h/o of snorting Wellbutrin Also, excessive alcohol abuse and stimulant abuse he is a high risk for Seizures. The patient understood. And wants to be some other medication to control his aggression, rapid talking, irritability, and impulsivity. He was suggested Depakote for these symptoms. He indicated that this medication has helped and he is already on it. He then requested to change Zoloft because it does not help him. He was suggested Pristiq. He was told about alternate agents and explained the risks/benefits and side effects. The patient consented. The patient has not been attending the groups. The participation is limited. The interaction with staff and peers is limited. The patient is compliant with treatment recommendations. Leading questions: The patient admitted to Depression and Anxiety. Denied SI or HI. Denied symptoms consistent with psychosis Sleep and Appetite: Fair. Change in family/ living/job/financial/daily routine: No change. Change in medical condition: No change. Change in medications: No change. Side effects from Medications: None. Objective- MSE: Alert and attentive. Orientation times three. Dressed and Groomed: Appropriately. Pleasant and cooperative. Psychomotor Activity: Normal. Speech: Normal in tone, quality, rapid and overproductive. Mood: I feel good Affect: Intense, anxious and superficial SI or HI: None. Perceptual disturbance: None. Thought Content: No paranoia or other delusional thinking noted. Thought Process: Normal. Cognition: Intact Judgment and Insight: Poor AIMS: Normal. Labs: No new labs. Diagnosis: No change Plan and Recommendations: Continue current Medications. Add Pristiq 50 mg po daily. Monitor MS and side effects of medications and adjust medications accordingly. Provide supportive psychotherapy. The patient provided psychoeducation and advised The patient provided Substance abuse counseling. Smoke cessation therapy. The patient to attend prasad activities. Medication Consent with explanation of risk/benefits and side effects: Explained and obtained.
[2023-12-10] MEDS: DESVENLAFAXINE SUCCINATE 50 MG TAB.ER.24H PO SCH (10:38)
--- NOTE | 2023-12-10 16:18 | P.PN ---
Progress Note - Text Progress Note Date: 12/10/23 Follow-up Mediation Review Chief Complaint: I am doing good. Subjective: The patient noted that he is feeling good and would like to be discharged. The patient feels that Depakote is evening out his mood. He denied any episodes of anger outburst or aggressive behavior. He did complain of being tired. He things that it could be due Depakote. No other complaints reported. The patient has been compliant with medications. The patient has not been attending the groups. The participation is limited. The interaction with staff and peers is limited. The patient is compliant with treatment recommendations. Leading questions: The patient admitted to Depression and Anxiety. Denied SI or HI. Denied symptoms consistent with psychosis Sleep and Appetite: Fair. Change in family/ living/job/financial/daily routine: No change. Change in medical condition: No change. Change in medications: No change. Side effects from Medications: None. Objective- MSE: Alert and attentive. Orientation times three. Dressed and Groomed: Appropriately. Pleasant and cooperative. Psychomotor Activity: Normal. Speech: Normal in tone, quality, rapid and over productive. Mood: Good. Affect: Intense, anxious, and superficial SI or HI: None. Perceptual disturbance: None. Thought Content: No paranoia or other delusional thinking noted. Thought Process: Normal. Cognition: Intact Judgment and Insight: Poor AIMS: Normal. Labs: No new labs. Diagnosis: No change Plan and Recommendations: Continue current Medications. Monitor MS and side effects of medications and adjust medications accordingly. Provide supportive psychotherapy. The patient provided psychoeducation and advised The patient provided Substance abuse counseling. Smoke cessation therapy. The patient to attend prasad activities. Medication Consent with explanation of risk/benefits and side effects: Explained and obtained.
[2023-12-10 17:33] VITALS: PULSE 109
[2023-12-10] MEDS: hydrOXYzine pamoate 25 MG CAP PO PRN (18:46)
[2023-12-10] MEDS: haloperidoL 5 MG TAB PO PRN (18:47)
[2023-12-10] MEDS: LORazepam 2 MG/ML INJ IM PRN (20:40)
[2023-12-10 20:45] VITALS: BP 115/75
--- NOTE | 2023-12-11 21:54 | P.DS ---
Providers Date of admission: 12/07/23 15:53 Expected date of discharge: 12/11/23 Attending physician: Damon Berry MD Consults: 12/07/23 15:55 Consult Physician Routine Consulting Provider: Monae Grossman Consult Reason/Comments: H&P and medical Do you want consulting provider notified?: Yes Primary care physician: Stated None - Discharge Diagnosis(es) (1) Depression, unspecified Status: Acute Priority: High (2) Methamphetamine abuse Status: Acute Priority: Medium (3) Alcohol abuse Status: Acute Priority: Medium Hospital Course: Discharge Summary HPI: IDENTIFYING DATA: Patient is a 38 year old male with a history of polysubstance use disorder HPI: patient was brought to the hospital by his parents due to concern of s ubstance abuse. Per petition, patient was tearful, paranoid, restless, and stated that he wanted to swallow a lot of drugs" pulled the trigger" since being on the mental health unit,, patient has been very aggressive and has needed emergency medications. In the morning, patient was sedated due to the medications. Later in the day, on interview, patient stated that Depakote has helped him calm his anger significantly. He requested to be back on Depakote. PAST PSYCHIATRIC HISTORY: -polysubstance use disorder -admitted in August 2023 for suicide attempt, discharged on Invega 6 hs, clonidine 0.1 tid, Zoloft 50 -admitted in 2022 for psychosis and discharged on Invega and naltrexone PMH: HTN, macrocytosis, GERD ALLERGIES: as per EMR CHEMICAL DEPENDENCY HISTORY: Tobacco: 2 packs/day x 5 years Alcohol: " 5-6 tall boys" x 20 years Recreational drugs: Marijuana, methamphetamine, cocaine; patient unsure for how long he is using and when he last used it. Hospital Course: After admission, the patient was involved in pharmacotherapy, prasad milieu, and individual psychodynamic psychotherapy. The patient was started on Invega, Pristiq and Depakote. The dose was titrated to obtain the desire effects. The patient tolerated medications well without any side effects. The patient was also involved in prasad activities. The patient attended the groups and participated well. The patient interacted with peers and staff well. The patient slowly started showing improvement. The hospital course was uneventful. The patient symptoms of depression, suicidal and homicidal ideations abated. The p sychosis improved. The patient was stable to be discharged to out-patient care. The patient did not have any guns or weapons in possession at home. MSE: General Appearance: Patient appears to be older than stated age is alert, attempts to be cooperative. well built shaved head, several tattoos, Behavior: agitated at times Speech: Loud Mood/Affect: agitated Suicidality/Homicidality: could not assess as interview was limited due to aggression Perceptions: not RIS Though content/process: goal directed Memory and concentration: AOX3, grossly intact for the purposes of this session Judgment and insight: Poor STRENGTHS/WEAKNESSES: strength is that patient is resilient. Weakness is that patient has poor judgment and is impulsive INTELLECT: average IMPRESSIONS: Depressive Disorder, unspecified Methamphetamine use disorder Opiate use disorder Cannabis use disorder Alcohol use disorder Nicotine dependence Homelessness Plan: The patient to be discharged today. The patient has attained good improvement since admission. He is stable to be followed as an outpatient. The patient is not suicidal or Homicidal. He does not pose any harm to self or others. The patient remains at a greater risk of self-harm or harm to others than general population on a chronic basis due to psychiatric illness and substance abuse. The patient will continue taking following medication post discharge. The importance of medication compliance and maintaining regular appointments at psychiatric out-pt and PCP clinic was explained and encouraged. The patient was also advised to seek alcohol counseling and attend AA/NA meetings. The understood and agreed with the recommendations. trolley worker to arrange for and conduct family meeting to ensure safety upon discharge and answer any questions. The social media developer to arrange for patients follow-up appointments at [facility] for psychiatric care along with follow-up with PCP. The patient provided psychoeducation. Advised to call 911 or go to nearest ED or call this hospital in case of acute worsening of symptomatology, severe side effects or having suicidal, homicidal thoughts and feeling unsafe at home. Patient Condition at Discharge: Stable Plan - Discharge Summary Discharge Rx Participant: Yes New Discharge Prescriptions: New Divalproex [Depakote] 250 mg PO TID 15 Days #45 tab Paliperidone [Invega] 9 mg PO HS 15 Days #45 tab Desvenlafaxine Succinate [Pristiq ER] 50 mg PO DAILY 15 Days #15 tab Continue Thiamine [Vitamin B-1] 100 mg PO DAILY tab Nicotine 14Mg/24Hr Patch [Habitrol] 1 patch TRANSDERM DAILY 14 Days #14 patch Folic Acid 1 mg PO DAILY tab cloNIDine HCL [Catapres] 0.1 mg PO TID 30 Days #90 tab Pantoprazole [Protonix] 40 mg PO AC-BRKFST 30 Days #30 tab Albuterol Inhaler [Ventolin Hfa Inhaler] 2 puff INHALATION RT-QID PRN #1 each PRN Reason: Shortness Of Breath Or Wheezing hydrOXYzine pamoate [Vistaril] 50 mg PO DAILY PRN 30 Days #60 cap PRN Reason: Anxiety lisinopriL [Prinivil] 10 mg PO DAILY 30 Days #30 tab Discontinued Paliperidone [Invega] 6 mg PO HS 30 Days #30 tab Nicotine Gum (Polacrilex) [Nicorette] 2 mg BUCCAL Q4HR PRN pieceofgum PRN Reason: Nicotine Cravings Sertraline [Zoloft] 50 mg PO DAILY 30 Days #30 tab Discharge Medication List Folic Acid 1 mg PO DAILY tab 09/22/23 [Rx] Thiamine [Vitamin B-1] 100 mg PO DAILY tab 09/22/23 [Rx] Albuterol Inhaler [Ventolin Hfa Inhaler] 2 puff INHALATION RT-QID PRN #1 each 09/26/23 [Rx] Pantoprazole [Protonix] 40 mg PO AC-BRKFST 30 Days #30 tab 09/26/23 [Rx] cloNIDine HCL [Catapres] 0.1 mg PO TID 30 Days #90 tab 09/26/23 [Rx] hydrOXYzine pamoate [Vistaril] 50 mg PO DAILY PRN 30 Days #60 cap 09/26/23 [Rx] lisinopriL [Prinivil] 10 mg PO DAILY 30 Days #30 tab 09/26/23 [Rx] Desvenlafaxine Succinate [Pristiq ER] 50 mg PO DAILY 15 Days #15 tab 12/11/23 [Rx] Divalproex [Depakote] 250 mg PO TID 15 Days #45 tab 12/11/23 [Rx] Nicotine 14Mg/24Hr Patch [Habitrol] 1 patch TRANSDERM DAILY 14 Days #14 patch 12/11/23 [Rx] Paliperidone [Invega] 9 mg PO HS 15 Days #45 tab 12/11/23 [Rx] Follow up Appointment(s)/Referral(s): [facility] [Outside] - 1 Week (December 15 @ 1030 a.m. with Howard for out-patient December 18 @ [address] Romo) [facility] Patient Instructions/Handouts: How to Stop Smoking (DC), Brief Psychotic Disorder (DC) Activity/Diet/Wound Care/Special Instructions: Avoid the use of street drugs and alcohol. Take all medications as prescribed. When you are in need of refills on your medications, please contact your outpatient medical provider and/or outpatient psychiatrist. Please go to your scheduled outpatient appointments for aftercare treatment. If symptoms return or become worse, call the crisis line at or and/or visit the nearest emergency room for assistance. National Suicide and Crisis Lifeline - call or text 967. Discharge/Stand Alone Forms: AA Meetings Dist 22 & 24 - [facility] Discharge Disposition: HOME SELF-CARE
== END 2023-12-11 13:25 | disposition home or self-care (01) | DRG 881 ==
LOC: EC 03:00 → 3MHU 15:53
PROVIDERS: ADMIT Psychiatry & Neurology Psychiatry; ATTEND Psychiatry & Neurology Psychiatry
DX: F32.A Depression, unspecified (principal); Z59.00 Homelessness unspecified; F19.139 Other psychoactive substance abuse with withdrawal, unspecified; K21.9 Gastro-esophageal reflux disease without esophagitis; I10 Essential (primary) hypertension; D75.89 Other specified diseases of blood and blood-forming organs; F19.129 Other psychoactive substance abuse with intoxication, unspecified; J44.9 Chronic obstructive pulmonary disease, unspecified; F11.10 Opioid abuse, uncomplicated; F12.10 Cannabis abuse, uncomplicated; F90.9 Attention-deficit hyperactivity disorder, unspecified type; F41.9 Anxiety disorder, unspecified; F43.10 Post-traumatic stress disorder, unspecified; F17.210 Nicotine dependence, cigarettes, uncomplicated; F15.10 Other stimulant abuse, uncomplicated; F10.10 Alcohol abuse, uncomplicated; E86.0 Dehydration; E63.9 Nutritional deficiency, unspecified; Z11.52 Encounter for screening for COVID-19; Z81.8 Family history of other mental and behavioral disorders; Z79.899 Other long term (current) drug therapy; Z91.51 Personal history of suicidal behavior; Z71.41 Alcohol abuse counseling and surveillance of alcoholic; Z71.6 Tobacco abuse counseling; Z71.51 Drug abuse counseling and surveillance of drug abuser
CPT/HCPCS: 36415; 80053; 80061; 80143; 80179; 80306; 80320; 81001; 82607; 83036; 84443; 85025; 87636; 99285

== ENCOUNTER 2023-12-17 23:03 | Emergency (ER) | payer BC, OTHER ==
[2023-12-17] MEDS ORDERED: KETOROLAC 15 MG/ML 1 ML VIAL IVP STA (23:13)
[2023-12-17 23:14] LABS: Glucose,Whole Blood 144 mg/dL (70-110)
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
[2023-12-17 23:21] LABS: Basophils # (A) 0.1 k/uL (0-0.2); Basophils % (A) 1 %; Eosinophils # (A) 0.2 k/uL (0-0.7); Eosinophils % (A) 2 %; HCT 36.7 % (39.0-53.0); HGB 12.8 gm/dL (13.0-17.5); Lymphocytes # (A) 1.9 k/uL (1.0-4.8); Lymphocytes % (A) 19 %; MCH 34.2 pg (25.0-35.0); MCHC 34.9 g/dL (31.0-37.0); MCV 97.8 fL (80.0-100.0); Mean Platelet Volume 6.4; Monocytes # (A) 0.5 k/uL (0-1.0); Monocytes % (A) 5 %; Neutrophils # (A) 7.1 k/uL (1.3-7.7); Neutrophils % (A) 72 %; Platelet Count 449 k/uL (150-450); RBC 3.75 m/uL (4.30-5.90); WBC 9.9 k/uL (3.8-10.6)
[2023-12-17 23:33] LABS: ALT 21 U/L (4-49); AST 35 U/L (17-59); African American GFR (CKD) >90 (>60 ml/min/1.73 sqM); Albumin 4.2 g/dL (3.5-5.0); Alcohol <10 mg/dL; Alkaline Phosphatase 59 U/L (38-126); Anion Gap 9 mmol/L; Blood Urea Nitrogen 24 mg/dL (9-20); Calcium 8.8 mg/dL (8.4-10.2); Carbon Dioxide 20 mmol/L (22-30); Chloride 104 mmol/L (98-107); Glucose 129 mg/dL (74-99); Non-African American GFR(CKD) >90 (>60 ml/min/1.73 sqM); Potassium 3.5 mmol/L (3.5-5.1); Sodium 133 mmol/L (137-145); Total Bilirubin 0.4 mg/dL (0.2-1.3); Total Protein 6.2 g/dL (6.3-8.2)
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
[2023-12-17 23:52] LABS: INR 0.9 (<1.2); Prothrombin Time 10.1 sec (10.0-12.5)
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
[2023-12-18 00:48] VITALS: BP 140/94; PULSE 89; RESP 18; TEMP 98.8
== END 2023-12-18 00:34 | disposition left against medical advice (07) ==
LOC: EC 23:03
DX: S02.2XXA Fracture of nasal bones, initial encounter for closed fracture (principal); S61.411A Laceration without foreign body of right hand, initial encounter; S61.412A Laceration without foreign body of left hand, initial encounter; F17.200 Nicotine dependence, unspecified, uncomplicated; Z91.030 Bee allergy status; Z53.29 Procedure and treatment not carried out because of patient's decision for other reasons; V23.49XA Other motorcycle driver injured in collision with car, pick-up truck or van in traffic accident, initial encounter; Y92.410 Unspecified street and highway as the place of occurrence of the external cause
CPT/HCPCS: 36415; 93005; 86900; 86901; 80053; 83605; 84484; 85025; 85610; 85730; 86850; 80320; 72170; 71045; 72125; 70486; 70450; 71260; 74177; 99284; G0390; Q9967